=== PATIENT | male | born 1945 | race Caucasian/White ===

== ENCOUNTER 2021-01-22 17:29 | Outpatient (RCR) | payer MEDICARE, OTHER, SELFPAY ==
[2021-01-22] MEDS: COVID-19 VACC, MRNA(PFIZER)/PF 30 MCG/0.3 ML SYRINGE IM (15:23)
[2021-02-12] MEDS: COVID-19 VACC, MRNA(PFIZER)/PF 30 MCG/0.3 ML SYRINGE IM (14:38)
== END 2021-04-28 23:59 ==
LOC: IMMUN 17:29
PROVIDERS: PCP Family Medicine; Visit Provider Family Medicine
DX: Z23 Encounter for immunization (principal)
CPT/HCPCS: 0001A; 0002A; 91300

== ENCOUNTER → 2021-07-23 12:36 | Outpatient (CLI) | payer MEDICARE, OTHER, SELFPAY ==
[2021-07-23] MEDS: Methacholine Chloride 18 ml neb kit INHALATION (13:00)
--- NOTE | 2021-07-23 16:10 | BRONCHALL_ITS ---
Bronchoprovocation Challenge Bronchoprovocation Challenge Bronchoprovocation Challenge: BRONCHOPROVOCATION STUDY INTERPRETATION Brief HPI: Patient is a 75 year old male, currently under the care of Dr. Enciso, who presents to [facility] for a bronchoprovocation study secondary to diagnosis of cough. Respiratory therapist reports good effort and reproducible results. Interpretation: Initial spirometry showed no large airways obstructive ventilatory defect. The patient was then given increasingly concentrated doses of methacholine in a stepwise/standardized fashion, using a modified ATS protocol. The patient?s maximum reduction in FEV1 was 5 percent predicted. Impression: Negative Bronchoprovocation study. This is NOT consistent with the diagnosis of asthma.
== END ==
LOC: PSN 12:38
PROVIDERS: PCP Family Medicine; Referring Provider Internal Medicine Critical Care Medicine; Visit Provider Internal Medicine Critical Care Medicine
DX: R05 Cough (principal)
CPT/HCPCS: 94070; 95070

== ENCOUNTER → 2022-04-22 | Outpatient (CLI) | payer MEDICARE, OTHER, SELFPAY ==
--- NOTE | 2022-04-22 11:49 | RAD_ITS ---
STUDY: X-RAY CHEST REASON FOR EXAM: Male, 76 years old. Chronic Cough TECHNIQUE: PA and lateral views of the chest. COMPARISON: None. FINDINGS: There is elevation of the right hemidiaphragm. There is no demonstrated pleural abnormality. There is borderline cardiomegaly. Normal mediastinum and braulio. Normal visualized pulmonary arteries. There is atherosclerotic tortuosity of the aortic arch and descending thoracic aorta. There are diffuse degenerative changes of the visualized thoracic spine. Normal visualized ribs, clavicles, and shoulders. There is no demonstrated abnormality of the visualized soft tissue structures of the upper abdomen. RAD/Chest PA and Lateral IMPRESSION: Elevation of the right hemidiaphragm. Electronically Signed: Lambert Almanza MD at 12:30 EDT ,
== END | disposition home or self-care (01) ==
LOC: RAD 11:49
PROVIDERS: PCP Family Medicine; Referring Provider Internal Medicine Critical Care Medicine; Visit Provider Internal Medicine Critical Care Medicine
DX: R05.3 Chronic cough (principal)
CPT/HCPCS: 71046

== ENCOUNTER → 2022-04-29 | Outpatient (CLI) | payer MEDICARE, OTHER, SELFPAY ==
--- NOTE | 2022-04-29 08:09 | CT_ITS ---
STUDY: CT CHEST WITHOUT CONTRAST REASON FOR EXAM: Male, 76 years old. Chronic cough with normal CXR RADIATION DOSAGE (If Supplied By Facility): CTDIvol = ( 17.32 ) mGy, DLP = ( 528.08 ) mGycm TECHNIQUE: Transaxial imaging was performed without the administration of intravenous contrast material. Multiplanar coronal and sagittal images were reformatted. Individualized dose optimization techniques were used for this CT. COMPARISON: Comparison is made with prior study dated 04/22/2022. FINDINGS: CHEST There is elevation of the right hemidiaphragm. There is no demonstrated pleural abnormality. There are calcifications of the coronary arteries. There are multiple small lymph nodes within the mediastinum, which are normal in size and morphology most compatible with reactive lymph hyperplasia. Normal hilar regions. Normal unenhanced pulmonary arteries. There is atherosclerotic calcification of the aortic arch with tortuosity and elongation of the aortic arch and descending thoracic aorta. There are multi-level degenerative changes of the thoracic spine. Multiple hepatic cysts. CT/Chest without Contrast IMPRESSION: Elevation of the right hemidiaphragm. Multiple hepatic cysts. Electronically Signed: Lambert Almanza MD at 10:49 EDT ,
== END | disposition home or self-care (01) ==
LOC: CT 08:07
PROVIDERS: PCP Family Medicine; Referring Provider Internal Medicine Critical Care Medicine; Visit Provider Internal Medicine Critical Care Medicine
DX: R05.3 Chronic cough (principal); K76.89 Other specified diseases of liver
CPT/HCPCS: 71250

== ENCOUNTER 2023-01-02 21:29 | Inpatient (IN) | payer MEDICARE, OTHER, SELFPAY ==
[2023-01-02] VITALS (8 sets, daily range): BP systolic 98–113; BP diastolic 52–94; PULSE 96–107; RESP 21–45; TEMP 36.8; O2SAT 94–98; BMI 27.1
--- NOTE | 2023-01-02 19:27 | PCM.HOSP.N ---
Hospitalist Note TRANSFER INFORMATION SUMMARY: The patient is a 77 y/o M w/ PMHx: CKD stage III unclear subtype, Essential tremor, PAF on Eliquis, HTN, HLD, GERD, Allergic rhinitis, Hx COVID-19 11/2022 requiring hospitalization with associated Chronic Hypoxic Respiratory Failure (3L NC), following with Dr. Enciso Pulmonary Medicine for chronic cough with initial concern possible Asthma variant however now more concern chronic idiopathic cough with most recent visit 12/27/[address] evaluation to rule out microaspiration, restart allergy immunotherapies with start on gabapentin versus pregabalin if these other etiologies ruled out in case chronic idiopathic cough who presents to the [facility] ED on 01/02/23 with history of increasing cough, nonproductive above his prior baseline with increasing fatigue and malaise with no specific fevers or chills and no excessive dyspnea above his prior baseline however at home he reportedly checked his oxygen level and it was 70% despite being on his 3 L nasal cannula with no reported recent orthopnea, weight gain and only mild edema to his lower extremities specifically with just a sock line therefore not above baseline however given ongoing events and hypoxia prompted ED evaluation. Work-up in the outside facility included: VS: 118/64, 112 (AF), 24, 36.8, NRB with ABG obtained with 94% oxygenation at that time time-->High flow NC (15L) 96% EKG: atrial fibrillation with rate 110s, depressions I and mild depression on III but baseline EKGs prior with notable ST-T changes also. Medications: Vanc/Zosyn, Lasix 40 mg IV CXR with moderate interval worsening of mixed bilateral interstitial and alveolar airspace disease greatest throughout the left lung likely on the basis of atypical infection or inflammatory process, CTPA w/ limited exam secondary to respiratory motion artifact, no definite pulmonary embolism the level of the proximal segmental pulmonary arteries, moderate interval worsening of multifocal bilateral groundglass opacities with interlobular septal thickening greatest throughout the left lung and right upper lobe, may be on the basis of worsening atypical infection or inflammatory process, superimposed pulmonary edema cannot be excluded, multiple subcentimeter mediastinal and left hilar lymph nodes likely reactive in etiology, ABG with pH 7.34, PCO2 42.1, PO2 76, bicarb 22.9, O2 saturation 94%, lactic acid 3.7, troponin high-sensitivity initial 16.7, BNP 3114, BMP with sodium 142, potassium 4.6, chloride 105, BUN/creatinine 24/1.39, glucose 159, CBC with WBC 17.7, hemoglobin 14.1, platelet 269 with left shift and increased monocytes. Transfer: ICU bed, possible BL PNA, Acute Hypoxic Respiratory Failure, Possible CHF exacerbation.
--- NOTE | 2023-01-02 22:01 | ECHOD_ITS ---
Reason For Study: Dyspnea/SOB Procedure This was a 2D Doppler, Color Flow transthoracic echocardiogram. Technically difficult study, patient scanned sitting upright due to SOB and Coughing. Exam performed portable in ICU/CCU. Left Ventricle Normal LV size. Left ventricular systolic function is normal. The estimated ejection fraction is 65 %. No regional wall motion abnormalities noted. Right Ventricle Normal RV size. Normal systolic function. Atria Normal left atrium. Normal right atrium. Mitral Valve Normal mitral valve. Tricuspid Valve Normal tricuspid valve. Mild tricuspid valve insufficiency. Pulmonary artery systolic pressure is 26 mmHg. Aortic Valve Trisinus/trileaflet aortic valve. Mild focal aortic valve calcification. Mild (1+) aortic valve insufficiency. Great Vessels Mildly dilated aortic root. The pulmonary artery is normal size. Normal inferior vena cava. Pericardium/Pleural No pericardial effusion. MMode/2D Measurements & Calculations LVIDd: 5.0 cm IVSd: 0.75 cm Ao root diam: 4.1 cm LVIDs: 4.1 cm LVPWd: 0.91 cm LA dimension: 4.2 cm FS: 19.3 % LAV(MOD-bp): 36.4 ml LA A4 area: 12.2 cm2 RA A4 area: 13.3 cm2 LAV(MOD-bp) Indexed: 18.7 ml/m2 LAV(MOD-sp2): 34.5 ml LAV(MOD-sp4): 29.2 ml Doppler Measurements & Calculations MV E max andry: 112.6 cm/sec MV V2 max: 96.2 cm/sec Ao V2 max: 84.6 cm/sec MV max P.7 mmHg Ao max P.9 mmHg MV V2 mean: 47.1 cm/sec Ao V2 mean: 60.5 cm/sec MV mean P.1 mmHg Ao mean P.7 mmHg MV V2 VTI: 21.6 cm Ao V2 VTI: 16.8 cm AI max andry: 394.1 cm/sec LV V1 max: 61.5 cm/sec PA V2 max: 70.7 cm/sec AI max P.1 mmHg LV V1 max P.5 mmHg AI dec slope: 165.8 cm/sec2 AI P1/2t: 696.1 msec TR max andry: 242.1 cm/sec TR max P.4 mmHg ECHO/Echo Complete Interpretation Summary Normal LV size. Left ventricular systolic function is normal. The estimated ejection fraction is 65 %. Mildly dilated aortic root. Mild (1+) aortic valve insufficiency. Pulmonary artery systolic pressure is 26 mmHg. Ordering Physician: Jules Parkinson Performed By: Luc Flores RCS
--- NOTE | 2023-01-02 22:09 | HP.PCM.HOS_ITS ---
HPI - General General Date of Admission: 01/02/23 Date of Service: 01/02/23 Chief Complaint: Hypoxia HPI Narrative MADISON TAMEZ, is a 77 M with a significant history of CKD stage III unclear type, essential tremor, proximal A-fib on Eliquis, hypertension, hyperlipidemia, GERD, allergic rhinitis, history of COVID-19 in November 2022 requiring hospitalization with associated chronic hypoxic respiratory failure (3L nasal cannula oxygen), and who follows with Dr. Enciso pulmonary medicine for chronic cough with initial concern of possible asthma variant. However now more concerning chronic idiopathic cough with most recent visit 12/27/2022 with planned speech therapy evaluation to rule out microaspiration if restart allergy therapies fails; and who presents to outside hospital ED on 01/02/2023 with hypoxia of 62% on his chronic home oxygen of 3L but with no increasing cough or SOB above his baseline. Although he continues to have SOB and non productive cough that are all baseline. He denies any edema. He thinks he has lost some weight. Work-up in the outside facility included: Vital signs 118/64, 112 (A-fib), 24, 36.8 C; nonrebreather with ABG obtained with 94% oxygenation at that time. Transition to high flow nasal cannula (15 L) with oxygen 96%. EKG: Atrial fibrillation with rates of 110s, no change in EKG compared to prior. Medications: Vancomycin/Zosyn, Lasix 40 mg IV. Chest x-ray with moderate interval worsening of mixed bilateral interstitial and alveolar airspace disease greatest throughout the left lung likely on the basis of atypical infection or inflammatory process. CTPA with limited exam secondary to respiratory motion artifacts, no definite pulmonary embolism the level of the proximal segmental pulmonary arteries, moderate interval worsening of multifocal bilateral groundglass opacities with interlobular septal thickening greatest throughout the left lung and right upper lobe, may be on the basis of worsening atypical infection or inflammatory process, superimposed pulmonary edema cannot be excluded, multiple subsegmental mediastinal and left hilar lymph nodes likely reactive in etiology, ABG with pH of 7.34, PCO2 42.1, PO2 76, bicarb 22.9, oxygen saturation 94%, lactic acid 3.7, troponin high-sensitivity initial 16.7, BNP 3114, BMP with sodium of 142, potassium 4.6, chloride 105, BUN/creatinine 24/1.39, glucose 159, CBC with WBC of 17.7, hemoglobin 14.1, platelet 269 with left shift and increased monocytes. [facility] Medical History Allergic rhinitis Chronic respiratory failure with hypoxia CKD (chronic kidney disease), stage III Essential tremor History of COVID-19 HLD (hyperlipidemia) Hypercholesteremia Hypertension PAF (paroxysmal atrial fibrillation) Thyroid nodule Unexplained chronic cough Home Medications amlodipine 5 mg tablet (Norvasc) 5 mg PO DAILY 07/08/21 [History Last Taken Unknown] cholecalciferol (vitamin D3) 50 mcg (2,000 unit) chewable tablet 50 mcg PO DAILY 07/08/21 [History Last Taken Unknown] coenzyme Q10 100 mg capsule 100 mg PO DAILY 07/08/21 [History Last Taken Unknown] ezetimibe 10 mg-simvastatin 10 mg tablet (Vytorin) 1 tab PO DAILY 07/08/21 [History Last Taken Unknown] fluticasone propionate 50 mcg/actuation nasal spray,suspension 1 spray intranasal DAILY 07/08/21 [History Last Taken Unknown] magnesium citrate 100 mg capsule 100 mg PO DAILY 07/08/21 [History Last Taken Unknown] montelukast 10 mg tablet (Singulair) 10 mg PO DAILY 07/08/21 [History Last Taken Unknown] multivitamin (Multiple Vitamins tablet) 1 tab PO DAILY 07/08/21 [History Last Taken Unknown] omega-3 fatty acids 1,000 mg capsule (Fish Oil Concentrate) 3,000 mg PO DAILY 07/08/21 [History Last Taken Unknown] omeprazole 20 mg capsule,delayed release 20 mg PO DAILY 07/08/21 [History Last Taken Unknown] albuterol sulfate 2.5 mg/3 mL (0.083 %) solution for nebulization 2.5 mg (3 mL) inhalation Q4H PRN shortness of breath or wheezing #180 mL 05/20/22 [Rx Last Taken Unknown] topiramate 25 mg tablet 25 mg PO DAILY 11/09/22 [History Last Taken Unknown] fluticasone propionate 230 mcg-salmeterol 21 mcg/actuation HFA inhaler (Advair HFA) 2 puff inhalation BID #3 ea 12/08/22 [Rx Last Taken Unknown] benzonatate 200 mg capsule 200 mg PO TID PRN cough #90 caps 12/10/22 [Rx Last Taken Unknown] guaifenesin 1,200 mg tablet, extended release 12 hr 1,200 mg PO Q12H #60 tabs 12/10/22 [Rx Last Taken Unknown] apixaban 5 mg tablet (Eliquis) 5 mg PO BID Check with primary doctor 12/27/22 [History Last Taken Unknown] Allergy/AdvReac Type Severity Reaction Status Date / Time house dust Allergy Intermediate Hives Verified 12/27/22 10:58 animal Allergy Intermediate Hives Uncoded 12/27/22 10:58 grass teofilo' Allergy Intermediate Hives Uncoded 12/27/22 10:58 molds Allergy Intermediate Food Uncoded 12/27/22 10:58 Allergy tree pollen Allergy Intermediate Hives Uncoded 12/27/22 10:58 weeds Allergy Intermediate Hives Uncoded 12/27/22 10:58 week pollen Allergy Intermediate Hives Uncoded 12/27/22 10:58 Family History Father Prostate cancer Sister Diabetes Surgical History H/O colonoscopy History of arthroscopy of shoulder History of eye surgery Social History household members: spouse Smoking Status: Former smoker quit date: 11/21/1966 how long ago did patient quit smoking: Quit cigarette tobacco use 11/21/1966. alcohol intake: never substance use type: does not use ROS ROS Narrative Pertinent positives and pertinent negatives as noted in HPI. All other systems were reviewed and are negative Vital Signs Vital Signs Vital Signs: 01/02/23 21:51 01/02/23 22:00 Pulse Strength Normal (2+) Respiratory Effort Short of Breath Accessory Muscle Use Respiratory Pattern Tachypnea Oxygen Delivery Method Airvo Oxygen Flow Rate (L/min) 50 Fraction of Inspired Oxygen (FIO2) 83 Weight Weight: 80.9 kg Body Mass Index (BMI) 27.1 Physical Exam Narrative Physical exam: General: Well-nourished, well-developed. Head: Normocephalic, atraumatic, no tenderness Eyes: Vision is grossly intact. EOMI ENT, no trauma, moist mucous membranes, no rhinorrhea Neck: Nontender, No thyromegaly. CVS: Tachycardia. S1-S2 present. No murmur, gallop or rub. Respiratory : Conversational dyspnea; Bibasilar Fine rales. Chest wall nontender, no wheezing Abdomen: Soft, nontender, nondistended, normal bowel sounds, no masses : Deferred Back: Nontender, no CVA tenderness, no midline spinal tenderness, deformities, step-offs Extremities: Nontender full range of motion, no trauma Skin: Normal color, no trauma, abrasions Neuro: Alert, oriented, cranial nerves II through XII grossly intact. Psychiatry: Normal mood. Normal affect. Not depressed. Not anxious. Results Lab / Micro Data Result Diagrams: 01/02/23 23:00 Assessment & Plan Assessment/Plan (1) Hypoxia: (2) Acute and chronic respiratory failure with hypoxia: (3) Congestive heart failure: (4) Interstitial lung disease: PLAN: Plan Acute on on chronic respiratory failure with hypoxia/Sepsis The patient presented with sepsis due to (pneumonia) with acute sepsis related organ dysfunction as evidenced by (lactic acidosis and respiratory failure). SIRS criteria: Respiratory rate more than 20 Heart rate more than 90 WBC more than 12,000 organ dysfunction: Lactate more than 2 mmol/L. Required Airvo. Trend lactic acid. Started on vancomycin and Zosyn also has been continued.[id number] DuoNeb and PRN albuterol ordered. Other differentials include congestive heart failure as BNP was elevated at outside hospital. Unspecified whether present for reduced ejection fraction. Check echocardiogram. We will put patient on IV Lasix. Fluid restriction ordered. Daily weights ordered. Also on differential is interstitial lung disease: Scheduled Solu-Medrol ordered. Admitted to intensive care unit. Groundskeeper consult. Trend CBC and BMP. History of A-fib Stable. Eliquis continued. Hypertension Blood pressure is stable. Continue home blood pressure medications. As needed hydralazine ordered. Trend blood pressure and adjust blood pressure medications. DVT prophylaxis: Eliquis as above. Charges/Coding Visit Charges Inpatient E&M: 45974 Init Hosp L2
[2023-01-02] MEDS: 0.9% Saline Lock 10 ML Syringe IV (23:16)
[2023-01-02] MEDS: MethylPREDNISolone 125 MG/2 ML Vial IV (23:16)
[2023-01-02 23:40] LABS: Anion Gap 8 (5-15); BUN 21 mg/dL (7-18); BUN/Creat Ratio 15.3 RATIO (10-20); Calcium,Total 8.9 mg/dL (8.5-10.1); Chloride 108 mmol/L (98-107); Creatinine, Serum 1.37 mg/dL (0.70-1.30); EST Glomerular Filtration Rate 53 mL/min (>60); Est Glom Filt Rate - Afr Amer 65 mL/min (>60); Estimated Creatinine Clearance 42.99 ml/min; Glucose 162 mg/dL (74-106); Potassium 3.7 mmol/L (3.5-5.1); Sodium Level 142 mmol/L (136-145)
[2023-01-03] VITALS (32 sets, daily range): BP systolic 88–131; BP diastolic 49–77; PULSE 70–103; RESP 20–45; TEMP 35.8–36.8; O2SAT 75–98
[2023-01-03 00:01] LABS: Lactic Acid 1.7 mmol/L (0.4-1.9)
--- NOTE | 2023-01-03 00:59 | PHA.PHARE_ITS ---
Consult Pharmacy has been consulted to manage selected antiobiotic: Vancomycin Type of Consult: New start Suspected Infection: Pneumonia Labs: Sodium 142 mmol/L (136-145) 01/02/23 23:00 Potassium 3.7 mmol/L (3.5-5.1) 01/02/23 23:00 Chloride 108 mmol/L (98-107) H 01/02/23 23:00 Carbon Dioxide 26.0 mmol/L (21.0-32.0) 01/02/23 23:00 Anion Gap 8 (5-15) 01/02/23 23:00 BUN 21 mg/dL (7-18) H 01/02/23 23:00 Creatinine 1.37 mg/dL (0.70-1.30) H 01/02/23 23:00 Est GFR (MDRD) Af Amer 65 mL/min (>60) 01/02/23 23:00 Est GFR (MDRD) Non-Af 53 mL/min (>60) L 01/02/23 23:00 BUN/Creatinine Ratio 15.3 RATIO (10-20) 01/02/23 23:00 Glucose 162 mg/dL (74-106) H 01/02/23 23:00 Microbiology: Microbiology 01/02/23 23:00 Urine, Clean Catch Legionella Antigen - Final 01/02/23 23:00 Urine, Clean Catch Streptococcus pneumoniae Antigen (M - Final Goal Trough: 15-20 mcg/mL Pharmacy Plan for Drug Dosing: Pharmacy Service will continue to monitor and adjust dosing as required. Medications Vancomycin HCl 1,250 mg/ (Sodium Chloride) 275 mls @ 167 mls/hr IV X1 ONE Stop: 01/03/23 02:08 Last Admin: 01/03/23 00:55 Dose: 167 mls/hr Vancomycin HCl () 500 mg in 100 mls @ 100 mls/hr IV Q12H [facility] Follow-Up Labs: Trough Vancomycin Labs to be done on [date and time ordered]: 01/04 @ 3870
[2023-01-03 05:15] LABS: Absolute Lymphocyte Count 0.58 X10^3/uL (0.83-4.51); Absolute Neutrophil Count 12.6 X10^3/uL (2.0-7.7); Basophil# 0.03 X10^3/uL; Basophil% 0.2 % (0-1); Hematocrit 40.9 % (40-54); Hemoglobin 12.8 g/dL (13.0-16.5); Lymphocyte # 0.58 X10^3/ul (0.83-4.51); Lymphocyte % 4.3 % (19-41); Mean Corp Hgb Conc 31.3 g/dL (32-36); Mean Corpuscular Volume 95.8 fL (80-94); Monocyte# 0.21 X10^3/uL; Monocyte% 1.6 % (0-10); NRBC Flagged by Analyzer 0 % (0-5); Neutrophil # 12.59 X10^3/uL (2.7-7.7); Neutrophil % 93.1 % (47-70); POSITIVE DIFFERENTIAL YES; Platelet Count 219 K/mm3 (150-450); RBC Distribution Width CV 14.7 % (11.6-14.6); RBC Distribution Width SD 51.7 fl (35.1-43.9); Red Blood Count 4.27 M/mm3 (4.6-6.2); White Blood Count 13.5 K/mm3 (4.4-11.0)
[2023-01-03 05:17] LABS: Differential Indicated SCAN CRITERIA MET
[2023-01-03 05:36] LABS: ALB/GLOB Ratio 0.4 RATIO (0.9-2.4); AST(SGOT) 14 U/L (15-37); Alanine Aminotransfer ALT/SGPT 16 U/L (16-61); Albumin, Serum 1.8 g/dL (3.2-5.0); Alkaline Phosphatase 81 U/L (45-117); Anion Gap 8 (5-15); BUN 24 mg/dL (7-18); BUN/Creat Ratio 19.2 RATIO (10-20); Calcium,Total 8.6 mg/dL (8.5-10.1); Chloride 109 mmol/L (98-107); Creatinine, Serum 1.25 mg/dL (0.70-1.30); EST Glomerular Filtration Rate 59 mL/min (>60); Est Glom Filt Rate - Afr Amer 72 mL/min (>60); Estimated Creatinine Clearance 47.12 ml/min; Globulin 4.5 g/dL (2.2-4.2); Glucose 215 mg/dL (74-106); Potassium 3.7 mmol/L (3.5-5.1); Protein, Total 6.3 g/dL (6.4-8.2); Sodium Level 142 mmol/L (136-145)
[2023-01-03 05:56] LABS: Anisocytosis RARE; Macrocytosis RARE
--- NOTE | 2023-01-03 06:57 | EX.PCM.CONCC ---
Assessment & Plan Assessment/Plan (1) Acute and chronic respiratory failure with hypoxia: (2) Congestive heart failure: PLAN: Plan RECOMMENDATIONS: 1. Obtain echocardiogram 2. Continue diuretics as tolerated 3. Empiric antibiotics pending culture 4. Wean supplemental oxygen as tolerated 5. Potentially repeat CT scan once patient is euvolemic 6. Increase activity as tolerated 7. Transition to nasal cannula once Airvo is at 40% IMPRESSIONS: 1. Acute hypoxic respiratory failure Unclear exact etiology. Patient did have COVID-19 last month, so postinflammatory pulmonary fibrosis would be a concern. CT of the chest does show some groundglass opacities and may be consistent with an atypical pneumonia. Patient is not reporting any change in cough, but BNP is significantly elevated indicating possible CHF. We will continue to diurese as tolerated. Reasonable to continue with empiric antibiotics pending cultures and response to diuretics. Mediastinal lymphadenopathy may be secondary to previous COVID. Steroids are reasonable for now. 2. A-fib with RVR Patient with a history of chronic A-fib on anticoagulation. Heart rate appears to be better controlled at this time. We will continue with baseline medications. High clinical suspicion for an element of congestive heart failure, but echocardiogram is currently pending. 3. Hypertension/advanced age/concern for aspiration/environmental allergies Complicates care, management, recovery and prognosis. Okay to continue with baseline medications for hypertension. Patient could be continued on baseline allergy medications. Will obtain a speech therapy evaluation given outpatient concerns. HPI Consult Data Date of Consult: 01/03/23 HPI Narrative Reason for Consultation: Acute hypoxic respiratory failure HPI Narrative: MADISON TAMEZ is a 77 M, with past medical history listed below, who presents to [facility] as a transfer from an outside facility secondary to acute hypoxic respiratory failure. Patient has been on 3 L/min nasal cannula oxygen since having COVID-19 in November 2022. Patient does follow-up with Dr. Enciso at baseline and there was some concern for microaspiration. Patient also has chronic idiopathic cough. Patient reportedly had presented to an outside emergency department after noting that his oxygen level was 62% on his 3 L nasal cannula. Patient continues to have shortness of breath and a nonproductive cough. Patient does not believe this is significantly changed from his baseline. Patient denies any lower extremity edema. At the outside facility, patient was noted to be in A-fib with a rate of 112 bpm. Patient was afebrile and required a nonrebreather to maintain saturations. Patient was given vancomycin and Zosyn along with 40 mg of IV Lasix and a chest x-ray reportedly showed bilateral interstitial alveolar airspace disease. A CTA of the chest reportedly had significant motion artifact but had moderate interval worsening of groundglass opacities in bilateral upper lobes along with multiple subsegmental mediastinal and left hilar lymphadenopathy. An ABG at that time showed a pH of 7.3/42/76/94%. Patient's BNP was elevated at 3114 and his creatinine was 1.39. Patient did have a leukocytosis with a white count of 17.7. Patient was admitted to the intensive care unit and placed on Airvo to maintain saturations. Patient was requiring 80% FiO2 initially to maintain saturations. Morning labs are listed below. Patient is a relatively poor historian. Patient does report that he has not had any lower extremity edema has no reported no known history of CHF. Patient is not on diuretics at baseline. Patient does have a history of A-fib and is on Eliquis at baseline. Patient also has significant allergies, but does not report any noxious exposures recently. Review of systems otherwise negative from a constitutional, HEENT, respiratory, cardiovascular, GI, genitourinary, musculoskeletal, skin, neurologic, psychiatric and hematologic system unless stated above. [facility] Medical History Allergic rhinitis Chronic respiratory failure with hypoxia CKD (chronic kidney disease), stage III Essential tremor History of COVID-19 HLD (hyperlipidemia) Hypercholesteremia Hypertension PAF (paroxysmal atrial fibrillation) Thyroid nodule Unexplained chronic cough Home Medications amlodipine 5 mg tablet (Norvasc) 5 mg PO DAILY 07/08/21 [History Last Taken Unknown] cholecalciferol (vitamin D3) 50 mcg (2,000 unit) chewable tablet 50 mcg PO DAILY 07/08/21 [History Last Taken Unknown] coenzyme Q10 100 mg capsule 100 mg PO DAILY 07/08/21 [History Last Taken Unknown] ezetimibe 10 mg-simvastatin 10 mg tablet (Vytorin) 1 tab PO DAILY 07/08/21 [History Last Taken Unknown] fluticasone propionate 50 mcg/actuation nasal spray,suspension 1 spray intranasal DAILY 07/08/21 [History Last Taken Unknown] magnesium citrate 100 mg capsule 100 mg PO DAILY 07/08/21 [History Last Taken Unknown] montelukast 10 mg tablet (Singulair) 10 mg PO DAILY 07/08/21 [History Last Taken Unknown] multivitamin (Multiple Vitamins tablet) 1 tab PO DAILY 07/08/21 [History Last Taken Unknown] omega-3 fatty acids 1,000 mg capsule (Fish Oil Concentrate) 3,000 mg PO DAILY 07/08/21 [History Last Taken Unknown] omeprazole 20 mg capsule,delayed release 20 mg PO DAILY 07/08/21 [History Last Taken Unknown] albuterol sulfate 2.5 mg/3 mL (0.083 %) solution for nebulization 2.5 mg (3 mL) inhalation Q4H PRN shortness of breath or wheezing #180 mL 05/20/22 [Rx Last Taken Unknown] topiramate 25 mg tablet 25 mg PO DAILY 11/09/22 [History Last Taken Unknown] fluticasone propionate 230 mcg-salmeterol 21 mcg/actuation HFA inhaler (Advair HFA) 2 puff inhalation BID #3 ea 12/08/22 [Rx Last Taken Unknown] benzonatate 200 mg capsule 200 mg PO TID PRN cough #90 caps 12/10/22 [Rx Last Taken Unknown] guaifenesin 1,200 mg tablet, extended release 12 hr 1,200 mg PO Q12H #60 tabs 12/10/22 [Rx Last Taken Unknown] apixaban 5 mg tablet (Eliquis) 5 mg PO BID Check with primary doctor 12/27/22 [History Last Taken Unknown] Allergy/AdvReac Type Severity Reaction Status Date / Time house dust Allergy Intermediate Hives Verified 12/27/22 10:58 animal Allergy Intermediate Hives Uncoded 12/27/22 10:58 grass teofilo' Allergy Intermediate Hives Uncoded 12/27/22 10:58 molds Allergy Intermediate Food Uncoded 12/27/22 10:58 Allergy tree pollen Allergy Intermediate Hives Uncoded 12/27/22 10:58 weeds Allergy Intermediate Hives Uncoded 12/27/22 10:58 week pollen Allergy Intermediate Hives Uncoded 12/27/22 10:58 Family History Father Prostate cancer Sister Diabetes Surgical History H/O colonoscopy History of arthroscopy of shoulder History of eye surgery Social History household members: spouse Smoking Status: Former smoker quit date: 11/21/1966 how long ago did patient quit smoking: Quit cigarette tobacco use 11/21/1966. alcohol intake: never substance use type: does not use ROS ROS Narrative See HPI Physical Exam Const alert and oriented x3 Constitutional Narrative: Significant cough that is nonproductive throughout the evaluation. Mild conversational dyspnea General Appearance: cooperative and well developed HEENT normocephalic, head/scalp atraumatic and moist oral mucous membranes HEENT Narrative: On Airvo and tolerating well Eyes PERRL and EOMs intact bilaterally Neck full ROM and no lymphadenopathy Chest inspection of chest normal Resp Effort and Inspection: actively coughing non-productive; Negative for able to speak in complete sentences Auscultation: rales bilateral; Negative for rhonchi or wheezes Percussion: Negative for dullness Cardio regular rate, S1 normal heart sound, S2 normal heart sound, no murmurs, no rub and no gallops Rhythm: abnormal rhythm irregularly irregular GI normal to inspection, nondistended, normoactive bowel sounds no CVA tenderness Extremity no clubbing, cyanosis or edema Skin no rashes or lesions noted Neuro oriented x3, CN's II-XII intact bilaterally, moves all extremities and no focal motor deficits Psych cooperative Mood & Affect: anxious Medical Records Data Attestation: I reviewed the patient's medical records Lab / Micro Data Attestation: I reviewed the patient's lab results. Result Diagrams: 01/03/23 05:05 01/03/23 05:05 Labs: Laboratory Results - last 24 hr 01/02/23 23:00: Lactic Acid 1.7 01/02/23 23:00: Sodium 142, Potassium 3.7, Chloride 108 H, Carbon Dioxide 26.0, Anion Gap 8, BUN 21 H, Creatinine 1.37 H, Estim Creat Clear Calc 42.99, Est GFR (MDRD) Af Amer 65, Est GFR (MDRD) Non-Af 53 L, BUN/Creatinine Ratio 15.3, Glucose 162 H, Calcium 8.9 01/03/23 05:05: WBC 13.5 H, RBC 4.27 L, Hgb 12.8 L, Hct 40.9, MCV 95.8 H, MCH 30.0, MCHC 31.3 L, RDW Std Deviation 51.7 H, RDW Coeff of Scotty 14.7 H, Plt Count 219, MPV 10.0, Immature Gran % (Auto) 0.800, Neut % (Auto) 93.1 H, Lymph % (Auto) 4.3 L, Wolfe % (Auto) 1.6, Eos % (Auto) 0.0, Baso % (Auto) 0.2, Absolute Neuts (auto) 12.6 H, Absolute Lymphs (auto) 0.58 L, Nucleated RBC % 0, Anisocytosis RARE, Macrocytosis RARE 01/03/23 05:05: Sodium 142, Potassium 3.7, Chloride 109 H, Carbon Dioxide 25.0, Anion Gap 8, BUN 24 H, Creatinine 1.25, Estim Creat Clear Calc 47.12, Est GFR (MDRD) Af Amer 72, Est GFR (MDRD) Non-Af 59 L, BUN/Creatinine Ratio 19.2, Glucose 215 H, Calcium 8.6, Total Bilirubin 0.80, AST 14 L, ALT 16, Alkaline Phosphatase 81, Total Protein 6.3 L, Albumin 1.8 L, Globulin 4.5 H, Albumin/Globulin Ratio 0.4 L Micro: Microbiology 01/02/23 23:00 Urine, Clean Catch Legionella Antigen - Final 01/02/23 23:00 Urine, Clean Catch Streptococcus pneumoniae Antigen (M - Final ABG Data Attestation: I personally reviewed and interpreted this ABG as follows: (Acute respiratory and metabolic acidosis with increased AA gradient) Charges/Coding Visit Charges Inpatient E&M: 03135 Init Hosp L3
[2023-01-03] MEDS: Atorvastatin Calcium 10 MG Tablet 5 MG PO (07:51)
[2023-01-03] MEDS: guaiFENesin 1,200 MG Tablet 1200 MG PO ×2 (07:52→21:31)
[2023-01-03] MEDS: Ezetimibe 10 MG Tablet PO (07:52)
[2023-01-03] MEDS: Topiramate 25 MG Tablet PO (07:52)
[2023-01-03] MEDS: Multivitamins,Therapeutic Tablet 1 TABLET PO (07:52)
[2023-01-03] MEDS: Pantoprazole Sodium 20 MG Tablet PO (07:52)
[2023-01-03] MEDS: Furosemide 40 MG/4 ML Vial IV ×2 (07:52→17:27)
[2023-01-03] MEDS: APIXABAN 5 MG TABLET PO ×2 (07:52→21:31)
[2023-01-03] MEDS: Montelukast 10 MG Tablet PO (07:52)
[2023-01-03 08:02] LABS: BNP,B-Type NATRIURETIC PEPTIDE 284.1 pg/mL (0-100)
--- NOTE | 2023-01-03 15:15 | CASEMGMT ---
RN?CM?DEVOPS DEVELOPER?CM?to room to meet with patient for initial transition planning/care coordination?assessment.?RN?CM?introduced self and role at [facility].? Pt voices understanding and consents to?assessment?at this time.? Pt resting in bed in no distress at this time.? Pt is A/O at this time and answers all questions appropriately.?? Care providers, pharmacy, and demographics verified/updated at this time.? PCP:?Dr Fry, but he is retiring either today or tomorrow. Pt states he will be starting to see Dr Gomez in the same office. He is interested in switching to a different PCP. Pt provided w/list of local PCP's. Specialists:?Dr Enciso-pulmonology, Dr Otoole-cardiology in [place] Preferred Pharmacy:?[facility] Insurance:?MCR, [employer] Prescription Benefit:?yes Living Will/HPOA:?Pt has LW and HCPOA, who is his , Bina JOHNSONOK:?, Bina. Living Arrangements:?Lives w/his , in one-story basement w/one step to enter. Indep w/ADL's. manages his medications and does home mgmt tasks. Transportation:?Pt states drives self and states no transportation concerns at this time.?? also drives. DME: States has the following DME:??built-in shower seat, pulse ox, O2 @ 3 l/m through [facility]--has concentrator and portable O2 ( can bring in @ d/c), nebulizer. Pt has a cane and walker, but does not use. ? Pt states no need for further DME at this time.?? HHC/SNF:?No hx of SNF. Currently active w/[facility], SN. Pt and both wish for pt to return home w/JOSHUA w/[facility] and they decline list of other options, states would like pt to also get therapy and pt agreeable. JOSHUA order placed for SN. PT/OT added. Pt and wish for pt to return home and state no concerns with going home at time of discharge.??CM?to follow for any increase in home oxygen needs and any further discharge planning/needs.? Pt and voice no further concerns/needs at this time.? PLAN:??Home w/resumption of HHC: SN. PT/OT added Follow for any increase in O2. Bam BSN?RN?CM
--- NOTE | 2023-01-03 16:08 | PN.HOSP_ITS ---
Reason for Visit Reason for Visit: Diagnoses Heart failure, unspecified (01/03/23) Interstitial pulmonary disease, unspecified (01/03/23) Acute and chronic respiratory failure with hypoxia (01/03/23) Hypoxemia (01/03/23) Subjective Subjective Was seen and examined today, he remains on high flow oxygen at this time, I talked briefly with critical care about his care, they feel the patient may have an element of congestive heart failure. Objective Data Objective Data Vital Signs: Vital Signs Temp Pulse Resp BP Pulse Ox O2 Del Method O2 Flow Rate 96.5 F L 86 33 H 109/55 L 91 Airvo 50 01/03/23 08:00 01/03/23 15:59 01/03/23 11:00 01/03/23 11:00 01/03/23 15:59 01/03/23 11:00 01/03/23 11:00 FiO2 75 01/03/23 15:59 Oxygen Flow Rate (L/min) 50 Oxygen Delivery Method Airvo Weight: 80.8 kg Body Mass Index (BMI) 27.1 Intake & Output: Intake and Output for Last 24 Hours 01/01/23 01/02/23 01/03/23 23:59 23:59 23:59 Intake Total 8.5 / 58.5 565 / 565 Output Total 300 / 300 Balance 8.5 / -41.5 265 / 265 Lab / Micro Data Result Diagrams: 01/03/23 05:05 01/03/23 05:05 Labs: Laboratory Results - last 24 hr 01/02/23 23:00: Lactic Acid 1.7 01/02/23 23:00: Sodium 142, Potassium 3.7, Chloride 108 H, Carbon Dioxide 26.0, Anion Gap 8, BUN 21 H, Creatinine 1.37 H, Estim Creat Clear Calc 42.99, Est GFR (MDRD) Af Amer 65, Est GFR (MDRD) Non-Af 53 L, BUN/Creatinine Ratio 15.3, Glucose 162 H, Calcium 8.9 01/03/23 05:05: WBC 13.5 H, RBC 4.27 L, Hgb 12.8 L, Hct 40.9, MCV 95.8 H, MCH 30.0, MCHC 31.3 L, RDW Std Deviation 51.7 H, RDW Coeff of Scotty 14.7 H, Plt Count 219, MPV 10.0, Immature Gran % (Auto) 0.800, Neut % (Auto) 93.1 H, Lymph % (Auto) 4.3 L, [place] % (Auto) 1.6, Eos % (Auto) 0.0, Baso % (Auto) 0.2, Absolute Neuts (auto) 12.6 H, Absolute Lymphs (auto) 0.58 L, Nucleated RBC % 0, Anisocytosis RARE, Macrocytosis RARE 01/03/23 05:05: Sodium 142, Potassium 3.7, Chloride 109 H, Carbon Dioxide 25.0, Anion Gap 8, BUN 24 H, Creatinine 1.25, Estim Creat Clear Calc 47.12, Est GFR (MDRD) Af Amer 72, Est GFR (MDRD) Non-Af 59 L, BUN/Creatinine Ratio 19.2, Glucose 215 H, Calcium 8.6, Total Bilirubin 0.80, AST 14 L, ALT 16, Alkaline Phosphatase 81, Total Protein 6.3 L, Albumin 1.8 L, Globulin 4.5 H, Albumin/Globulin Ratio 0.4 L 01/03/23 05:05: B-Natriuretic Peptide 284.1 H Micro: Microbiology 01/02/23 23:00 Urine, Clean Catch Legionella Antigen - Final 01/02/23 23:00 Urine, Clean Catch Streptococcus pneumoniae Antigen (M - Final Radiography Diagnostic Testing: Radiology Impression Echocardiogram 01/02/23 22:01 Interpretation Summary Normal LV size. Left ventricular systolic function is normal. The estimated ejection fraction is 65 %. Mildly dilated aortic root. Mild (1+) aortic valve insufficiency. Pulmonary artery systolic pressure is 26 mmHg. Ordering Physician: Jules Parkinson Performed By: Luc Flores RCS Physical Exam Const alert, oriented x3, no apparent distress and average body habitus General Appearance: cooperative, well kempt and well developed Orientation / Consciousness: awake, oriented to person, oriented to place and oriented to time HEENT normocephalic, head/scalp atraumatic and moist oral mucous membranes Eyes PERRL, EOMs intact bilaterally and conjunctivae normal Neck supple, no JVD, thyroid normal and no carotid bruits General: trachea midline Resp no retractions and no use of accessory muscles Resp Narrative: Breath sounds are decreased bilaterally Auscultation: Negative for rales, rhonchi or wheezes Cardio S1 normal heart sound, S2 normal heart sound, no murmurs, no rub and no gallops Cardio Narrative: Heart rate and rhythm is irregular GI normal to inspection, nondistended, normoactive bowel sounds, soft to palpation, non-tender and non-distended Extremity no clubbing, cyanosis or edema Skin no rashes or lesions noted General Skin Exam: no breakdown Neuro oriented x3, CN's II-XII intact bilaterally, moves all extremities, no focal motor deficits and no sensory deficits noted Sensorium / Orientation: awake, alert, oriented to person and oriented to place Speech: speech normal Psych affect normal Assessment & Plan Assessment/Plan (1) Acute and chronic respiratory failure with hypoxia: PLAN: Plan 1. Acute on chronic hypoxic respiratory failure-patient is currently on high flow oxygen, he will be monitored closely in the ICU, pulmonary medicine is par ticipating in his care #2 acute diastolic congestive heart failure-continue IV Lasix, monitor pulse ox #3 chronic [id number] is currently on apixaban, he is not currently on any rate limiting medication, heart rate remains controlled at this time #4 bilateral pulmonary infiltrates-possible pneumonia, patient remains on IV antibiotics at this time Total clinical time spent by myself addressing the patient's medical issues, reviewing all the data, and collaborating with the patient's care team: 35 minutes Charges/Coding Visit Charges Inpatient E&M: 60279 Subs Hosp L2
[2023-01-03] MEDS: Vancomycin IV 500 MG/100 ML BAG 100 MG IV (16:14)
--- NOTE | 2023-01-03 21:49 | NURSING ---
2200 medications given at 2131 by Tasia Pacheco RN. Unable to chart due to technical difficulties regarding user. Will attempt to chart when error is resolved.
--- NOTE | 2023-01-03 22:12 | NURSING ---
2200 medications now able to be charted retroactively as 2210.
[2023-01-04] VITALS (31 sets, daily range): BP systolic 92–118; BP diastolic 40–81; PULSE 70–99; RESP 15–40; TEMP 35.6–37.6; O2SAT 77–951
[2023-01-04] MEDS: Vancomycin IV 500 MG/100 ML BAG 100 MG IV ×2 (01:44→12:42)
[2023-01-04 03:49] LABS: Absolute Lymphocyte Count 0.85 X10^3/uL (0.83-4.51); Absolute Neutrophil Count 16.5 X10^3/uL (2.0-7.7); Basophil# 0.02 X10^3/uL; Basophil% 0.1 % (0-1); Hematocrit 38.6 % (40-54); Hemoglobin 12.2 g/dL (13.0-16.5); Lymphocyte # 0.85 X10^3/ul (0.83-4.51); Lymphocyte % 4.7 % (19-41); Mean Corp Hgb Conc 31.6 g/dL (32-36); Mean Corpuscular Hgb 29.6 pg (27.0-32.0); Mean Corpuscular Volume 93.7 fL (80-94); Mean Platelet Vol. 9.8 fl (6.2-12.0); Monocyte# 0.43 X10^3/uL; Monocyte% 2.4 % (0-10); NRBC Flagged by Analyzer 0 % (0-5); Neutrophil # 16.47 X10^3/uL (2.7-7.7); Neutrophil % 91.9 % (47-70); Platelet Count 256 K/mm3 (150-450); RBC Distribution Width CV 14.6 % (11.6-14.6); RBC Distribution Width SD 50.9 fl (35.1-43.9); Red Blood Count 4.12 M/mm3 (4.6-6.2); White Blood Count 17.9 K/mm3 (4.4-11.0)
[2023-01-04 04:24] LABS: Anion Gap 9 (5-15); BUN 33 mg/dL (7-18); BUN/Creat Ratio 21.9 RATIO (10-20); Calcium,Total 8.5 mg/dL (8.5-10.1); Chloride 105 mmol/L (98-107); Creatinine, Serum 1.51 mg/dL (0.70-1.30); EST Glomerular Filtration Rate 48 mL/min (>60); Est Glom Filt Rate - Afr Amer 58 mL/min (>60); Estimated Creatinine Clearance 39.01 ml/min; Glucose 232 mg/dL (74-106); Potassium 3.3 mmol/L (3.5-5.1); Sodium Level 140 mmol/L (136-145)
[2023-01-04] MEDS: Potassium Chloride Oral Tablet 20 MEQ 40 MEQ PO (06:47)
--- NOTE | 2023-01-04 07:26 | PN.CC_ITS ---
Assessment & Plan Assessment/Plan (1) Acute and chronic respiratory failure with hypoxia: (2) Congestive heart failure: PLAN: Plan RECOMMENDATIONS: 1. Possibly repeat CT if not improving with adequate diuresis 2. Continue diuretics as tolerated 3. Empiric antibiotics pending culture 4. Wean supplemental oxygen as tolerated 5. Potentially add limited echo with bubble study 6. Await speech therapy evaluation 7. Transition to nasal cannula once Airvo is at 40% IMPRESSIONS: 1. Acute hypoxic respiratory failure Unclear exact etiology. Patient did have COVID-19 last month, so postinflammatory pulmonary fibrosis would be a concern. CT of the chest does show some groundglass opacities and may be consistent with an atypical pneumonia. Patient is not reporting any change in cough, but BNP is significantly elevated indicating possible CHF. Patient has not had a significant diuresis over the last 24 hours. Reasonable to continue with empiric antibiotics pending cultures and response to diuretics. Mediastinal lymphadenopathy may be secondary to previous COVID. Steroids are reasonable for now. Lower PASP is odd given the amount of supplemental oxygen patient is requiring. May attempt a repeat CT scan if patient is not improving with adequate diuresis. Would continue with empiric antibiotics for now. Bronchoscopy for BAL will likely result in intubation given high FiO2 requirements, so attempting to hold off. 2. A-fib with RVR Patient with a history of chronic A-fib on anticoagulation. Heart rate appears to be better controlled at this time. We will continue with baseline medications. Patient's echocardiogram was not significantly changed. Patient does have some AI, but pulmonary artery pressures are lower than expected given the amount of supplemental oxygen required. EF is preserved. 3. Hypertension/advanced age/concern for aspiration/environmental allergies Complicates care, management, recovery and prognosis. Okay to continue with baseline medications for hypertension. Patient could be continued on baseline allergy medications. Will await a speech therapy evaluation given outpatient concerns. Subjective Subjective Patient did okay overnight. Patient subjectively feels unchanged compared to yesterday. Patient continues to have paroxysms of coughing with desaturation. Nursing reports patient desaturates rapidly with removal of Airvo. Objective Data Objective Data Vital Signs: Vital Signs Temp Pulse Resp BP Pulse Ox O2 Del Method O2 Flow Rate 36.1 C L 85 40 H 92/56 L 94 Airvo 50 01/04/23 04:00 01/04/23 06:00 01/04/23 06:00 01/04/23 06:00 01/04/23 06:00 01/04/23 06:00 01/04/23 06:00 FiO2 80 01/04/23 06:00 Oxygen Flow Rate (L/min) 50 Oxygen Delivery Method Airvo Weight: 80.4 kg Body Mass Index (BMI) 27.1 Intake & Output: Intake and Output for Last 24 Hours 01/02/23 01/03/23 01/04/23 23:59 23:59 23:59 Intake Total 8.5 / 58.5 1215 / 1215 150 / 150 Output Total 700 / 990 500 / 500 Balance 8.5 / -41.5 515 / 225 -350 / -350 Lab / Micro Data Attestation: I reviewed the patient's lab results. Result Diagrams: 01/04/23 03:41 01/04/23 03:41 Labs: Laboratory Results - last 24 hr 01/03/23 05:05: B-Natriuretic Peptide 284.1 H 01/04/23 03:41: WBC 17.9 H, RBC 4.12 L, Hgb 12.2 L, Hct 38.6 L, MCV 93.7, MCH 29.6, MCHC 31.6 L, RDW Std Deviation 50.9 H, RDW Coeff of Scotty 14.6, Plt Count 256, MPV 9.8, Immature Gran % (Auto) 0.900, Neut % (Auto) 91.9 H, Lymph % (Auto) 4.7 L, [place] % (Auto) 2.4, Eos % (Auto) 0.0, Baso % (Auto) 0.1, Absolute Neuts (auto) 16.5 H, Absolute Lymphs (auto) 0.85, Nucleated RBC % 0 01/04/23 03:41: Sodium 140, Potassium 3.3 L, Chloride 105, Carbon Dioxide 26.0, Anion Gap 9, BUN 33 H, Creatinine 1.51 H, Estim Creat Clear Calc 39.01, Est GFR (MDRD) Af Amer 58 L, Est GFR (MDRD) Non-Af 48 L, BUN/Creatinine Ratio 21.9 H, Glucose 232 H, Calcium 8.5 Micro: Microbiology 01/02/23 23:00 Urine, Clean Catch Legionella Antigen - Final 01/02/23 23:00 Urine, Clean Catch Streptococcus pneumoniae Antigen (M - Lorraine l Radiography Diagnostic Testing: Radiology Impression Echocardiogram 01/02/23 22:01 Interpretation Summary Normal LV size. Left ventricular systolic function is normal. The estimated ejection fraction is 65 %. Mildly dilated aortic root. Mild (1+) aortic valve insufficiency. Pulmonary artery systolic pressure is 26 mmHg. Ordering Physician: Jules Parkinson Performed By: Luc Flores RCS Physical Exam Const alert and oriented x3 Constitutional Narrative: Less cough noted during today's evaluation. Mild conversational dyspnea General Appearance: cooperative and well developed HEENT normocephalic, head/scalp atraumatic and moist oral mucous membranes HEENT Narrative: Airvo in place Eyes PERRL and EOMs intact bilaterally Neck full ROM and no lymphadenopathy Chest inspection of chest normal Resp Effort and Inspection: actively coughing non-productive; Negative for able to speak in complete sentences Auscultation: rales bilateral; Negative for rhonchi or wheezes Percussion: Negative for dullness Cardio regular rate, S1 normal heart sound, S2 normal heart sound, no murmurs, no rub and no gallops Rhythm: abnormal rhythm irregularly irregular GI normal to inspection, nondistended, normoactive bowel sounds no CVA tenderness Extremity no clubbing, cyanosis or edema Skin no rashes or lesions noted Neuro oriented x3, CN's II-XII intact bilaterally, moves all extremities and no focal motor deficits Psych cooperative Mood & Affect: anxious Charges/Coding Visit Charges Inpatient E&M: 47113 Subs Hosp L3
[2023-01-04] MEDS: guaiFENesin 1,200 MG Tablet 1200 MG PO ×2 (08:21→21:19)
[2023-01-04] MEDS: Atorvastatin Calcium 10 MG Tablet 5 MG PO (08:21)
[2023-01-04] MEDS: Furosemide 40 MG/4 ML Vial IV ×2 (08:24→16:46)
[2023-01-04] MEDS: Multivitamins,Therapeutic Tablet 1 TABLET PO (08:24)
[2023-01-04] MEDS: Ezetimibe 10 MG Tablet PO (08:24)
[2023-01-04] MEDS: Topiramate 25 MG Tablet PO (08:24)
[2023-01-04] MEDS: Montelukast 10 MG Tablet PO (08:24)
[2023-01-04] MEDS: Pantoprazole Sodium 20 MG Tablet PO (08:24)
[2023-01-04] MEDS: APIXABAN 5 MG TABLET PO ×2 (08:24→21:19)
[2023-01-04 13:33] LABS: Vancomycin, Trough Level 12.1 ug/mL (5.0-15.0)
--- NOTE | 2023-01-04 13:44 | PCM.RX.CS ---
Consult Pharmacy has been consulted to manage selected antiobiotic: Vancomycin Type of Consult: Follow-up Prior Doses of Antibiotics Received/Current Regimen: Medications Vancomycin HCl () 500 mg in 100 mls @ 100 mls/hr IV Q12H TITI Last Admin: 01/04/23 12:42 Dose: 100 mls/hr Discontinued Medications Vancomycin HCl 1,250 mg/ (Sodium Chloride) 275 mls @ 167 mls/hr IV X1 ONE Stop: 01/03/23 02:08 Last Admin: 01/03/23 02:35 Dose: Infused Labs: Sodium 140 mmol/L (136-145) 01/04/23 03:41 Potassium 3.3 mmol/L (3.5-5.1) L 01/04/23 03:41 Chloride 105 mmol/L (98-107) 01/04/23 03:41 Carbon Dioxide 26.0 mmol/L (21.0-32.0) 01/04/23 03:41 Anion Gap 9 (5-15) 01/04/23 03:41 BUN 33 mg/dL (7-18) H 01/04/23 03:41 Creatinine 1.51 mg/dL (0.70-1.30) H 01/04/23 03:41 Est GFR (MDRD) Af Amer 58 mL/min (>60) L 01/04/23 03:41 Est GFR (MDRD) Non-Af 48 mL/min (>60) L 01/04/23 03:41 BUN/Creatinine Ratio 21.9 RATIO (10-20) H 01/04/23 03:41 Glucose 232 mg/dL (74-106) H 01/04/23 03:41 Vancomycin Trough 12.1 ug/mL (5.0-15.0) 01/04/23 12:30 Microbiology: Microbiology 01/02/23 23:00 Urine, Clean Catch Legionella Antigen - Final 01/02/23 23:00 Urine, Clean Catch Streptococcus pneumoniae Antigen (M - Final Weight used for dosin kg Estimated Creatinine Clearance: 39 Goal Trough: 15-20 mcg/mL Pharmacy Plan for Drug Dosing: Trough below goal range but not yet at steady-state levels and SCr has increased from admission. Would recommend to continue current dose and check trough again in 48 hours. Pharmacy Service will continue to monitor and adjust dosing as required. Follow-Up Labs: Trough Vancomycin - 01/06 @ 1230
[2023-01-04 16:18] LABS: M R Staph aureus DNA By PCR Negative (Negative); Probe Check PASS; Specimen Processing Control PASS
--- NOTE | 2023-01-04 18:11 | PN.HOSP_ITS ---
Reason for Visit Reason for Visit: Diagnoses Heart failure, unspecified (01/03/23) Interstitial pulmonary disease, unspecified (01/03/23) Acute and chronic respiratory failure with hypoxia (01/03/23) Hypoxemia (01/03/23) Subjective Subjective Patient was seen and examined today, he remains on high flow oxygen but appears comfortable at rest. Patient is alert and does not complain of any chest pain. Objective Data Objective Data Vital Signs: Vital Signs Temp Pulse Resp BP Pulse Ox O2 Del Method O2 Flow Rate 98.1 F 87 22 H 104/57 L 97 Airvo 50 01/04/23 15:00 01/04/23 17:45 01/04/23 17:45 01/04/23 17:00 01/04/23 17:45 01/04/23 17:00 01/04/23 17:00 FiO2 67 01/04/23 17:45 Oxygen Flow Rate (L/min) 50 Oxygen Delivery Method Airvo Weight: 80.4 kg Body Mass Index (BMI) 27.1 Intake & Output: Intake and Output for Last 24 Hours 01/02/23 01/03/23 01/04/23 23:59 23:59 23:59 Intake Total 8.5 / 58.5 1215 / 1215 450 / 450 Output Total 700 / 990 725 / 725 Balance 8.5 / -41.5 515 / 225 -275 / -275 Medical Nutrition Assessment Dietitian: Malnutrition Criteria Met Start: 01/04/23 13:37 Freq: Status: Active Protocol: Document 01/04/23 13:37 AG (Rec: 01/04/23 13:37 [id number]) Nutrition Malnutrition Evidence of Malnutrition Exists Yes Malnutrition (severe): Acute Illness/Injury Evidenced By Suboptimal Energy Intake ( Severe),Weight Loss (Severe) Clinical Problem Acute Disease or Injury Related Malnutrition Etiology severe, acute malnutrition related to inadequate energy intake w/ increased energy needs d/t resp. failure Signs/Symptoms as evidenced by estimated PO intake meeting <75% estimated energy needs > 7 days; unintentional 30.7#/15% wt loss x 2 months Status Active Problem Altered Nutrient-Related Laboratory Values Etiology - Signs/Symptoms - Status Inactive Problem Recommendation Dietitian Recommendations/Changes continue cardiac diet w/ fluid restriction as indicated; may need to consider liberalizing to regular/sodium restricted pending PO intake/resp. status . Will add magic cup w/ dinner for additional calories/ protein if consumed. Will consider additional ONS ( Ensure Plus High Protein) depending further evaluation of food/fluid intake. Lab / Micro Data Result Diagrams: 01/05/23 03:10 01/05/23 03:10 Labs: Laboratory Results - last 24 hr 01/04/23 03:41: WBC 17.9 H, RBC 4.12 L, Hgb 12.2 L, Hct 38.6 L, MCV 93.7, MCH 29.6, MCHC 31.6 L, RDW Std Deviation 50.9 H, RDW Coeff of Scotty 14.6, Plt Count 256, MPV 9.8, Immature Gran % (Auto) 0.900, Neut % (Auto) 91.9 H, Lymph % (Auto) 4.7 L, [place] % (Auto) 2.4, Eos % (Auto) 0.0, Baso % (Auto) 0.1, Absolute Neuts (auto) 16.5 H, Absolute Lymphs (auto) 0.85, Nucleated RBC % 0 01/04/23 03:41: Sodium 140, Potassium 3.3 L, Chloride 105, Carbon Dioxide 26.0, Anion Gap 9, BUN 33 H, Creatinine 1.51 H, Estim Creat Clear Calc 39.01, Est GFR (MDRD) Af Amer 58 L, Est GFR (MDRD) Non-Af 48 L, BUN/Creatinine Ratio 21.9 H, Glucose 232 H, Calcium 8.5 01/04/23 08:50: MRSA (PCR) Negative 01/04/23 12:30: Vancomycin Trough 12.1 Micro: Microbiology 01/02/23 23:00 Urine, Clean Catch Legionella Antigen - Final 01/02/23 23:00 Urine, Clean Catch Streptococcus pneumoniae Antigen (M - Final Physical Exam Narrative alert, oriented x3, no apparent distress and average body habitus General Appearance: cooperative, well kempt and well developed Orientation / Consciousness: awake, oriented to person, oriented to place and oriented to time HEENT normocephalic, head/scalp atraumatic and moist oral mucous membranes Eyes PERRL, EOMs intact bilaterally and conjunctivae normal Neck supple, no JVD, thyroid normal and no carotid bruits General: trachea midline Resp no retractions and no use of accessory muscles Resp Narrative: Breath sounds are decreased bilaterally Auscultation: Negative for rales, rhonchi or wheezes Cardio S1 normal heart sound, S2 normal heart sound, no murmurs, no rub and no gallops Cardio Narrative: Heart rate and rhythm is irregular GI normal to inspection, nondistended, normoactive bowel sounds, soft to palpation, non-tender and non-distended Extremity no clubbing, cyanosis or edema Skin no rashes or lesions noted General Skin Exam: no breakdown Neuro oriented x3, CN's II-XII intact bilaterally, moves all extremities, no focal motor deficits and no sensory deficits noted Sensorium / Orientation: awake, alert, oriented to person and oriented to place Speech: speech normal Psych affect normal Assessment & Plan Assessment/Plan (1) Congestive heart failure: (2) Acute and chronic respiratory failure with hypoxia: PLAN: Plan 1. Acute on chronic hypoxic respiratory failure-patient is currently on high flow oxygen, he will be monitored closely in the ICU, pulmonary medicine is participating in his care, no changes currently in any of his medications #2 acute diastolic congestive heart failure-continue IV Lasix, monitor pulse ox #3 chronic [id number] is currently on apixaban, he is not currently on any rate limiting medication, heart rate remains controlled at this time #4 bilateral pulmonary infiltrates-possible pneumonia, patient remains on IV antibiotics at this time Total clinical time spent by myself addressing the patient's medical issues, reviewing all the data, and collaborating with the patient's care team: 36 minutes Charges/Coding Visit Charges Inpatient E&M: 63045 Subs Hosp L2
[2023-01-05] VITALS (32 sets, daily range): BP systolic 77–123; BP diastolic 44–72; PULSE 30–92; RESP 24–42; TEMP 36.2–36.6; O2SAT 87–98
[2023-01-05] MEDS: Vancomycin IV 500 MG/100 ML BAG 100 MG IV (01:17)
--- NOTE | 2023-01-05 01:37 | RAD_ITS ---
EXAM: XR CHEST, 1 VIEW CLINICAL INDICATION: hypoxia hypoxia TECHNIQUE: Frontal view of the chest. This report was created using [employer] report generation technology. COMPARISON: Chest x-ray 04/22/2022 FINDINGS: LUNGS AND PLEURAL SPACES: There is infiltration in the left mid and lower lung holloway, consistent with lower lobe and left upper lobe pneumonia.. No pneumothorax. No effusion. HEART: Unremarkable. Cardiac silhouette not enlarged. MEDIASTINUM: Central airways and mediastinal contour are unremarkable. BONES/JOINTS: There are multilevel degenerative changes in the visualized spine. SOFT TISSUES: Unremarkable. UPPER ABDOMEN: There is chronic elevation left hemidiaphragm. RAD/Chest 1 View (Portable) IMPRESSION: Left pulmonary infiltrates. Electronically Signed: Wicho Arias MD at 3:07 EST Reading Location ID and State: [facility] / [place] , Service support ,
[2023-01-05 02:07] LABS: Anion Gap 7 (5-15); BUN 41 mg/dL (7-18); BUN/Creat Ratio 22.4 RATIO (10-20); Calcium,Total 7.7 mg/dL (8.5-10.1); Chloride 109 mmol/L (98-107); Creatinine, Serum 1.83 mg/dL (0.70-1.30); EST Glomerular Filtration Rate 38 mL/min (>60); Est Glom Filt Rate - Afr Amer 46 mL/min (>60); Estimated Creatinine Clearance 32.19 ml/min; Glucose 202 mg/dL (74-106); Potassium 3.5 mmol/L (3.5-5.1); Sodium Level 144 mmol/L (136-145)
[2023-01-05 05:12] LABS: Absolute Lymphocyte Count 0.83 X10^3/uL (0.83-4.51); Basophil# 0.01 X10^3/uL; Basophil% 0.1 % (0-1); Hematocrit 39.3 % (40-54); Hemoglobin 12.3 g/dL (13.0-16.5); Lymphocyte # 0.83 X10^3/ul (0.83-4.51); Lymphocyte % 5.4 % (19-41); Mean Corp Hgb Conc 31.3 g/dL (32-36); Mean Corpuscular Hgb 29.9 pg (27.0-32.0); Mean Corpuscular Volume 95.6 fL (80-94); Mean Platelet Vol. 10.2 fl (6.2-12.0); Monocyte# 0.45 X10^3/uL; Monocyte% 2.9 % (0-10); NRBC Flagged by Analyzer 0 % (0-5); Neutrophil # 14.01 X10^3/uL (2.7-7.7); Neutrophil % 90.5 % (47-70); Platelet Count 300 K/mm3 (150-450); RBC Distribution Width CV 14.6 % (11.6-14.6); RBC Distribution Width SD 51.4 fl (35.1-43.9); Red Blood Count 4.11 M/mm3 (4.6-6.2); White Blood Count 15.5 K/mm3 (4.4-11.0)
[2023-01-05 05:21] LABS: Anion Gap 9 (5-15); BUN 43 mg/dL (7-18); BUN/Creat Ratio 22.5 RATIO (10-20); Calcium,Total 7.9 mg/dL (8.5-10.1); Chloride 106 mmol/L (98-107); Creatinine, Serum 1.91 mg/dL (0.70-1.30); EST Glomerular Filtration Rate 36 mL/min (>60); Est Glom Filt Rate - Afr Amer 44 mL/min (>60); Estimated Creatinine Clearance 30.84 ml/min; Glucose 239 mg/dL (74-106); Potassium 3.7 mmol/L (3.5-5.1); Sodium Level 141 mmol/L (136-145)
--- NOTE | 2023-01-05 07:55 | PCM.PN.INT ---
Assessment & Plan Assessment/Plan (1) Acute and chronic respiratory failure with hypoxia: (2) Congestive heart failure: PLAN: Plan RECOMMENDATIONS: 1. Possibly repeat CT in the next 24 to 48 hours 2. Continue diuretics as tolerated 3. Anticipate completing 7 days of empiric antibiotics 4. Wean supplemental oxygen as tolerated 5. Hold on blottable study given left-sided findings 6. Await speech therapy evaluation 7. Transition to nasal cannula once Airvo is at 40% IMPRESSIONS: 1. Acute hypoxic respiratory failure Unclear exact etiology. Patient did have COVID-19 last month, so postinflammatory pulmonary fibrosis would be a concern. CT of the chest does show some groundglass opacities and may be consistent with an atypical pneumonia. Patient is not reporting any change in cough, but BNP is significantly elevated indicating possible CHF. Patient has not had a significant diuresis over the last 24 hours. Reasonable to continue with empiric antibiotics pending cultures and response to diuretics. Mediastinal lymphadenopathy may be secondary to previous COVID. Steroids are reasonable for now. Lower PASP is odd given the amount of supplemental oxygen patient is requiring. Chest x-ray overnight shows significant left-sided infiltrates with improvement in the right. We will continue with diuresis as tolerated. Unclear if infiltrates on the left are dense enough to lead to shunt physiology. 2. A-fib with RVR Patient with a history of chronic A-fib on anticoagulation. Heart rate appears to be better controlled at this time. We will continue with baseline medications. Patient's echocardiogram was not significantly changed. Patient does have some AI, but pulmonary artery pressures are lower than expected given the amount of supplemental oxygen required. EF is preserved. 3. Hypertension/advanced age/concern for aspiration/environmental allergies Complicates care, management, recovery and prognosis. Okay to continue with baseline medications for hypertension. Patient could be continued on baseline allergy medications. Will await a speech therapy evaluation given outpatient concerns. Subjective Subjective Patient did okay overnight. Patient was as low as 60% FiO2 on Airvo. Blood pressures were marginal overnight, so patient did have a chest x-ray showing significant left-sided infiltrates, but appears to have improved right-sided aeration. Patient continues to have paroxysmal type coughing with bradycardia and desaturation. Objective Data Objective Data Vital Signs: Vital Signs Temp Pulse Resp BP Pulse Ox O2 Del Method O2 Flow Rate 36.6 C 85 42 H 103/58 L 92 Airvo 50 01/05/23 05:00 01/05/23 07:27 01/05/23 07:27 01/05/23 07:00 01/05/23 07:27 01/05/23 07:00 01/05/23 07:00 FiO2 67 01/05/23 07:27 Oxygen Flow Rate (L/min) 50 Oxygen Delivery Method Airvo Weight: 82.9 kg Body Mass Index (BMI) 27.1 Intake & Output: Intake and Output for Last 24 Hours 01/03/23 01/04/23 01/05/23 23:59 23:59 23:59 Intake Total 1215 / 1215 741.5 / 741.5 356.75 / 356.75 Output Total 700 / 990 725 / 1025 1100 / 1100 Balance 515 / 225 16.5 / -283.5 -743.25 / -743.25 Medical Nutrition Assessment Dietitian: Malnutrition Criteria Met Start: 01/04/23 13:37 Freq: Status: Active Protocol: Document 01/04/23 13:37 (Rec: 01/04/23 13:37 [id number]) Nutrition Malnutrition Evidence of Malnutrition Exists Yes Malnutrition (severe): Acute Illness/Injury Evidenced By Suboptimal Energy Intake ( Severe),Weight Loss (Severe) Clinical Problem Acute Disease or Injury Related Malnutrition Etiology severe, acute malnutrition related to inadequate energy intake w/ increased energy needs d/t resp. failure Signs/Symptoms as evidenced by estimated PO intake meeting <75% estimated energy needs > 7 days; unintentional 30.7#/15% wt loss x 2 months Status Active Problem Altered Nutrient-Related Laboratory Values Etiology - Signs/Symptoms - Status Inactive Problem Recommendation Dietitian Recommendations/Changes continue cardiac diet w/ fluid restriction as indicated; may need to consider liberalizing to regular/sodium restricted pending PO intake/resp. status . Will add magic cup w/ dinner for additional calories/ protein if consumed. Will consider additional ONS ( Ensure Plus High Protein) depending further evaluation of food/fluid intake. Lab / Micro Data Attestation: I reviewed the patient's lab results. Result Diagrams: 01/05/23 03:10 01/05/23 03:10 Labs: Laboratory Results - last 24 hr 01/04/23 08:50: MRSA (PCR) Negative 01/04/23 12:30: Vancomycin Trough 12.1 01/05/23 01:35: Sodium 144, Potassium 3.5, Chloride 109 H, Carbon Dioxide 28.0, Anion Gap 7, BUN 41 H, Creatinine 1.83 H, Estim Creat Clear Calc 32.19, Est GFR (MDRD) Af Amer 46 L, Est GFR (MDRD) Non-Af 38 L, BUN/Creatinine Ratio 22.4 H, Glucose 202 H, Calcium 7.7 L 01/05/23 03:10: WBC 15.5 H, RBC 4.11 L, Hgb 12.3 L, Hct 39.3 L, MCV 95.6 H, MCH 29.9, MCHC 31.3 L, RDW Std Deviation 51.4 H, RDW Coeff of Scotty 14.6, Plt Count 300, MPV 10.2, Immature Gran % (Auto) 1.100 H, Neut % (Auto) 90.5 H, Lymph % (Auto) 5.4 L, [place] % (Auto) 2.9, Eos % (Auto) 0.0, Baso % (Auto) 0.1, Absolute Neuts (auto) 14.0 H, Absolute Lymphs (auto) 0.83, Nucleated RBC % 0 01/05/23 03:10: Sodium 141, Potassium 3.7, Chloride 106, Carbon Dioxide 26.0, Anion Gap 9, BUN 43 H, Creatinine 1.91 H, Estim Creat Clear Calc 30.84, Est GFR (MDRD) Af Amer 44 L, Est GFR (MDRD) Non-Af 36 L, BUN/Creatinine Ratio 22.5 H, Glucose 239 H, Calcium 7.9 L Micro: Microbiology 01/02/23 23:00 Urine, Clean Catch Legionella Antigen - Final 01/02/23 23:00 Urine, Clean Catch Streptococcus pneumoniae Antigen (M - Final Radiography Diagnostic Testing: Radiology Impression Chest X-Ray 01/05/23 01:37 IMPRESSION: Left pulmonary infiltrates. Electronically Signed: Wicho Arias MD at 3:07 EST Reading Location ID and State: [facility] / [place] , Service support , Physical Exam Const alert and oriented x3 Constitutional Narrative: Paroxysmal cough noted during today's evaluation. Mild conversational dyspnea General Appearance: cooperative and well developed HEENT normocephalic, head/scalp atraumatic and moist oral mucous membranes Eyes PERRL and EOMs intact bilaterally Neck full ROM and no lymphadenopathy Chest inspection of chest normal Resp Effort and Inspection: actively coughing non-productive; Negative for able to speak in complete sentences Auscultation: rales left; Negative for rhonchi or wheezes Percussion: Negative for dullness Cardio regular rate, S1 normal heart sound, S2 normal heart sound, no murmurs, no rub and no gallops Rhythm: abnormal rhythm irregularly irregular GI normal to inspection, nondistended, normoactive bowel sounds no CVA tenderness Extremity no clubbing, cyanosis or edema Skin no rashes or lesions noted Neuro oriented x3, CN's II-XII intact bilaterally, moves all extremities and no focal motor deficits Psych cooperative Mood & Affect: anxious Charges/Coding Visit Charges Inpatient E&M: 09574 Subs Hosp L3
[2023-01-05] MEDS: Ezetimibe 10 MG Tablet PO (08:11)
[2023-01-05] MEDS: Furosemide 40 MG/4 ML Vial IV ×2 (08:11→17:52)
[2023-01-05] MEDS: Pantoprazole Sodium 20 MG Tablet PO (08:11)
[2023-01-05] MEDS: APIXABAN 5 MG TABLET PO ×2 (08:11→21:19)
[2023-01-05] MEDS: guaiFENesin 1,200 MG Tablet 1200 MG PO ×2 (08:11→21:19)
[2023-01-05] MEDS: Topiramate 25 MG Tablet PO (08:11)
[2023-01-05] MEDS: Multivitamins,Therapeutic Tablet 1 TABLET PO (08:11)
[2023-01-05] MEDS: Montelukast 10 MG Tablet PO (08:11)
[2023-01-05] MEDS: Atorvastatin Calcium 10 MG Tablet 5 MG PO (08:11)
--- NOTE | 2023-01-05 10:02 | PCM.PN.HOSP ---
Reason for Visit Reason for Visit: Diagnoses Heart failure, unspecified (01/03/23) Interstitial pulmonary disease, unspecified (01/03/23) Acute and chronic respiratory failure with hypoxia (01/03/23) Hypoxemia (01/03/23) Subjective Subjective Patient was seen and examined today, he does not appear in any distress at rest, he still remains on Airvo this morning, I talked briefly with pulmonary medicine about his care and they feel he should remain in the unit for close observation at this time. Objective Data Objective Data Vital Signs: Vital Signs Temp Pulse Resp BP Pulse Ox O2 Del Method O2 Flow Rate 97.1 F L 92 26 H 120/50 L 98 Airvo 50 01/05/23 08:00 01/05/23 09:44 01/05/23 09:44 01/05/23 08:00 01/05/23 09:44 01/05/23 08:00 01/05/23 08:00 FiO2 60 01/05/23 09:44 Oxygen Flow Rate (L/min) 50 Oxygen Delivery Method Airvo Weight: 82.9 kg Body Mass Index (BMI) 27.1 Intake & Output: Intake and Output for Last 24 Hours 01/03/23 01/04/23 01/05/23 23:59 23:59 23:59 Intake Total 1215 / 1215 741.5 / 741.5 406.75 / 406.75 Output Total 700 / 990 725 / 1025 1100 / 1100 Balance 515 / 225 16.5 / -283.5 -693.25 / -693.25 Medical Nutrition Assessment Dietitian: Malnutrition Criteria Met Start: 01/04/23 13:37 Freq: Status: Active Protocol: Document 01/04/23 13:37 (Rec: 01/04/23 13:37 [id number]) Nutrition Malnutrition Evidence of Malnutrition Exists Yes Malnutrition (severe): Acute Illness/Injury Evidenced By Suboptimal Energy Intake ( Severe),Weight Loss (Severe) Clinical Problem Acute Disease or Injury Related Malnutrition Etiology severe, acute malnutrition related to inadequate energy intake w/ increased energy needs d/t resp. failure Signs/Symptoms as evidenced by estimated PO intake meeting <75% estimated energy needs > 7 days; unintentional 30.7#/15% wt loss x 2 months Status Active Problem Altered Nutrient-Related Laboratory Values Etiology - Signs/Symptoms - Status Inactive Problem Recommendation Dietitian Recommendations/Changes continue cardiac diet w/ fluid restriction as indicated; may need to consider liberalizing to regular/sodium restricted pending PO intake/resp. status . Will add magic cup w/ dinner for additional calories/ protein if consumed. Will consider additional ONS ( Ensure Plus High Protein) depending further evaluation of food/fluid intake. Lab / Micro Data Result Diagrams: 01/05/23 03:10 01/05/23 03:10 Labs: Laboratory Results - last 24 hr 01/04/23 08:50: MRSA (PCR) Negative 01/04/23 12:30: Vancomycin Trough 12.1 01/05/23 01:35: Sodium 144, Potassium 3.5, Chloride 109 H, Carbon Dioxide 28.0, Anion Gap 7, BUN 41 H, Creatinine 1.83 H, Estim Creat Clear Calc 32.19, Est GFR (MDRD) Af Amer 46 L, Est GFR (MDRD) Non-Af 38 L, BUN/Creatinine Ratio 22.4 H, Glucose 202 H, Calcium 7.7 L 01/05/23 03:10: WBC 15.5 H, RBC 4.11 L, Hgb 12.3 L, Hct 39.3 L, MCV 95.6 H, MCH 29.9, MCHC 31.3 L, RDW Std Deviation 51.4 H, RDW Coeff of Scotty 14.6, Plt Count 300, MPV 10.2, Immature Gran % (Auto) 1.100 H, Neut % (Auto) 90.5 H, Lymph % (Auto) 5.4 L, [place] % (Auto) 2.9, Eos % (Auto) 0.0, Baso % (Auto) 0.1, Absolute Neuts (auto) 14.0 H, Absolute Lymphs (auto) 0.83, Nucleated RBC % 0 01/05/23 03:10: Sodium 141, Potassium 3.7, Chloride 106, Carbon Dioxide 26.0, Anion Gap 9, BUN 43 H, Creatinine 1.91 H, Estim Creat Clear Calc 30.84, Est GFR (MDRD) Af Amer 44 L, Est GFR (MDRD) Non-Af 36 L, BUN/Creatinine Ratio 22.5 H, Glucose 239 H, Calcium 7.9 L Micro: Microbiology 01/02/23 23:00 Urine, Clean Catch Legionella Antigen - Final 01/02/23 23:00 Urine, Clean Catch Streptococcus pneumoniae Antigen (M - Final Radiography Diagnostic Testing: Radiology Impression Chest X-Ray 01/05/23 01:37 IMPRESSION: Left pulmonary infiltrates. Electronically Signed: Wicho Arias MD at 3:07 EST Reading Location ID and State: [facility] / [place] , Service support , Physical Exam Narrative alert, oriented x3, no apparent distress and average body habitus General Appearance: cooperative, well kempt and well developed Orientation / Consciousness: awake, oriented to person, oriented to place and oriented to time HEENT normocephalic, head/scalp atraumatic and moist oral mucous membranes Eyes PERRL, EOMs intact bilaterally and conjunctivae normal Neck supple, no JVD, thyroid normal and no carotid bruits General: trachea midline Resp no retractions and no use of accessory muscles Resp Narrative: Breath sounds are decreased bilaterally Auscultation: Negative for rales, rhonchi or wheezes Cardio S1 normal heart sound, S2 normal heart sound, no murmurs, no rub and no gallops Cardio Narrative: Heart rate and rhythm is irregular GI normal to inspection, nondistended, normoactive bowel sounds, soft to palpation, non-tender and non-distended Extremity no clubbing, cyanosis or edema Skin no rashes or lesions noted General Skin Exam: no breakdown Neuro oriented x3, CN's II-XII intact bilaterally, moves all extremities, no focal motor deficits and no sensory deficits noted Sensorium / Orientation: awake, alert, oriented to person and oriented to place Speech: speech normal Psych affect normal Assessment & Plan Assessment/Plan (1) Congestive heart failure: (2) Acute and chronic respiratory failure with hypoxia: PLAN: Plan 1. Acute on chronic hypoxic respiratory failure-patient is currently on high flow oxygen, he will be monitored closely in the ICU, pulmonary medicine is participating in his care, no changes currently in any of his medications #2 acute diastolic congestive heart failure-continue IV Lasix, monitor pulse ox #3 chronic [id number] is currently on apixaban, he is not currently on any rate limiting medication, heart rate remains controlled at this time #4 bilateral pulmonary infiltrates-possible pneumonia, patient remains on IV antibiotics at this time, patient's white blood cell count today was 15.5 Total clinical time spent by myself addressing the patient's medical issues, reviewing all the data, and collaborating with the patient's care team: 35 minutes Charges/Coding Visit Charges Inpatient E&M: 57336 Subs Hosp L2
[2023-01-06] VITALS (30 sets, daily range): BP systolic 90–130; BP diastolic 51–87; PULSE 58–102; RESP 19–37; TEMP 36–36.7; O2SAT 90–99
[2023-01-06 03:48] LABS: Absolute Lymphocyte Count 0.71 X10^3/uL (0.83-4.51); Absolute Neutrophil Count 10.5 X10^3/uL (2.0-7.7); Basophil# 0.02 X10^3/uL; Basophil% 0.2 % (0-1); Hematocrit 38.2 % (40-54); Hemoglobin 12.2 g/dL (13.0-16.5); Lymphocyte # 0.71 X10^3/ul (0.83-4.51); Lymphocyte % 6.1 % (19-41); Mean Corp Hgb Conc 31.9 g/dL (32-36); Mean Corpuscular Hgb 30.3 pg (27.0-32.0); Mean Corpuscular Volume 94.8 fL (80-94); Mean Platelet Vol. 10.1 fl (6.2-12.0); Monocyte# 0.37 X10^3/uL; Monocyte% 3.2 % (0-10); NRBC Flagged by Analyzer 0 % (0-5); Neutrophil # 10.49 X10^3/uL (2.7-7.7); Neutrophil % 89.6 % (47-70); Platelet Count 285 K/mm3 (150-450); RBC Distribution Width CV 14.5 % (11.6-14.6); RBC Distribution Width SD 50.4 fl (35.1-43.9); Red Blood Count 4.03 M/mm3 (4.6-6.2); White Blood Count 11.7 K/mm3 (4.4-11.0)
[2023-01-06 04:12] LABS: Anion Gap 6 (5-15); BUN 45 mg/dL (7-18); BUN/Creat Ratio 31.5 RATIO (10-20); Chloride 105 mmol/L (98-107); Creatinine, Serum 1.43 mg/dL (0.70-1.30); EST Glomerular Filtration Rate 51 mL/min (>60); Est Glom Filt Rate - Afr Amer 62 mL/min (>60); Estimated Creatinine Clearance 41.19 ml/min; Glucose 213 mg/dL (74-106); Potassium 3.7 mmol/L (3.5-5.1); Sodium Level 142 mmol/L (136-145)
--- NOTE | 2023-01-06 06:56 | PN.CC_ITS ---
Assessment & Plan Assessment/Plan (1) Acute and chronic respiratory failure with hypoxia: (2) Congestive heart failure: PLAN: Plan RECOMMENDATIONS: 1. Possibly repeat CT in the next 24 to 48 hours 2. Continue diuretics as tolerated 3. Anticipate completing 7 days of empiric antibiotics 4. Wean supplemental oxygen as tolerated 5. Electrolyte supplementation as necessary 6. Await speech therapy evaluation 7. Transition to nasal cannula once Airvo is at 40% IMPRESSIONS: 1. Acute hypoxic respiratory failure Unclear exact etiology. Patient did have COVID-19 last month, so postinflammatory pulmonary fibrosis would be a concern. CT of the chest does show some groundglass opacities and may be consistent with an atypical pneumonia. Patient is not reporting any change in cough, but BNP is significantly elevated indicating possible CHF. Patient has had a significant diuresis over the last 24 hours with improvement in saturation. Reasonable to continue with empiric antibiotics for total of 7 days. Mediastinal lymphadenopathy may be secondary to previous COVID. Steroids are reasonable for now, but will wean. Lower PASP is odd given the amount of supplemental oxygen patient is requiring. Chest x-ray overnight shows significant left-sided infiltrates with improvement in the right. We will continue with diuresis as tolerated. Unclear if infiltrates on the left are dense enough to lead to shunt physiology. 2. A-fib with RVR Patient with a history of chronic A-fib on anticoagulation. Heart rate appears to be well controlled at this time. We will continue with baseline medications. Patient's echocardiogram was not significantly changed. Patient does have some AI, but pulmonary artery pressures are lower than expected given the amount of supplemental oxygen required. EF is preserved. 3. Hypertension/advanced age/concern for aspiration/environmental allergies Complicates care, management, recovery and prognosis. Okay to continue with baseline medications for hypertension. Patient could be continued on baseline allergy medications. Will await a speech therapy evaluation given outpatient concerns. Subjective Subjective Patient did well overnight. Patient did sleep in the chair overnight secondary to comfort. Patient is still having paroxysmal coughing, but feels that it is less frequent. Patient has had polyuria over the last 24 hours, but is not reporting any dysuria. Objective Data Objective Data Vital Signs: Vital Signs Temp Pulse Resp BP Pulse Ox O2 Del Method O2 Flow Rate 36.7 C 76 22 H 107/56 L 94 Airvo 50 01/06/23 04:00 01/06/23 06:00 01/06/23 06:00 01/06/23 06:00 01/06/23 06:00 01/06/23 06:00 01/06/23 05:00 FiO2 65 01/06/23 05:00 Oxygen Flow Rate (L/min) 50 Oxygen Delivery Method Airvo Weight: 82.5 kg Body Mass Index (BMI) 27.1 Intake & Output: Intake and Output for Last 24 Hours 01/04/23 01/05/23 01/06/23 23:59 23:59 23:59 Intake Total 741.5 / 741.5 1306.75 / 1306.75 200 / 200 Output Total 725 / 1025 2525 / 2525 300 / 300 Balance 16.5 / -283.5 -1218.25 / -1218.25 -100 / -100 Medical Nutrition Assessment Dietitian: Malnutrition Criteria Met Start: 01/04/23 13:37 Freq: Status: Active Protocol: Document 01/04/23 13:37 AG (Rec: 01/04/23 13:37 [id number]) Nutrition Malnutrition Evidence of Malnutrition Exists Yes Malnutrition (severe): Acute Illness/Injury Evidenced By Suboptimal Energy Intake ( Severe),Weight Loss (Severe) Clinical Problem Acute Disease or Injury Related Malnutrition Etiology severe, acute malnutrition related to inadequate energy intake w/ increased energy needs d/t resp. failure Signs/Symptoms as evidenced by estimated PO intake meeting <75% estimated energy needs > 7 days; unintentional 30.7#/15% wt loss x 2 months Status Active Problem Altered Nutrient-Related Laboratory Values Etiology - Signs/Symptoms - Status Inactive Problem Recommendation Dietitian Recommendations/Changes continue cardiac diet w/ fluid restriction as indicated; may need to consider liberalizing to regular/sodium restricted pending PO intake/resp. status . Will add magic cup w/ dinner for additional calories/ protein if consumed. Will consider additional ONS ( Ensure Plus High Protein) depending further evaluation of food/fluid intake. Lab / Micro Data Attestation: I reviewed the patient's lab results. Result Diagrams: 01/06/23 03:40 01/06/23 03:40 Labs: Laboratory Results - last 24 hr 01/06/23 03:40: WBC 11.7 H, RBC 4.03 L, Hgb 12.2 L, Hct 38.2 L, MCV 94.8 H, MCH 30.3, MCHC 31.9 L, RDW Std Deviation 50.4 H, RDW Coeff of Scotty 14.5, Plt Count 285, MPV 10.1, Immature Gran % (Auto) 0.900, Neut % (Auto) 89.6 H, Lymph % (Auto) 6.1 L, [place] % (Auto) 3.2, Eos % (Auto) 0.0, Baso % (Auto) 0.2, Absolute Neuts (auto) 10.5 H, Absolute Lymphs (auto) 0.71 L, Nucleated RBC % 0 01/06/23 03:40: Sodium 142, Potassium 3.7, Chloride 105, Carbon Dioxide 31.0, Anion Gap 6, BUN 45 H, Creatinine 1.43 H, Estim Creat Clear Calc 41.19, Est GFR (MDRD) Af Amer 62, Est GFR (MDRD) Non-Af 51 L, BUN/Creatinine Ratio 31.5 H, Glucose 213 H, Calcium 8.0 L Micro: Microbiology 01/02/23 23:00 Urine, Clean Catch Legionella Antigen - Final 01/02/23 23:00 Urine, Clean Catch Streptococcus pneumoniae Antigen (M - Final Physical Exam Const alert and oriented x3 Constitutional Narrative: Paroxysmal cough not noted during today's evaluation. No conversational dyspnea General Appearance: cooperative and well developed HEENT normocephalic, head/scalp atraumatic and moist oral mucous membranes Eyes PERRL and EOMs intact bilaterally Neck full ROM and no lymphadenopathy Chest inspection of chest normal Resp Effort and Inspection: Negative for able to speak in complete sentences or actively coughing Auscultation: rales left; Negative for rhonchi or wheezes Percussion: Negative for dullness Cardio regular rate, S1 normal heart sound, S2 normal heart sound, no murmurs, no rub and no gallops Rhythm: abnormal rhythm irregularly irregular GI normal to inspection, nondistended, normoactive bowel sounds no CVA tenderness Extremity no clubbing, cyanosis or edema Skin no rashes or lesions noted Neuro oriented x3, CN's II-XII intact bilaterally, moves all extremities and no focal motor deficits Psych cooperative and affect normal Charges/Coding Visit Charges Inpatient E&M: 08694 Subs Hosp L3
[2023-01-06] MEDS: Montelukast 10 MG Tablet PO (07:47)
[2023-01-06] MEDS: Atorvastatin Calcium 10 MG Tablet 5 MG PO (07:47)
[2023-01-06] MEDS: guaiFENesin 1,200 MG Tablet 1200 MG PO ×2 (07:47→21:07)
[2023-01-06] MEDS: Ezetimibe 10 MG Tablet PO (07:47)
[2023-01-06] MEDS: Multivitamins,Therapeutic Tablet 1 TABLET PO (07:48)
[2023-01-06] MEDS: Furosemide 40 MG/4 ML Vial IV ×2 (07:48→17:00)
[2023-01-06] MEDS: Pantoprazole Sodium 20 MG Tablet PO (07:48)
[2023-01-06] MEDS: Topiramate 25 MG Tablet PO (07:48)
[2023-01-06] MEDS: 0.9% Saline Lock 10 ML Syringe IV ×2 (07:48→17:00)
[2023-01-06] MEDS: APIXABAN 5 MG TABLET PO ×2 (07:48→21:07)
--- NOTE | 2023-01-06 17:24 | CPS ---
pt has severe coughing episodes when using IS and PEP
--- NOTE | 2023-01-06 18:16 | PCM.PN.HOSP ---
Reason for Visit Reason for Visit: Diagnoses Heart failure, unspecified (01/03/23) Interstitial pulmonary disease, unspecified (01/03/23) Acute and chronic respiratory failure with hypoxia (01/03/23) Hypoxemia (01/03/23) Subjective Subjective Patient was seen and examined today, he remains on Airvo at this time, he is comfortable at rest, he has no complaints of any chest discomfort. Patient remains on IV Lasix at this time along with IV antibiotic coverage. Objective Data Objective Data Vital Signs: Vital Signs Temp Pulse Resp BP Pulse Ox O2 Del Method O2 Flow Rate 97.0 F L 82 37 H 130/79 H 96 Airvo 50 01/06/23 18:00 01/06/23 18:00 01/06/23 18:00 01/06/23 18:00 01/06/23 18:00 01/06/23 18:00 01/06/23 18:00 FiO2 50 01/06/23 18:00 Oxygen Flow Rate (L/min) 50 Oxygen Delivery Method Airvo Weight: 82.5 kg Body Mass Index (BMI) 27.1 Intake & Output: Intake and Output for Last 24 Hours 01/04/23 01/05/23 01/06/23 23:59 23:59 23:59 Intake Total 741.5 / 741.5 1306.75 / 1306.75 620.5 / 620.5 Output Total 725 / 1025 2525 / 2525 1100 / 1100 Balance 16.5 / -283.5 -1218.25 / -1218.25 -479.5 / -479.5 Medical Nutrition Assessment Dietitian: Malnutrition Criteria Met Start: 01/04/23 13:37 Freq: Status: Active Protocol: Document 01/06/23 09:55 AG (Rec: 01/06/23 09:55 AG [id number]) Nutrition Malnutrition Evidence of Malnutrition Exists Yes Malnutrition (severe): Acute Illness/Injury Evidenced By Suboptimal Energy Intake ( Severe),Weight Loss (Severe) Clinical Problem Acute Disease or Injury Related Malnutrition Etiology severe, acute malnutrition related to inadequate energy intake w/ increased energy needs d/t resp. failure Signs/Symptoms as evidenced by estimated PO intake meeting <75% estimated energy needs > 7 days; unintentional 30.7#/15% wt loss x 2 months Status Active Problem Altered Nutrient-Related Laboratory Values Etiology - Signs/Symptoms - Status Inactive Problem Recommendation Dietitian Recommendations/Changes continue cardiac diet w/ fluid restriction as indicated; may need to consider liberalizing to regular/sodium restricted pending PO intake/resp. status . Will provide vanilla magic cup w/ lunch for additional calories/protein if consumed. Lab / Micro Data Result Diagrams: 01/07/23 05:10 01/07/23 05:10 Labs: Laboratory Results - last 24 hr 01/06/23 03:40: WBC 11.7 H, RBC 4.03 L, Hgb 12.2 L, Hct 38.2 L, MCV 94.8 H, MCH 30.3, MCHC 31.9 L, RDW Std Deviation 50.4 H, RDW Coeff of Scotty 14.5, Plt Count 285, MPV 10.1, Immature Gran % (Auto) 0.900, Neut % (Auto) 89.6 H, Lymph % (Auto) 6.1 L, [place] % (Auto) 3.2, Eos % (Auto) 0.0, Baso % (Auto) 0.2, Absolute Neuts (auto) 10.5 H, Absolute Lymphs (auto) 0.71 L, Nucleated RBC % 0 01/06/23 03:40: Sodium 142, Potassium 3.7, Chloride 105, Carbon Dioxide 31.0, Anion Gap 6, BUN 45 H, Creatinine 1.43 H, Estim Creat Clear Calc 41.19, Est GFR (MDRD) Af Amer 62, Est GFR (MDRD) Non-Af 51 L, BUN/Creatinine Ratio 31.5 H, Glucose 213 H, Calcium 8.0 L Micro: Microbiology 01/02/23 23:00 Urine, Clean Catch Legionella Antigen - Final 01/02/23 23:00 Urine, Clean Catch Streptococcus pneumoniae Antigen (M - Final Physical Exam Narrative alert, oriented x3, no apparent distress and average body habitus General Appearance: cooperative, well kempt and well developed Orientation / Consciousness: awake, oriented to person, oriented to place and oriented to time HEENT normocephalic, head/scalp atraumatic and moist oral mucous membranes Eyes PERRL, EOMs intact bilaterally and conjunctivae normal Neck supple, no JVD, thyroid normal and no carotid bruits General: trachea midline Resp no retractions and no use of accessory muscles Resp Narrative: Breath sounds are decreased bilaterally Auscultation: Negative for rales, rhonchi or wheezes Cardio S1 normal heart sound, S2 normal heart sound, no murmurs, no rub and no gallops Cardio Narrative: Heart rate and rhythm is irregular GI normal to inspection, nondistended, normoactive bowel sounds, soft to palpation, non-tender and non-distended Extremity no clubbing, cyanosis or edema Skin no rashes or lesions noted General Skin Exam: no breakdown Neuro oriented x3, CN's II-XII intact bilaterally, moves all extremities, no focal motor deficits and no sensory deficits noted Sensorium / Orientation: awake, alert, oriented to person and oriented to place Speech: speech normal Psych affect normal Assessment & Plan Assessment/Plan (1) Acute and chronic respiratory failure with hypoxia: (2) Congestive heart failure: PLAN: Plan 1. Acute on chronic hypoxic respiratory failure-patient is currently on high flow oxygen, he will be monitored closely in the ICU, pulmonary medicine is participating in his care, no changes currently in any of his medications #2 acute diastolic congestive heart failure-continue IV Lasix, monitor pulse ox #3 chronic [id number] is currently on apixaban, he is not currently on any rate limiting medication, heart rate remains controlled at this time #4 bilateral pulmonary infiltrates-possible pneumonia, patient remains on IV antibiotics at this time, patient's white blood cell count today was 11.7 #5 chronic kidney disease-stage IIIa-labs will be monitored, complicates care, medical course, recovery, and prognosis Total clinical time spent by myself addressing the patient's medical issues, reviewing all the data, and collaborating with the patient's care team: 35 minutes Charges/Coding Visit Charges Inpatient E&M: 73238 Subs Hosp L2
[2023-01-07] VITALS (16 sets, daily range): BP systolic 92–121; BP diastolic 50–89; PULSE 63–102; RESP 18–36; TEMP 36.2–36.8; O2SAT 90–98
[2023-01-07 05:20] LABS: Absolute Lymphocyte Count 0.81 X10^3/uL (0.83-4.51); Absolute Neutrophil Count 8.9 X10^3/uL (2.0-7.7); Basophil# 0.04 X10^3/uL; Basophil% 0.4 % (0-1); Eosinophil# 0.01 X10^3/uL; Eosinophils% 0.1 % (0-5); Hematocrit 40.2 % (40-54); Hemoglobin 12.7 g/dL (13.0-16.5); Lymphocyte # 0.81 X10^3/ul (0.83-4.51); Lymphocyte % 7.8 % (19-41); Mean Corp Hgb Conc 31.6 g/dL (32-36); Mean Platelet Vol. 10.2 fl (6.2-12.0); Monocyte# 0.39 X10^3/uL; Monocyte% 3.8 % (0-10); NRBC Flagged by Analyzer 0 % (0-5); Neutrophil # 8.92 X10^3/uL (2.7-7.7); Neutrophil % 85.9 % (47-70); Platelet Count 315 K/mm3 (150-450); RBC Distribution Width CV 14.6 % (11.6-14.6); Red Blood Count 4.23 M/mm3 (4.6-6.2); White Blood Count 10.4 K/mm3 (4.4-11.0)
[2023-01-07 05:37] LABS: Anion Gap 7 (5-15); BUN 42 mg/dL (7-18); BUN/Creat Ratio 30.2 RATIO (10-20); Calcium,Total 8.6 mg/dL (8.5-10.1); Chloride 104 mmol/L (98-107); Creatinine, Serum 1.39 mg/dL (0.70-1.30); EST Glomerular Filtration Rate 53 mL/min (>60); Est Glom Filt Rate - Afr Amer 64 mL/min (>60); Estimated Creatinine Clearance 42.37 ml/min; Glucose 224 mg/dL (74-106); Potassium 4.4 mmol/L (3.5-5.1); Sodium Level 142 mmol/L (136-145)
--- NOTE | 2023-01-07 06:49 | PCM.PN.INT ---
Assessment & Plan Assessment/Plan (1) Acute and chronic respiratory failure with hypoxia: (2) Congestive heart failure: PLAN: Plan RECOMMENDATIONS: 1. Check chest x-ray in a.m. 2. Continue diuretics as tolerated 3. Anticipate completing 7 days of empiric antibiotics 4. Wean supplemental oxygen as tolerated. Possibly transition to nasal cannula later today 5. Transition to prednisone therapy and wean over the next 14 days 6. Await speech therapy evaluation 7. Complete antibiotic course today. IMPRESSIONS: 1. Acute hypoxic respiratory failure Unclear exact etiology. Patient did have COVID-19 last month, so postinflammatory pulmonary fibrosis would be a concern. CT of the chest does show some groundglass opacities and may be consistent with an atypical pneumonia. Patient is not reporting any change in cough, but BNP is significantly elevated indicating possible CHF. Patient has had a significant diuresis over the last 24 hours with improvement in saturation. Reasonable to continue with empiric antibiotics for total of 5 days. This will require cessation of Zosyn tomorrow. Mediastinal lymphadenopathy may be secondary to previous COVID. Steroids are reasonable for now but will transition to prednisone and wean over the next 12 to 14 days. Lower PASP is odd given the amount of supplemental oxygen patient is requiring. Chest x-ray overnight shows significant left-sided infiltrates with improvement in the right. We will continue with diuresis as tolerated. Unclear if infiltrates on the left are dense enough to lead to shunt physiology. Recheck chest x-ray in a.m. 2. A-fib with RVR Well-controlled. Patient with a history of chronic A-fib on anticoagulation. Heart rate appears to be well controlled at this time. We will continue with baseline medications. Patient's echocardiogram was not significantly changed. Patient does have some AI, but pulmonary artery pressures are lower than expected given the amount of supplemental oxygen required. EF is preserved. 3. Hypertension/advanced age/concern for aspiration/environmental allergies Complicates care, management, recovery and prognosis. Okay to continue with baseline medications for hypertension. Patient could be continued on baseline allergy medications. Will await a speech therapy evaluation given outpatient concerns. Subjective Subjective Patient did well overnight. Patient states he has been having some loose bowel movements. Patient's oxygen status continues to improve, but he has not been at initiated on nasal cannula yet. Patient believes his paroxysms of coughing is easier to control. Patient is PCU status, but remains in the ICU secondary to bed availability. Objective Data Objective Data Vital Signs: Vital Signs Temp Pulse Resp BP Pulse Ox O2 Del Method O2 Flow Rate 36.6 C 82 20 H 110/63 93 Airvo 50 01/07/23 05:00 01/07/23 05:00 01/07/23 05:00 01/07/23 05:00 01/07/23 05:00 01/07/23 05:00 01/07/23 05:00 FiO2 45 01/07/23 05:00 Oxygen Flow Rate (L/min) 50 Oxygen Delivery Method Airvo Weight: 82.3 kg Body Mass Index (BMI) 27.1 Intake & Output: Intake and Output for Last 24 Hours 01/05/23 01/06/23 01/07/23 23:59 23:59 23:59 Intake Total 1306.75 / 1306.75 620.5 / 620.5 50 / 50 Output Total 2525 / 2525 1700 / 1700 Balance -1218.25 / -1218.25 -1079.5 / -1079.5 50 / 50 Medical Nutrition Assessment Dietitian: Malnutrition Criteria Met Start: 01/04/23 13:37 Freq: Status: Active Protocol: Document 01/06/23 09:55 AG (Rec: 01/06/23 09:55 AG [id number]) Nutrition Malnutrition Evidence of Malnutrition Exists Yes Malnutrition (severe): Acute Illness/Injury Evidenced By Suboptimal Energy Intake ( Severe),Weight Loss (Severe) Clinical Problem Acute Disease or Injury Related Malnutrition Etiology severe, acute malnutrition related to inadequate energy intake w/ increased energy needs d/t resp. failure Signs/Symptoms as evidenced by estimated PO intake meeting <75% estimated energy needs > 7 days; unintentional 30.7#/15% wt loss x 2 months Status Active Problem Altered Nutrient-Related Laboratory Values Etiology - Signs/Symptoms - Status Inactive Problem Recommendation Dietitian Recommendations/Changes continue cardiac diet w/ fluid restriction as indicated; may need to consider liberalizing to regular/sodium restricted pending PO intake/resp. status . Will provide vanilla magic cup w/ lunch for additional calories/protein if consumed. Lab / Micro Data Attestation: I reviewed the patient's lab results. Result Diagrams: 01/07/23 05:10 01/07/23 05:10 Labs: Laboratory Results - last 24 hr 01/07/23 05:10: WBC 10.4, RBC 4.23 L, Hgb 12.7 L, Hct 40.2, MCV 95.0 H, MCH 30.0, MCHC 31.6 L, RDW Std Deviation 51.0 H, RDW Coeff of Scotty 14.6, Plt Count 315, MPV 10.2, Immature Gran % (Auto) 2.000 H, Neut % (Auto) 85.9 H, Lymph % (Auto) 7.8 L, [place] % (Auto) 3.8, Eos % (Auto) 0.1, Baso % (Auto) 0.4, Absolute Neuts (auto) 8.9 H, Absolute Lymphs (auto) 0.81 L, Nucleated RBC % 0 01/07/23 05:10: Sodium 142, Potassium 4.4, Chloride 104, Carbon Dioxide 31.0, Anion Gap 7, BUN 42 H, Creatinine 1.39 H, Estim Creat Clear Calc 42.37, Est GFR (MDRD) Af Amer 64, Est GFR (MDRD) Non-Af 53 L, BUN/Creatinine Ratio 30.2 H, Glucose 224 H, Calcium 8.6 Micro: Microbiology 01/02/23 23:00 Urine, Clean Catch Legionella Antigen - Final 01/02/23 23:00 Urine, Clean Catch Streptococcus pneumoniae Antigen (M - Final Physical Exam Const alert and oriented x3 Constitutional Narrative: Paroxysmal cough not noted during today's evaluation. No conversational dyspnea. Patient resting comfortably in bedside chair. General Appearance: cooperative and well developed HEENT normocephalic, head/scalp atraumatic and moist oral mucous membranes Eyes PERRL and EOMs intact bilaterally Neck full ROM and no lymphadenopathy Chest inspection of chest normal Resp Effort and Inspection: Negative for able to speak in complete sentences or actively coughing Auscultation: rales left (Improving); Negative for rhonchi or wheezes Percussion: Negative for dullness Cardio regular rate, S1 normal heart sound, S2 normal heart sound, no murmurs, no rub and no gallops Rhythm: abnormal rhythm irregularly irregular GI normal to inspection, nondistended, normoactive bowel sounds no CVA tenderness Extremity no clubbing, cyanosis or edema Skin no rashes or lesions noted Neuro oriented x3, CN's II-XII intact bilaterally, moves all extremities and no focal motor deficits Psych cooperative and affect normal Mood & Affect: anxious Charges/Coding Visit Charges Inpatient E&M: 34027 Subs Hosp L2
--- NOTE | 2023-01-07 08:08 | CASEMGMT ---
Social Work As per initial manager of selection and assessment, pt has LW/POA and will bring in the documents as able, had indicated is POA. DAKOTA Holt
[2023-01-07] MEDS: predniSONE 20 MG Tablet 40 MG PO (08:37)
[2023-01-07] MEDS: Multivitamins,Therapeutic Tablet 1 TABLET PO (08:37)
[2023-01-07] MEDS: guaiFENesin 1,200 MG Tablet 1200 MG PO ×2 (09:59→22:55)
[2023-01-07] MEDS: Topiramate 25 MG Tablet PO (09:59)
[2023-01-07] MEDS: Atorvastatin Calcium 10 MG Tablet 5 MG PO (09:59)
[2023-01-07] MEDS: Ezetimibe 10 MG Tablet PO (09:59)
[2023-01-07] MEDS: Pantoprazole Sodium 20 MG Tablet PO (09:59)
[2023-01-07] MEDS: APIXABAN 5 MG TABLET PO ×2 (09:59→22:55)
[2023-01-07] MEDS: Montelukast 10 MG Tablet PO (09:59)
[2023-01-07] MEDS: Furosemide 40 MG/4 ML Vial IV ×2 (09:59→18:40)
[2023-01-07] MEDS: 0.9% Saline Lock 10 ML Syringe IV (18:40)
[2023-01-07] MEDS: Albuterol 2.5 MG/3 ML VIAL.NEB. INHALATION (21:28)
[2023-01-07] MEDS: Benzonatate 100 MG Capsule 200 MG PO (22:59)
[2023-01-08] VITALS (14 sets, daily range): BP systolic 88–118; BP diastolic 57–80; PULSE 68–90; RESP 19–30; TEMP 36.1–36.7; O2SAT 89–99
--- NOTE | 2023-01-08 05:20 | RAD_ITS ---
STUDY: X-RAY CHEST REASON FOR EXAM: Male, 77 years old. Follow-up of infiltrates. TECHNIQUE: Single frontal view of the chest. COMPARISON: January 05, 2023. FINDINGS: Stable low volume inspiration with marked diffuse interstitial pattern, left greater than right. Left pleural effusion unchanged. Stable cardiomegaly. Normal mediastinum and braulio. Normal visualized pulmonary arteries. Normal visualized aortic arch and descending thoracic aorta. Normal visualized thoracic spine. Normal visualized ribs, clavicles, and shoulders. There is no demonstrated abnormality of the visualized soft tissue structures of the upper abdomen. RAD/Chest 1 View (Portable) IMPRESSION: Stable chest with no acute superimposed finding. Electronically Signed: Marvin Vaughn, at 10:36 EST ,
[2023-01-08 06:52] LABS: Absolute Lymphocyte Count 1.49 X10^3/uL (0.83-4.51); Absolute Neutrophil Count 8.4 X10^3/uL (2.0-7.7); Basophil% 0.9 % (0-1); Eosinophils% 3.5 % (0-5); Hematocrit 41.3 % (40-54); Hemoglobin 13.1 g/dL (13.0-16.5); Lymphocyte # 1.49 X10^3/ul (0.83-4.51); Lymphocyte % 13.2 % (19-41); Mean Corp Hgb Conc 31.7 g/dL (32-36); Mean Corpuscular Volume 94.5 fL (80-94); Monocyte# 0.43 X10^3/uL; Monocyte% 3.8 % (0-10); NRBC Flagged by Analyzer 0 % (0-5); Neutrophil # 8.36 X10^3/uL (2.7-7.7); Neutrophil % 73.9 % (47-70); Platelet Count 336 K/mm3 (150-450); RBC Distribution Width CV 14.4 % (11.6-14.6); RBC Distribution Width SD 50.1 fl (35.1-43.9); Red Blood Count 4.37 M/mm3 (4.6-6.2); White Blood Count 11.3 K/mm3 (4.4-11.0)
--- NOTE | 2023-01-08 07:03 | PN.CC_ITS ---
Assessment & Plan Assessment/Plan (1) Acute and chronic respiratory failure with hypoxia: (2) Congestive heart failure: PLAN: Plan RECOMMENDATIONS: 1. Await C. difficile 2. Discontinued antibiotics. Monitor clinically 3. Continue diuretics as tolerated. Await morning labs 4. Wean supplemental oxygen as tolerated. Possibly transition to nasal cannula later today 5. Transition to prednisone therapy and wean over the next 14 days 6. Await speech therapy evaluation IMPRESSIONS: 1. Acute hypoxic respiratory failure Unclear exact etiology. Patient did have COVID-19 last month, so postinflammatory pulmonary fibrosis would be a concern. CT of the chest does show some groundglass opacities and may be consistent with an atypical pneumonia. Patient is not reporting any change in cough, but BNP is significan tly elevated indicating possible CHF. Patient has had a significant diuresis over the last 24 hours with improvement in saturation. Patient has completed a 5-day course of antibiotics. Mediastinal lymphadenopathy may be secondary to previous COVID. Steroids are reasonable for now but will transition to prednisone and wean over the next 12 to 14 days. Lower PASP is odd given the amount of supplemental oxygen patient is requiring. Chest x-ray overnight shows significant left-sided infiltrates with improvement in the right. We will continue with diuresis as tolerated. Unclear if infiltrates on the left are dense enough to lead to shunt physiology. Recheck chest x-ray in a.m. 2. A-fib with RVR Well-controlled. Patient with a history of chronic A-fib on anticoagulation. Heart rate appears to be well controlled at this time. We will continue with baseline medications. Patient's echocardiogram was not significantly changed. Patient does have some AI, but pulmonary artery pressures are lower than expected given the amount of supplemental oxygen re quired. EF is preserved. 3. Hypertension/advanced age/concern for aspiration/environmental allergies Complicates care, management, recovery and prognosis. Okay to continue with baseline medications for hypertension. Patient could be continued on baseline allergy medications. Will await a speech therapy evaluation given outpatient concerns. Clinical suspicion for diarrhea secondary to antibiotics. Patient is not having fever or leukocytosis to suggest C. difficile. Testing is currently pending. Subjective Subjective Patient states he feels crummy. Patient states he had several episodes of diarrhea yesterday, but none overnight while sleeping. Patient did remain on Airvo overnight, but is hoping to go to nasal cannula this morning. Objective Data Objective Data Chest x-ray reviewed and appears grossly unchanged compared to previous Vital Signs: Vital Signs Temp Pulse Resp BP Pulse Ox O2 Del Method O2 Flow Rate 36.7 C 69 19 H 108/67 89 Airvo 40 01/08/23 03:05 01/08/23 05:23 01/08/23 05:23 01/08/23 03:05 01/08/23 05:23 01/08/23 03:05 01/08/23 03:05 FiO2 50 01/08/23 05:23 Oxygen Flow Rate (L/min) 40 Oxygen Delivery Method Airvo Weight: 80.9 kg Body Mass Index (BMI) 27.1 Intake & Output: Intake and Output for Last 24 Hours 01/06/23 01/07/23 01/08/23 23:59 23:59 23:59 Intake Total 620.5 / 620.5 300 / 300 290 / 290 Output Total 1700 / 1700 700 / 700 650 / 650 Balance -1079.5 / -1079.5 -400 / -400 -360 / -360 Medical Nutrition Assessment Dietitian: Malnutrition Criteria Met Start: 01/04/23 13:37 Freq: Status: Active Protocol: Document 01/06/23 09:55 AG (Rec: 01/06/23 09:55 AG [id number]) Nutrition Malnutrition Evidence of Malnutrition Exists Yes Malnutrition (severe): Acute Illness/Injury Evidenced By Suboptimal Energy Intake ( Severe),Weight Loss (Severe) Clinical Problem Acute Disease or Injury Related Malnutrition Etiology severe, acute malnutrition related to inadequate energy intake w/ increased energy needs d/t resp. failure Signs/Symptoms as evidenced by estimated PO intake meeting <75% estimated energy needs > 7 days; unintentional 30.7#/15% wt loss x 2 months Status Active Problem Altered Nutrient-Related Laboratory Values Etiology - Signs/Symptoms - Status Inactive Problem Recommendation Dietitian Recommendations/Changes continue cardiac diet w/ fluid restriction as indicated; may need to consider liberalizing to regular/sodium restricted pending PO intake/resp. status . Will provide vanilla magic cup w/ lunch for additional calories/protein if consumed. Lab / Micro Data Attestation: I reviewed the patient's lab results. Result Diagrams: 01/08/23 06:30 01/07/23 05:10 Labs: Laboratory Results - last 24 hr 01/08/23 06:30: WBC 11.3 H, RBC 4.37 L, Hgb 13.1, Hct 41.3, MCV 94.5 H, MCH 30.0, MCHC 31.7 L, RDW Std Deviation 50.1 H, RDW Coeff of Scotty 14.4, Plt Count 336, MPV 10.0, Immature Gran % (Auto) 4.700 H, Neut % (Auto) 73.9 H, Lymph % (Auto) 13.2 L, [place] % (Auto) 3.8, Eos % (Auto) 3.5, Baso % (Auto) 0.9, Absolute Neuts (auto) 8.4 H, Absolute Lymphs (auto) 1.49, Nucleated RBC % 0 Micro: Microbiology 01/02/23 23:00 Urine, Clean Catch Legionella Antigen - Final 01/02/23 23:00 Urine, Clean Catch Streptococcus pneumoniae Antigen (M - F inal Physical Exam Const alert and oriented x3 Constitutional Narrative: Paroxysmal cough not noted during today's evaluation. No conversational dyspnea. Patient resting comfortably in bed. General Appearance: cooperative and well developed HEENT normocephalic, head/scalp atraumatic and moist oral mucous membranes Eyes PERRL and EOMs intact bilaterally Neck full ROM and no lymphadenopathy Chest inspection of chest normal Resp Effort and Inspection: Negative for able to speak in complete sentences or actively coughing Auscultation: rales left (Improving); Negative for rhonchi or wheezes Percussion: Negative for dullness Cardio regular rate, S1 normal heart sound, S2 normal heart sound, no murmurs, no rub and no gallops Rhythm: abnormal rhythm irregularly irregular GI normal to inspection, nondistended, normoactive bowel sounds no CVA tenderness Extremity no clubbing, cyanosis or edema Skin no rashes or lesions noted Neuro oriented x3, CN's II-XII intact bilaterally, moves all extremities and no focal motor deficits Psych cooperative and affect normal Mood & Affect: anxious Charges/Coding Visit Charges Inpatient E&M: 31770 Subs Hosp L2
[2023-01-08 07:05] LABS: Anion Gap 7 (5-15); BUN 40 mg/dL (7-18); BUN/Creat Ratio 28.8 RATIO (10-20); Chloride 102 mmol/L (98-107); Creatinine, Serum 1.39 mg/dL (0.70-1.30); EST Glomerular Filtration Rate 53 mL/min (>60); Est Glom Filt Rate - Afr Amer 64 mL/min (>60); Estimated Creatinine Clearance 42.37 ml/min; Glucose 161 mg/dL (74-106); Potassium 3.4 mmol/L (3.5-5.1); Sodium Level 142 mmol/L (136-145)
[2023-01-08] MEDS: predniSONE 20 MG Tablet 40 MG PO (08:26)
[2023-01-08] MEDS: Multivitamins,Therapeutic Tablet 1 TABLET PO (08:26)
[2023-01-08] MEDS: guaiFENesin 1,200 MG Tablet 1200 MG PO ×2 (08:26→21:19)
[2023-01-08] MEDS: APIXABAN 5 MG TABLET PO ×2 (08:26→21:19)
[2023-01-08] MEDS: Pantoprazole Sodium 20 MG Tablet PO (08:27)
[2023-01-08] MEDS: Montelukast 10 MG Tablet PO (08:27)
[2023-01-08] MEDS: Topiramate 25 MG Tablet PO (08:27)
[2023-01-08] MEDS: Atorvastatin Calcium 10 MG Tablet 5 MG PO (08:27)
[2023-01-08] MEDS: Ezetimibe 10 MG Tablet PO (08:28)
[2023-01-08] MEDS: Furosemide 40 MG/4 ML Vial IV ×2 (08:29→16:54)
[2023-01-08] MEDS: 0.9% Saline Lock 10 ML Syringe IV ×2 (08:29→16:54)
--- NOTE | 2023-01-08 08:43 | PCM.PN.HOSP ---
Reason for Visit Reason for Visit: Diagnoses Heart failure, unspecified (01/03/23) Interstitial pulmonary disease, unspecified (01/03/23) Acute and chronic respiratory failure with hypoxia (01/03/23) Hypoxemia (01/03/23) Subjective Subjective Patient was seen and examined today, he is currently on room air, I talked him briefly about discharge planning, he does not want to go to a fpc, he does have O2 set up at home but I feel that he is on too high of a flow to discharge the patient at this time. Objective Data Objective Data Vital Signs: Vital Signs Temp Pulse Resp BP Pulse Ox O2 Del Method O2 Flow Rate 97.0 F L 81 24 H 107/80 95 Nasal Cannula 6 01/08/23 08:00 01/08/23 08:00 01/08/23 08:00 01/08/23 08:00 01/08/23 08:00 01/08/23 08:00 01/08/23 08:00 FiO2 50 01/08/23 05:23 Oxygen Flow Rate (L/min) 6 Oxygen Delivery Method Nasal Cannula Weight: 80.9 kg Body Mass Index (BMI) 27.1 Intake & Output: Intake and Output for Last 24 Hours 01/06/23 01/07/23 01/08/23 23:59 23:59 23:59 Intake Total 620.5 / 620.5 300 / 300 290 / 290 Output Total 1700 / 1700 700 / 700 650 / 650 Balance -1079.5 / -1079.5 -400 / -400 -360 / -360 Medical Nutrition Assessment Dietitian: Malnutrition Criteria Met Start: 01/04/23 13:37 Freq: Status: Active Protocol: Document 01/06/23 09:55 AG (Rec: 01/06/23 09:55 [id number]) Nutrition Malnutrition Evidence of Malnutrition Exists Yes Malnutrition (severe): Acute Illness/Injury Evidenced By Suboptimal Energy Intake ( Severe),Weight Loss (Severe) Clinical Problem Acute Disease or Injury Related Malnutrition Etiology severe, acute malnutrition related to inadequate energy intake w/ increased energy needs d/t resp. failure Signs/Symptoms as evidenced by estimated PO intake meeting <75% estimated energy needs > 7 days; unintentional 30.7#/15% wt loss x 2 months Status Active Problem Altered Nutrient-Related Laboratory Values Etiology - Signs/Symptoms - Status Inactive Problem Recommendation Dietitian Recommendations/Changes continue cardiac diet w/ fluid restriction as indicated; may need to consider liberalizing to regular/sodium restricted pending PO intake/resp. status . Will provide vanilla magic cup w/ lunch for additional calories/protein if consumed. Lab / Micro Data Result Diagrams: 01/08/23 06:30 01/08/23 06:30 Labs: Laboratory Results - last 24 hr 01/08/23 06:30: WBC 11.3 H, RBC 4.37 L, Hgb 13.1, Hct 41.3, MCV 94.5 H, MCH 30.0, MCHC 31.7 L, RDW Std Deviation 50.1 H, RDW Coeff of Scotty 14.4, Plt Count 336, MPV 10.0, Immature Gran % (Auto) 4.700 H, Neut % (Auto) 73.9 H, Lymph % (Auto) 13.2 L, [place] % (Auto) 3.8, Eos % (Auto) 3.5, Baso % (Auto) 0.9, Absolute Neuts (auto) 8.4 H, Absolute Lymphs (auto) 1.49, Nucleated RBC % 0 01/08/23 06:30: Sodium 142, Potassium 3.4 L, Chloride 102, Carbon Dioxide 33.0 H, Anion Gap 7, BUN 40 H, Creatinine 1.39 H, Estim Creat Clear Calc 42.37, Est GFR (MDRD) Af Amer 64, Est GFR (MDRD) Non-Af 53 L, BUN/Creatinine Ratio 28.8 H, Glucose 161 H, Calcium 9.0 Micro: Microbiology 01/02/23 23:00 Urine, Clean Catch Legionella Antigen - Final 01/02/23 23:00 Urine, Clean Catch Streptococcus pneumoniae Antigen (M - Final Physical Exam Const alert, oriented x3, no apparent distress and average body habitus General Appearance: cooperative, well kempt and well developed Orientation / Consciousness: awake, oriented to person, oriented to place and oriented to time HEENT normocephalic, head/scalp atraumatic and moist oral mucous membranes Eyes PERRL, EOMs intact bilaterally and conjunctivae normal Neck supple, no JVD and thyroid normal General: trachea midline Resp normal respiratory effort, no retractions and no use of accessory muscles Resp Narrative: Breath sounds are diminished bilaterally Auscultation: Negative for rales, rhonchi or wheezes Cardio S1 normal heart sound, S2 normal heart sound, no murmurs, no rub and no gallops Cardio Narrative: Heart rate and rhythm is irregular GI normal to inspection, nondistended, normoactive bowel sounds, soft to palpation, non-tender and non-distended Extremity no clubbing, cyanosis or edema Skin no rashes or lesions noted General Skin Exam: no breakdown Neuro oriented x3, CN's II-XII intact bilaterally, moves all extremities, no focal motor deficits and no sensory deficits noted Sensorium / Orientation: awake, alert, oriented to person, oriented to place and oriented to time Speech: speech normal Psych affect normal Assessment & Plan Assessment/Plan (1) Congestive heart failure: (2) Acute and chronic respiratory failure with hypoxia: PLAN: Plan 1. Acute on chronic hypoxic respiratory failure-patient is currently on high flow oxygen, , pulmonary medicine is participating in his care, no changes currently in any of his medications patient is currently PCU status #2 acute diastolic congestive heart failure-continue IV Lasix, monitor pulse ox #3 chronic L-mri-pijmolo is currently on apixaban, he is not currently on any rate limiting medication, heart rate remains controlled at this time #4 bilateral pulmonary infiltrates-possible pneumonia, patient has finished his course of IV antibiotics at this time #5 chronic kidney disease-stage IIIa-labs will be monitored, complicates care, medical course, recovery, and prognosis Total clinical time spent by myself addressing the patient's medical issues, reviewing all the data, and collaborating with the patient's care team: 36 minutes Charges/Coding Visit Charges Inpatient E&M: 10037 Subs Hosp L2
[2023-01-08] MEDS: Potassium Chloride Oral Tablet 20 MEQ PO (16:52)
[2023-01-09] VITALS (10 sets, daily range): BP systolic 102–119; BP diastolic 42–68; PULSE 68–110; RESP 18–24; TEMP 36–36.6; O2SAT 85–98
--- NOTE | 2023-01-09 00:32 | EKG12_ITS ---
Test Reason : CHANGES Blood Pressure : / mmHG Vent. Rate : 075 BPM Atrial Rate : 075 BPM P-R Int : 170 ms QRS Dur : 100 ms QT Int : 406 ms P-R-T Axes : 010 -27 048 degrees QTc Int : 453 ms Sinus rhythm with marked sinus arrhythmia Otherwise normal ECG When compared with ECG of 09-JAN-2023 00:41, MANUAL COMPARISON REQUIRED, DATA IS UNCONFIRMED Confirmed by LETY ARVIZU, ROSE ([id number]), restaurant expeditor MIGUELINA BRONSON ([id number]) on 01/11/2023 11:17:36 AM Referred By: JOB Confirmed By:ROSE DAVIDSON MD
--- NOTE | 2023-01-09 00:41 | EKG12_ITS ---
Test Reason : CHANGES Blood Pressure : / mmHG Vent. Rate : 078 BPM Atrial Rate : 078 BPM P-R Int : 168 ms QRS Dur : 102 ms QT Int : 408 ms P-R-T Axes : 013 -28 045 degrees QTc Int : 465 ms Sinus rhythm with Blocked Premature atrial complexes Otherwise normal ECG No previous ECGs available Confirmed by LETY ARVIZU, ROSE ([id number]), publications editor MIGUELINA BRONSON ([id number]) on 01/11/2023 11:18:49 AM Referred By: JOB Confirmed By:ROSE DAVIDSON MD
[2023-01-09 05:09] LABS: Hematocrit 42.3 % (40-54); Hemoglobin 13.6 g/dL (13.0-16.5); Mean Corp Hgb Conc 32.2 g/dL (32-36); Mean Corpuscular Hgb 30.6 pg (27.0-32.0); Mean Corpuscular Volume 95.1 fL (80-94); Mean Platelet Vol. 9.9 fl (6.2-12.0); POSITIVE COUNT YES; POSITIVE MORPHOLOGY YES; Platelet Count 339 K/mm3 (150-450); RBC Distribution Width CV 14.5 % (11.6-14.6); RBC Distribution Width SD 50.4 fl (35.1-43.9); Red Blood Count 4.45 M/mm3 (4.6-6.2)
[2023-01-09 05:13] LABS: Differential Indicated MANUAL DIFF
[2023-01-09 05:25] LABS: Anion Gap 6 (5-15); BUN 41 mg/dL (7-18); BUN/Creat Ratio 35.7 RATIO (10-20); Calcium,Total 8.8 mg/dL (8.5-10.1); Chloride 103 mmol/L (98-107); Creatinine, Serum 1.15 mg/dL (0.70-1.30); EST Glomerular Filtration Rate 65 mL/min (>60); Est Glom Filt Rate - Afr Amer 79 mL/min (>60); Estimated Creatinine Clearance 51.22 ml/min; Glucose 145 mg/dL (74-106); Sodium Level 141 mmol/L (136-145)
[2023-01-09 07:18] LABS: Eosinophil 3 % (0-5); Lymphocyte 15 % (19-41); Metamyelocyte 1 % (0-1); Monocyte 1 % (0-10); Myelocyte 2 % (0-0); Neutrophil-Band 2 % (0-5); Neutrophil-Segmented 74 % (47-70); Promyelocyte 1 % (0-0); Reactive Lymphocyte RARE; Total Cells Counted 100 (MANUAL DIFF)
[2023-01-09 07:19] LABS: Platelet Estimate ADEQUATE (ADEQ); Red Cell Morphology NORM C+C NORMAL (NORM C&C)
[2023-01-09 07:20] LABS: Absolute Lymphocyte Count 1.65 X10^3/uL (0.83-4.51); Absolute Neutrophil Count 8.4 X10^3/uL (2.0-7.7); Lymphocyte # 1.65 X10^3/ul (0.83-4.51); Neutrophil # 8.36 X10^3/uL (2.7-7.7)
--- NOTE | 2023-01-09 08:56 | PCM.PN.INT ---
Assessment & Plan Assessment/Plan (1) Acute and chronic respiratory failure with hypoxia: (2) Congestive heart failure: PLAN: Plan RECOMMENDATIONS: 1. Monitor bowel movements 2. Discontinued antibiotics on 01/08/2023. Monitor clinically 3. Continue diuretics as tolerated. 4. Wean supplemental oxygen as tolerated. Possibly transition to nasal cannula later today 5. Transition to prednisone therapy and wean over the next 14 days 6. Await speech therapy evaluation swallow study IMPRESSIONS: 1. Acute hypoxic respiratory failure Unclear exact etiology. Patient did have COVID-19 last month, so postinflammatory pulmonary fibrosis would be a concern. CT of the chest does show some groundglass opacities and may be consistent with an atypical pneumonia. Patient is not reporting any change in cough, but BNP is significantly elevated indicating possible CHF. Patient has had a significant diuresis over the last 24 hours with improvement in saturation. Patient has completed a 5-day course of antibiotics. Mediastinal lymphadenopathy may be secondary to previous COVID. Steroids are reasonable for now but will transition to prednisone and wean over the next 12 to 14 days. Lower PASP is odd given the amount of supplemental oxygen patient is requiring. Chest x-ray overnight shows significant left-sided infiltrates with improvement in the right. We will continue with diuresis as tolerated. Unclear if infiltrates on the left are dense enough to lead to shunt physiology. Patient appears to be responding to diuresis. Patient can have a walking oximetry. 2. A-fib with RVR Converted to normal sinus rhythm overnight. Well-controlled. Patient with a history of chronic A-fib on anticoagulation. Heart rate appears to be well controlled at this time. We will continue with baseline medications. Patient's echocardiogram was not significantly changed. Patient does have some AI, but pulmonary artery pressures are lower than expected given the amount of supplemental oxygen required. EF is preserved. 3. Hypertension/advanced age/concern for aspiration/environmental allergies Complicates care, management, recovery and prognosis. Okay to continue with baseline medications for hypertension. Patient could be continued on baseline allergy medications. Will await a speech therapy evaluation given outpatient concerns. Clinical suspicion for diarrhea secondary to antibiotics. Patient is not having fever or leukocytosis to suggest C. difficile. Testing is currently pending. Subjective Subjective Patient did well overnight. Patient was actually on 4 L nasal cannula for some time last night, but is back up to 6 L this morning. Patient does continue to have a cough, but it is not as a paroxysmal. Patient does have significant shortness of breath with exertion. Patient did transition to normal sinus rhythm overnight. Objective Data Objective Data Vital Signs: Vital Signs Temp Pulse Resp BP Pulse Ox O2 Del Method O2 Flow Rate 36.6 C 68 18 109/42 L 93 Nasal Cannula 6 01/09/23 03:04 01/09/23 03:04 01/09/23 03:04 01/09/23 03:04 01/09/23 04:46 01/09/23 04:46 01/09/23 04:46 FiO2 50 01/08/23 05:23 Oxygen Flow Rate (L/min) 6 Oxygen Delivery Method Nasal Cannula Weight: 80 kg Body Mass Index (BMI) 27.1 Intake & Output: Intake and Output for Last 24 Hours 01/07/23 01/08/23 01/09/23 23:59 23:59 23:59 Intake Total 300 / 300 1010 / 1010 Output Total 700 / 700 2780 / 2780 100 / 100 Balance -400 / -400 -1770 / -1770 -100 / -100 Medical Nutrition Assessment Dietitian: Malnutrition Criteria Met Start: 01/04/23 13:37 Freq: Status: Active Protocol: Document 01/06/23 09:55 AG (Rec: 01/06/23 09:55 AG [id number]) Nutrition Malnutrition Evidence of Malnutrition Exists Yes Malnutrition (severe): Acute Illness/Injury Evidenced By Suboptimal Energy Intake ( Severe),Weight Loss (Severe) Clinical Problem Acute Disease or Injury Related Malnutrition Etiology severe, acute malnutrition related to inadequate energy intake w/ increased energy needs d/t resp. failure Signs/Symptoms as evidenced by estimated PO intake meeting <75% estimated energy needs > 7 days; unintentional 30.7#/15% wt loss x 2 months Status Active Problem Altered Nutrient-Related Laboratory Values Etiology - Signs/Symptoms - Status Inactive Problem Recommendation Dietitian Recommendations/Changes continue cardiac diet w/ fluid restriction as indicated; may need to consider liberalizing to regular/sodium restricted pending PO intake/resp. status . Will provide vanilla magic cup w/ lunch for additional calories/protein if consumed. Lab / Micro Data Attestation: I reviewed the patient's lab results. Result Diagrams: 01/09/23 04:36 01/09/23 04:36 Labs: Laboratory Results - last 24 hr 01/09/23 04:36: WBC 11.0, RBC 4.45 L, Hgb 13.6, Hct 42.3, MCV 95.1 H, MCH 30.6, MCHC 32.2, RDW Std Deviation 50.4 H, RDW Coeff of Scotty 14.5, Plt Count 339, MPV 9.9, Neut % (Auto) Not Reportable, Absolute Neuts (auto) 8.4 H, Absolute Lymphs (auto) 1.65, Total Counted 100, Neutrophils % (Manual) 74 H, Band Neutrophils % 2, Lymphocytes % (Manual) 15 L, Monocytes % (Manual) 1, Eosinophils % (Manual) 3, Metamyelocytes % 1, Myelocytes % 2 H, Promyelocytes % 1 H, Diff Path Review May foll, Reactive Lymphocytes RARE, Platelet Estimate ADEQUATE, RBC Morphology NORM C+C 01/09/23 04:36: Sodium 141, Potassium 4.0, Chloride 103, Carbon Dioxide 32.0, Anion Gap 6, BUN 41 H, Creatinine 1.15, Estim Creat Clear Calc 51.22, Est GFR (MDRD) Af Amer 79, Est GFR (MDRD) Non-Af 65, BUN/Creatinine Ratio 35.7 H, Glucose 145 H, Calcium 8.8 Micro: Microbiology 01/02/23 23:00 Urine, Clean Catch Legionella Antigen - Final 01/02/23 23:00 Urine, Clean Catch Streptococcus pneumoniae Antigen (M - Final Radiography Diagnostic Testing: Radiology Impression Chest X-Ray 01/08/23 05:20 IMPRESSION: Stable chest with no acute superimposed finding. Electronically Signed: Marvin Vaughn, at 10:36 EST , Rhythm Strip Rhythm Strip: Sinus Rhythm Rate: 68 Physical Exam Const alert and oriented x3 Constitutional Narrative: Nonproductive, nonparoxysmal cough noted during today's evaluation. No conversational dyspnea. Patient resting comfortably in bed. General Appearance: cooperative and well developed HEENT normocephalic, head/scalp atraumatic and moist oral mucous membranes Eyes PERRL and EOMs intact bilaterally Neck full ROM and no lymphadenopathy Chest inspection of chest normal Resp Effort and Inspection: Negative for able to speak in complete sentences or actively coughing Auscultation: rales left (Improving); Negative for rhonchi or wheezes Percussion: Negative for dullness Cardio regular rate, regular rhythm, S1 normal heart sound, S2 normal heart sound, no murmurs, no rub and no gallops GI normal to inspection, nondistended, normoactive bowel sounds no CVA tenderness Extremity no clubbing, cyanosis or edema Skin no rashes or lesions noted Neuro oriented x3, CN's II-XII intact bilaterally, moves all extremities and no focal motor deficits Psych cooperative and affect normal Charges/Coding Visit Charges Inpatient E&M: 03112 Subs Hosp L2
[2023-01-09] MEDS: Potassium Chloride Oral Tablet 20 MEQ PO (09:04)
[2023-01-09] MEDS: predniSONE 20 MG Tablet 40 MG PO (09:05)
[2023-01-09] MEDS: Topiramate 25 MG Tablet PO (09:05)
[2023-01-09] MEDS: Multivitamins,Therapeutic Tablet 1 TABLET PO (09:05)
[2023-01-09] MEDS: Furosemide 40 MG/4 ML Vial IV ×2 (09:06→17:13)
[2023-01-09] MEDS: Atorvastatin Calcium 10 MG Tablet 5 MG PO (09:06)
[2023-01-09] MEDS: Ezetimibe 10 MG Tablet PO (09:06)
[2023-01-09] MEDS: guaiFENesin 1,200 MG Tablet 1200 MG PO ×2 (09:06→21:43)
[2023-01-09] MEDS: APIXABAN 5 MG TABLET PO ×2 (09:07→21:43)
[2023-01-09] MEDS: 0.9% Saline Lock 10 ML Syringe IV ×2 (09:08→17:13)
[2023-01-09] MEDS: Pantoprazole Sodium 20 MG Tablet PO (09:08)
[2023-01-09] MEDS: Montelukast 10 MG Tablet PO (09:08)
--- NOTE | 2023-01-09 09:51 | PCM.PN.HOSP ---
Reason for Visit Reason for Visit: Diagnoses Heart failure, unspecified (01/03/23) Interstitial pulmonary disease, unspecified (01/03/23) Acute and chronic respiratory failure with hypoxia (01/03/23) Hypoxemia (01/03/23) Subjective Subjective Patient was seen and examined today, he is at 6 L supplemental oxygen at rest at this time. Patient otherwise appears to be stable, I have asked nursing to ambulate the patient to see if he could possibly go home today, he does have an oxygen concentrator at home but I feel he may need more oxygen than he is able to get from his concentrator. If that is the case, a higher level oxygen concentrator will need to be set up possibly tomorrow and the patient can go home. Objective Data Objective Data Vital Signs: Vital Signs Temp Pulse Resp BP Pulse Ox O2 Del Method O2 Flow Rate 96.8 F L 91 20 H 119/68 88 Nasal Cannula 6 01/09/23 08:00 01/09/23 08:00 01/09/23 08:00 01/09/23 08:00 01/09/23 08:00 01/09/23 08:00 01/09/23 08:00 FiO2 50 01/08/23 05:23 Oxygen Flow Rate (L/min) 6 Oxygen Delivery Method Nasal Cannula Weight: 80 kg Body Mass Index (BMI) 27.1 Intake & Output: Intake and Output for Last 24 Hours 01/07/23 01/08/23 01/09/23 23:59 23:59 23:59 Intake Total 300 / 300 1010 / 1010 Output Total 700 / 700 2780 / 2780 100 / 100 Balance -400 / -400 -1770 / -1770 -100 / -100 Medical Nutrition Assessment Dietitian: Malnutrition Criteria Met Start: 01/04/23 13:37 Freq: Status: Active Protocol: Document 01/06/23 09:55 AG (Rec: 01/06/23 09:55 AG [id number]) Nutrition Malnutrition Evidence of Malnutrition Exists Yes Malnutrition (severe): Acute Illness/Injury Evidenced By Suboptimal Energy Intake ( Severe),Weight Loss (Severe) Clinical Problem Acute Disease or Injury Related Malnutrition Etiology severe, acute malnutrition related to inadequate energy intake w/ increased energy needs d/t resp. failure Signs/Symptoms as evidenced by estimated PO intake meeting <75% estimated energy needs > 7 days; unintentional 30.7#/15% wt loss x 2 months Status Active Problem Altered Nutrient-Related Laboratory Values Etiology - Signs/Symptoms - Status Inactive Problem Recommendation Dietitian Recommendations/Changes continue cardiac diet w/ fluid restriction as indicated; may need to consider liberalizing to regular/sodium restricted pending PO intake/resp. status . Will provide vanilla magic cup w/ lunch for additional calories/protein if consumed. Lab / Micro Data Result Diagrams: 01/09/23 04:36 01/09/23 04:36 Labs: Laboratory Results - last 24 hr 01/09/23 04:36: WBC 11.0, RBC 4.45 L, Hgb 13.6, Hct 42.3, MCV 95.1 H, MCH 30.6, MCHC 32.2, RDW Std Deviation 50.4 H, RDW Coeff of Scotty 14.5, Plt Count 339, MPV 9.9, Neut % (Auto) Not Reportable, Absolute Neuts (auto) 8.4 H, Absolute Lymphs (auto) 1.65, Total Counted 100, Neutrophils % (Manual) 74 H, Band Neutrophils % 2, Lymphocytes % (Manual) 15 L, Monocytes % (Manual) 1, Eosinophils % (Manual) 3, Metamyelocytes % 1, Myelocytes % 2 H, Promyelocytes % 1 H, Diff Path Review May foll, Reactive Lymphocytes RARE, Platelet Estimate ADEQUATE, RBC Morphology NORM C+C 01/09/23 04:36: Sodium 141, Potassium 4.0, Chloride 103, Carbon Dioxide 32.0, Anion Gap 6, BUN 41 H, Creatinine 1.15, Estim Creat Clear Calc 51.22, Est GFR (MDRD) Af Amer 79, Est GFR (MDRD) Non-Af 65, BUN/Creatinine Ratio 35.7 H, Glucose 145 H, Calcium 8.8 Micro: Microbiology 01/02/23 23:00 Urine, Clean Catch Legionella Antigen - Final 01/02/23 23:00 Urine, Clean Catch Streptococcus pneumoniae Antigen (M - Final Radiography Diagnostic Testing: Radiology Impression Chest X-Ray 01/08/23 05:20 IMPRESSION: Stable chest with no acute superimposed finding. Electronically Signed: Marvin Vaughn, at 10:36 EST , Rhythm Strip Rhythm Strip: Sinus Rhythm Rate: 68 Physical Exam Narrative alert, oriented x3, no apparent distress and average body habitus General Appearance: cooperative, well kempt and well developed Orientation / Consciousness: awake, oriented to person, oriented to place and oriented to time HEENT normocephalic, head/scalp atraumatic and moist oral mucous membranes Eyes PERRL, EOMs intact bilaterally and conjunctivae normal Neck supple, no JVD and thyroid normal General: trachea midline Resp normal respiratory effort, no retractions and no use of accessory muscles Resp Narrative: Breath sounds are diminished bilaterally Auscultation: Negative for rales, rhonchi or wheezes Cardio S1 normal heart sound, S2 normal heart sound, no murmurs, no rub and no gallops Cardio Narrative: Heart rate and rhythm is irregular GI normal to inspection, nondistended, normoactive bowel sounds, soft to palpation, non-tender and non-distended Extremity no clubbing, cyanosis or edema Skin no rashes or lesions noted General Skin Exam: no breakdown Neuro oriented x3, CN's II-XII intact bilaterally, moves all extremities, no focal motor deficits and no sensory deficits noted Sensorium / Orientation: awake, alert, oriented to person, oriented to place and oriented to time Speech: speech normal Psych affect normal Assessment & Plan Assessment/Plan (1) Interstitial lung disease: (2) Congestive heart failure: (3) Acute and chronic respiratory failure with hypoxia: PLAN: Plan 1. Acute on chronic hypoxic respiratory failure-patient is currently on high flow oxygen, , pulmonary medicine is participating in his care, no changes currently in any of his medications patient is currently PCU status #2 acute diastolic congestive heart failure-continue IV Lasix, monitor pulse ox #3 chronic [id number] is currently on apixaban, he is not currently on any rate limiting medication, heart rate remains controlled at this time #4 bilateral pulmonary infiltrates-possible pneumonia, patient has finished his course of IV antibiotics at this time #5 chronic kidney disease-stage IIIa-labs will be monitored, complicates care, medical course, recovery, and prognosis #6 severe protein and caloric malnutrition-related to inadequate energy intake with increased energy needs due to respiratory failure as evidenced by estimated p.o. intake meeting less than 75% of estimated energy needs over 7 days and an unintentional 30.7 pound weight loss over 2 months-continue cardiac diet, patient is being provided vanilla Magic cup with lunch for additional calories/protein if consumed. Total clinical time spent by myself addressing the patient's medical issues, reviewing all the data, and collaborating with the patient's care team: 37 minutes Charges/Coding Visit Charges Inpatient E&M: 10179 Subs Hosp L2
[2023-01-10] VITALS (7 sets, daily range): BP systolic 109–115; BP diastolic 60–84; PULSE 84–95; RESP 19–40; TEMP 35.9–36.4; O2SAT 85–98
[2023-01-10 03:59] LABS: Hematocrit 43.8 % (40-54); Hemoglobin 13.8 g/dL (13.0-16.5); Mean Corp Hgb Conc 31.5 g/dL (32-36); Mean Corpuscular Hgb 29.9 pg (27.0-32.0); Mean Corpuscular Volume 94.8 fL (80-94); Mean Platelet Vol. 9.9 fl (6.2-12.0); POSITIVE COUNT YES; POSITIVE MORPHOLOGY YES; Platelet Count 372 K/mm3 (150-450); RBC Distribution Width CV 14.3 % (11.6-14.6); RBC Distribution Width SD 49.1 fl (35.1-43.9); Red Blood Count 4.62 M/mm3 (4.6-6.2); White Blood Count 12.4 K/mm3 (4.4-11.0)
[2023-01-10 04:02] LABS: Differential Indicated MANUAL DIFF
[2023-01-10 04:13] LABS: Anion Gap 5 (5-15); BUN 43 mg/dL (7-18); BUN/Creat Ratio 37.7 RATIO (10-20); Calcium,Total 9.4 mg/dL (8.5-10.1); Chloride 102 mmol/L (98-107); Creatinine, Serum 1.14 mg/dL (0.70-1.30); EST Glomerular Filtration Rate 66 mL/min (>60); Est Glom Filt Rate - Afr Amer 80 mL/min (>60); Estimated Creatinine Clearance 51.67 ml/min; Glucose 172 mg/dL (74-106); Sodium Level 140 mmol/L (136-145)
[2023-01-10 04:47] LABS: Absolute Lymphocyte Count 1.48 X10^3/uL (0.83-4.51); Absolute Neutrophil Count 9.3 X10^3/uL (2.0-7.7); Macrocytosis RARE; Neutrophil-Segmented 75 % (47-70); Platelet Estimate ADEQUATE (ADEQ); Red Cell Morphology NORM C+C NORMAL (NORM C&C); Total Cells Counted 100 (MANUAL DIFF)
[2023-01-10 04:48] LABS: Blast 1 % (0-0); Eosinophil 1 % (0-5); Lymphocyte 12 % (19-41); Monocyte 7 % (0-10); Myelocyte 3 % (0-0); Promyelocyte 1 % (0-0)
--- NOTE | 2023-01-10 06:16 | PCM.PN.INT ---
Assessment & Plan Assessment/Plan (1) Acute and chronic respiratory failure with hypoxia: PLAN: Plan RECOMMENDATIONS: 1. Wean supplemental oxygen to maintain saturations at or above 90%. 2. Continue diuretic therapy as tolerated by hemodynamics and renal function. 3. Continue prednisone 40 mg daily x5 days. 4. Modified barium swallow today per speech therapy. 5. Encourage incentive spirometer use and mobilize patient as tolerated. IMPRESSIONS: 1. Acute hypoxemic respiratory failure Unclear precipitating etiology. The patient did have recent COVID-19 making postinfectious pulmonary fibrosis as a possibility. In addition, there has been concern in the past for chronic aspiration, which could also lead to pneumonitis. Lastly, the patient did have an elevated BNP, making pulmonary edema a possibility as well. The patient appears to be slowly improving from a respiratory perspective, with decreasing supplemental oxygen needs. The patient has completed a 5-day course of antibiotics. The patient is going to be evaluated further by speech therapy with a modified barium swallow today. In the interim, continue to wean supplemental oxygen to maintain saturations at or above 90%. Encourage incentive spirometer use and mobilize patient as tolerated. Continue Lasix as tolerated by hemodynamics and renal function. 2. Atrial fibrillation with RVR Now resolved. The patient remains in normal sinus rhythm at the present time. 3. Hypertension/chronic cough/environmental allergies Complicates care, management, recovery and prognosis. Continue baseline medications as tolerated. This note was generated with [employer] dictation software. It may contain incorrect words, spelling, and punctuation that were not noted in checking the note before signing. Subjective Subjective The patient was seen and examined at the bedside this morning. Events from the last 24 hours have been reviewed. The patient is currently afebrile, hemodynamically stable and maintaining appropriate oxygen saturations on 4 L/min via nasal cannula. The patient is documented to be overall net -4.7 L for the hospitalization. There are plans for modified barium swallow today per speech therapy. The patient denies any resting shortness of breath but does have a chronic, unchanged cough. Objective Data Objective Data The patient's most recent lab work, culture data and imaging studies have all been personally reviewed. Surface echocardiogram demonstrated normal LV size and function with an ejection fraction of 65%. Pulmonary artery systolic pressure was estimated to be 26 mmHg. Vital Signs: Vital Signs Temp Pulse Resp BP Pulse Ox O2 Del Method O2 Flow Rate 97.4 F L 85 19 H 109/84 H 96 Nasal Cannula 6 01/10/23 05:30 01/10/23 05:30 01/10/23 05:30 01/10/23 05:30 01/10/23 05:30 01/10/23 05:39 01/10/23 05:39 FiO2 50 01/08/23 05:23 Oxygen Flow Rate (L/min) [ 10 AMBULATING with Oxygen #3] Oxygen Flow Rate (L/min) [ 8 AMBULATING with Oxygen #2] Oxygen Flow Rate (L/min) [ 6 AMBULATING with Oxygen #1] Oxygen Flow Rate (L/min) 6 Oxygen Delivery Method Nasal Cannula Weight: 176 lb 12.972 oz Body Mass Index (BMI) 27.1 Intake & Output: Intake and Output for Last 24 Hours 01/08/23 01/09/23 01/10/23 23:59 23:59 23:59 Intake Total 1010 / 1010 240 / 240 Output Total 2780 / 2780 800 / 1050 250 / 250 Balance -1770 / -1770 -560 / -810 -250 / -250 Medical Nutrition Assessment Dietitian: Malnutrition Criteria Met Start: 01/04/23 13:37 Freq: Status: Active Protocol: Document 01/06/23 09:55 AG (Rec: 01/06/23 09:55 [id number]) Nutrition Malnutrition Evidence of Malnutrition Exists Yes Malnutrition (severe): Acute Illness/Injury Evidenced By Suboptimal Energy Intake ( Severe),Weight Loss (Severe) Clinical Problem Acute Disease or Injury Related Malnutrition Etiology severe, acute malnutrition related to inadequate energy intake w/ increased energy needs d/t resp. failure Signs/Symptoms as evidenced by estimated PO intake meeting <75% estimated energy needs > 7 days; unintentional 30.7#/15% wt loss x 2 months Status Active Problem Altered Nutrient-Related Laboratory Values Etiology - Signs/Symptoms - Status Inactive Problem Recommendation Dietitian Recommendations/Changes continue cardiac diet w/ fluid restriction as indicated; may need to consider liberalizing to regular/sodium restricted pending PO intake/resp. status . Will provide vanilla magic cup w/ lunch for additional calories/protein if consumed. Lab / Micro Data Attestation: I reviewed the patient's lab results. Result Diagrams: 01/10/23 03:45 01/10/23 03:45 Labs: Laboratory Results - last 24 hr 01/09/23 04:36: Absolute Neuts (auto) 8.4 H, Absolute Lymphs (auto) 1.65, Total Counted 100, Neutrophils % (Manual) 74 H, Band Neutrophils % 2, Lymphocytes % (Manual) 15 L, Monocytes % (Manual) 1, Eosinophils % (Manual) 3, Metamyelocytes % 1, Myelocytes % 2 H, Promyelocytes % 1 H, Diff Path Review May foll, Reactive Lymphocytes RARE, Platelet Estimate ADEQUATE, RBC Morphology NORM C+C 01/10/23 03:45: WBC 12.4 H, RBC 4.62, Hgb 13.8, Hct 43.8, MCV 94.8 H, MCH 29.9, MCHC 31.5 L, RDW Std Deviation 49.1 H, RDW Coeff of Scotty 14.3, Plt Count 372, MPV 9.9, Neut % (Auto) Not Reportable, Absolute Neuts (auto) 9.3 H, Absolute Lymphs (auto) 1.48, Total Counted 100, Neutrophils % (Manual) 75 H, Lymphocytes % (Manual) 12 L, Monocytes % (Manual) 7, Eosinophils % (Manual) 1, Myelocytes % 3 H, Promyelocytes % 1 H, Blast Cells % 1 H*, Diff Path Review May foll, Platelet Estimate ADEQUATE, RBC Morphology NORM C+C, Macrocytosis RARE 01/10/23 03:45: Sodium 140, Potassium 4.0, Chloride 102, Carbon Dioxide 33.0 H, Anion Gap 5, BUN 43 H, Creatinine 1.14, Estim Creat Clear Calc 51.67, Est GFR (MDRD) Af Amer 80, Est GFR (MDRD) Non-Af 66, BUN/Creatinine Ratio 37.7 H, Glucose 172 H, Calcium 9.4 Micro: Microbiology 01/02/23 23:00 Urine, Clean Catch Legionella Antigen - Final 01/02/23 23:00 Urine, Clean Catch Streptococcus pneumoniae Antigen (M - Final Rhythm Strip Rhythm Strip: Sinus Rhythm Rate: 68 Physical Exam Const alert, oriented x3 and no apparent distress General Appearance: cooperative HEENT normocephalic and head/scalp atraumatic Eyes PERRL, EOMs intact bilaterally and conjunctivae normal Neck supple General: trachea midline Chest inspection of chest normal Resp normal respiratory effort Resp Narrative: Frequent paroxysms of coughing with faint rales present. Cardio regular rate and regular rhythm GI normal to inspection, nondistended, normoactive bowel sounds Extremity no clubbing, cyanosis or edema Skin no rashes or lesions noted Neuro oriented x3, CN's II-XII intact bilaterally and moves all extremities Psych cooperative and affect normal Charges/Coding Visit Charges Inpatient E&M: 52851 Subs Hosp L2
--- NOTE | 2023-01-10 07:11 | PN.HOSP_ITS ---
Reason for Visit Reason for Visit: Diagnoses Heart failure, unspecified (01/03/23) Interstitial pulmonary disease, unspecified (01/03/23) Acute and chronic respiratory failure with hypoxia (01/03/23) Hypoxemia (01/03/23) Subjective Subjective Breathing well. Objective Data Objective Data Vital Signs: Vital Signs Temp Pulse Resp BP Pulse Ox O2 Del Method O2 Flow Rate 36.3 C L 85 19 H 109/84 H 96 Nasal Cannula 6 01/10/23 05:30 01/10/23 05:30 01/10/23 05:30 01/10/23 05:30 01/10/23 05:30 01/10/23 05:39 01/10/23 05:39 FiO2 50 01/08/23 05:23 Oxygen Flow Rate (L/min) [ 10 AMBULATING with Oxygen #3] Oxygen Flow Rate (L/min) [ 8 AMBULATING with Oxygen #2] Oxygen Flow Rate (L/min) [ 6 AMBULATING with Oxygen #1] Oxygen Flow Rate (L/min) 6 Oxygen Delivery Method Nasal Cannula Weight: 80.2 kg Body Mass Index (BMI) 27.1 Intake & Output: Intake and Output for Last 24 Hours 01/08/23 01/09/23 01/10/23 23:59 23:59 23:59 Intake Total 1010 / 1010 240 / 240 Output Total 2780 / 2780 800 / 1050 250 / 250 Balance -1770 / -1770 -560 / -810 -250 / -250 Medical Nutrition Assessment Dietitian: Malnutrition Criteria Met Start: 01/04/23 13:37 Freq: Status: Active Protocol: Document 01/06/23 09:55 AG (Rec: 01/06/23 09:55 [id number]) Nutrition Malnutrition Evidence of Malnutrition Exists Yes Malnutrition (severe): Acute Illness/Injury Evidenced By Suboptimal Energy Intake ( Severe),Weight Loss (Severe) Clinical Problem Acute Disease or Injury Related Malnutrition Etiology severe, acute malnutrition related to inadequate energy intake w/ increased energy needs d/t resp. failure Signs/Symptoms as evidenced by estimated PO intake meeting <75% estimated energy needs > 7 days; unintentional 30.7#/15% wt loss x 2 months Status Active Problem Altered Nutrient-Related Laboratory Values Etiology - Signs/Symptoms - Status Inactive Problem Recommendation Dietitian Recommendations/Changes continue cardiac diet w/ fluid restriction as indicated; may need to consider liberalizing to regular/sodium restricted pending PO intake/resp. status . Will provide vanilla magic cup w/ lunch for additional calories/protein if consumed. Lab / Micro Data Result Diagrams: 01/10/23 03:45 01/10/23 03:45 Labs: Laboratory Results - last 24 hr 01/09/23 04:36: Absolute Neuts (auto) 8.4 H, Absolute Lymphs (auto) 1.65, Total Counted 100, Neutrophils % (Manual) 74 H, Band Neutrophils % 2, Lymphocytes % (Manual) 15 L, Monocytes % (Manual) 1, Eosinophils % (Manual) 3, Metamyelocytes % 1, Myelocytes % 2 H, Promyelocytes % 1 H, Diff Path Review May db, Reactive Lymphocytes RARE, Platelet Estimate ADEQUATE, RBC Morphology NORM C+C 01/10/23 03:45: WBC 12.4 H, RBC 4.62, Hgb 13.8, Hct 43.8, MCV 94.8 H, MCH 29.9, MCHC 31.5 L, RDW Std Deviation 49.1 H, RDW Coeff of Scotty 14.3, Plt Count 372, MPV 9.9, Neut % (Auto) Not Reportable, Absolute Neuts (auto) 9.3 H, Absolute Lymphs (auto) 1.48, Total Counted 100, Neutrophils % (Manual) 75 H, Lymphocytes % (Manual) 12 L, Monocytes % (Manual) 7, Eosinophils % (Manual) 1, Myelocytes % 3 H, Promyelocytes % 1 H, Blast Cells % 1 H*, Diff Path Review May db, Platelet Estimate ADEQUATE, RBC Morphology NORM C+C, Macrocytosis RARE 01/10/23 03:45: Sodium 140, Potassium 4.0, Chloride 102, Carbon Dioxide 33.0 H, Anion Gap 5, BUN 43 H, Creatinine 1.14, Estim Creat Clear Calc 51.67, Est GFR (MDRD) Af Amer 80, Est GFR (MDRD) Non-Af 66, BUN/Creatinine Ratio 37.7 H, Glucose 172 H, Calcium 9.4 Micro: Microbiology 01/02/23 23:00 Urine, Clean Catch Legionella Antigen - Final 01/02/23 23:00 Urine, Clean Catch Streptococcus pneumoniae Antigen (M - Final Rhythm Strip Rhythm Strip: Sinus Rhythm Rate: 68 Physical Exam Const alert and no apparent distress HEENT head/scalp atraumatic and moist oral mucous membranes Resp normal respiratory effort, no retractions and no use of accessory muscles Cardio regular rate, regular rhythm, S1 normal heart sound and S2 normal heart sound GI normal to inspection, nondistended, normoactive bowel sounds, soft to palpation, non-tender and non-distended Assessment & Plan Assessment/Plan (1) Acute and chronic respiratory failure with hypoxia: PLAN: multifactorial 2/2 CHF, pneumonia, asthma Abx dc'd 01/08 on prednisone taper currently on 6 l nc, wean oxygen as tolerated MBS pending. (2) Congestive heart failure: QUALIFIERS: Heart failure type: other Qualified Code(s): I50.9 - Heart failure, unspecified PLAN: acute HFpEF EF 65% from echo on 01/02 negative 4.7 liters since admission on IV furosemide 40 BID since 01/03 (3) Protein calorie malnutrition: PLAN: severe protein and caloric malnutrition-related to inadequate energy intake with increased energy needs due to respiratory failure as evidenced by estimated p.o. intake meeting less than 75% of estimated energy needs over 7 days and an unintentional 30.7 pound weight loss over 2 months-continue cardiac diet, patient is being provided vanilla Magic cup with lunch for additional calories/protein if consumed. PLAN: Plan Chronic conditions: * chronic [id number] is currently on apixaban, he is not currently on any rate limiting medication, heart rate remains controlled at this time * chronic kidney disease-stage IIIa-labs will be monitored, complicates care, medical course, recovery, and prognosis VTE prophylaxis not indicated as pt taking apixaban. Charges/Coding Visit Charges Inpatient E&M: 79881 Subs Hosp L2
[2023-01-10] MEDS: Topiramate 25 MG Tablet PO (08:30)
[2023-01-10] MEDS: Furosemide 40 MG/4 ML Vial IV (08:30)
[2023-01-10] MEDS: Montelukast 10 MG Tablet PO (08:30)
[2023-01-10] MEDS: Atorvastatin Calcium 10 MG Tablet 5 MG PO (08:30)
[2023-01-10] MEDS: guaiFENesin 1,200 MG Tablet 1200 MG PO ×2 (08:30→20:30)
[2023-01-10] MEDS: Pantoprazole Sodium 20 MG Tablet PO (08:30)
[2023-01-10] MEDS: APIXABAN 5 MG TABLET PO ×2 (08:31→20:30)
[2023-01-10] MEDS: Multivitamins,Therapeutic Tablet 1 TABLET PO (08:31)
[2023-01-10] MEDS: Ezetimibe 10 MG Tablet PO (08:31)
[2023-01-10] MEDS: predniSONE 20 MG Tablet 40 MG PO (08:31)
--- NOTE | 2023-01-10 09:44 | RAD_ITS ---
STUDY: X-RAY CHEST REASON FOR EXAM: Male, 77 years old. Fever and cough TECHNIQUE: Single AP portable view of the chest. COMPARISON: 01/08/2023 FINDINGS: EKG leads overlie the chest. Stable elevation of the right hemidiaphragm Lungs are underexpanded, producing noted opacifications in both lung holloway have improved but not yet completely resolved. Continued follow-up recommended to assure complete resolution. Normal size heart. Normal mediastinum and braulio. Normal visualized pulmonary arteries. Normal visualized aortic arch and descending thoracic aorta. There are diffuse degenerative changes of the visualized thoracic spine. There is degenerative osteoarthritis of the bilateral shoulders. There is no demonstrated abnormality of the visualized soft tissue structures of the upper abdomen. RAD/Chest 1 View (Portable) IMPRESSION: Partial but not yet complete resolution of previously noted opacifications throughout both lung holloway. Continued follow-up recommended to ensure complete resolution. Lungs are underexpanded with stable elevation of the right hemidiaphragm Electronically Signed: Bhargav Farnsworth MD at 11:24 EST ,
--- NOTE | 2023-01-10 10:06 | SP.MBSS_ITS ---
Modified Barium Swallow - Patient Information Study Date: 01/10/23 Study Time: 13:00 Direct Billable Minutes: 60 Total Minutes procedure & reportin Diagnosis: Acute & chronic respiratory failure w/ hypoxia (J96.21) Referring Physician: Tahir Thao Reason for Referral: Objectively assess swallow function, assess risk for aspiration, and determine recommendations for least restrictive diet textures and compensatory strategies to improve safety of swallow. Medical History: Kurt Gracia is a 77-year-old male with a significant history of CKD stage III unclear type, essential tremor, proximal A-fib on Eliquis, hypertension, hyperlipidemia, GERD, allergic rhinitis, history of COVID-19 in November 2022 requiring hospitalization with associated chronic hypoxic respiratory failure. He follows as an outpatient with heart coordinator, Dr. 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 He was planned speech therapy evaluation via MBSS to rule out microaspiration. Pt cancelled MBSS, stating he did not see the purpose in it. He then presented to outside hospital ED on 01/02/2023 with hypoxia of 62% on his chronic home oxygen of 3L, but with no increasing cough or SOB above his baseline. He also reported concern for weight loss. He was admitted to [facility] ICU 01/02/2023 for management of heart failure, interstitial pulmonary disease, acute and chronic respiratory failure w/ hypoxia, and hypoxemia. He has been followed by ST during stay and currently appears to be tolerating regular textures / thin liquids. He has been recommended by ST for MBSS to rule out concern for microaspiration, which, as mentioned above, was recommended by his outpatient heart coordinator. Pt now agreeable for participation. He is currently off Airvo and tolerating nasal cannula, so he can be transported to radiology for MBSS today. Current Diet Ordered: Regular textures / Thin liquids Mental Status: WNL Respiratory Status: Oxygenating on 4L/M nasal cannula - 6L/M via nasal cannula - Penetration-Aspiration Scale Penetration-Aspiration Scale: OBJECTIVE ASSESSMENT OF SWALLOW FUNCTION (QUANTITATIVE ? PER TRIAL): PENETRATION / ASPIRATION SCALE (SINGH): 1 = does not enter airway 2 = enters airway/above vocal folds/ejected 3 = enters airway/above vocal folds/not ejected 4 = enters airway/contacts vocal folds/ejected 5 = enters airway/contacts vocal folds/not ejected 6 = enters airway/below vocal folds/ejected 7 = enters airway/below vocal folds/not ejected despite effort 8 = enters airway/below vocal folds/no effort VIDEOFLOROSCOPIC SCALE SCORE (SINGH): Grade I = aspiration of material that has penetrated into the laryngeal vestibule, intact cough reflex Grade II = aspiration < 10 % of the bolus, intact cough reflex Grade III = aspiration of < 10 % of the bolus, reduced cough reflex or aspiration of > 10 % of the bolus, intact cough reflex Grade IV = aspiration of > 10 % of the bolus, reduced cough reflex - Penetration-Aspiration Scale Score Thin Liquid via teaspoon Result: 2= enter airway/above vocal folds/ejected Thin Liquid via teaspoon Trial 2 Result: 2= enter airway/above vocal folds/ejected Thin Liquid via large single sip from cup Result: 1= does not enter airway Thin Liquid via sequential sips from cup Result: 1= does not enter airway [place] Thick Liquid via small single sip from cup Result: 2= enter airway/above vocal folds/ejected Pudding via teaspoon with esophageal screen Result: 1= does not enter airway 1/2 Cookie Result: 1= does not enter airway Thin Liquid via single sip from straw Result: 1= does not enter airway - Oral Phase Labial Seal: No Labial Escape Tongue Control During Bolus Hold: Cohesive bolus between tongue to palatal seal Bolus Preparation/Mastication: Timely and efficient chewing and mashing Bolus Transport/Lingual Motion: Brisk tongue motion Oral Residue: Residue collection on oral structures - Pharyngeal Phase Initiation of Pharyngeal Swallow: Bolus head in valleculae Soft Palate Elevation: No bolus between soft palate and pharyngeal wall Laryngeal Elevation: Comp. Superior move thyroid cart w/comp. apprx arytenoid cart-epig pet Anterior Hyoid Excursion: Partial anterior movement Epiglottic Movement: Complete inversion Laryngeal Vestibule Closure at Height of Swallow: Incomplete; narrow column of air/contrast in laryngeal vestibule Pharyngeal Stripping Wave: Present - diminished Pharyngoesophageal Segment Opening: Complete distension and complete duration; no obstruction of flow Tongue Base Retraction: Trace column of contrast between tongue base & post. pharyngeal wall Pharyngeal Residue: Trace residue within or on pharyngeal structures - Esophageal Phase Esophageal Clearance: Complete clearance - Diagnosis/Impression Diagnosis: Oropharyngeal swallow function grossly WNL Impression: Overall, the patient presents with swallow function WNL. With larger sip via straw, he did present with mild oral residue, which was seen spilling to the vallecula after the swallow. Patient presents with timely swallow onset. Mildly decreased anterior hyoid excursion; however, the patient maintained excellent airway closure during the study. He demonstrated no aspiration and only trace laryngeal penetration of thin by tsp and nectar thick liquids via cup, which fully ejected during the swallow. No dysphagia therapy is warranted at this time. - Recommendations Diet: Regular Textures, Thin Liquids Compensatory Strategies: Small Bites, Small Sips, Slow Rate, Sitting upright Recommend Repeat Modified Barium Swallow: No Need for Skilled Speech Therapy Services: No Education Completed: 1. Described result of evaluation. - Status Active ST Patient: Active - Contact Information [facility] Speech Therapy:: Elicia Hernandez M.A. [facility] [employer] Speech-Language Pathologist [facility] [address] [place] [address] [email or web address] [phone] 01/10/23 10:18
--- NOTE | 2023-01-10 11:28 | CASEMGMT ---
Social Work Patient spouse request to speak with social welfare clerk in regards to insurance questions. This social welfare clerk met with patient spouse, Bina. Introduced self and social welfare clerk role. Bina inquired about insurance and which insurance is listed on patient chart. This social welfare clerk communicating that patient listed to have Medicare primary and [employer] secondary. Bina reports to be having billing issues with [facility] as Medicare is billing [employer] and not [employer]. Bina reports to have called Medicare to try and sort things out but Medicare will not talk with Bina as Medicare does not have a Health Care Power of director phone noted for patient and patient is not able to speak for self currently. Bina provided this social welfare clerk with Health Care Power of director phone and request for this social welfare clerk to fax to [phone], in order to allow Bina to speak with Medicare about above billing issues. Bina also agreeable to this social welfare clerk placing Health Care Power of director phone on patient chart. Bina is listed as Health Care Power of director phone. This social welfare clerk made copy of documents and faxed to requested number. Copy of Health Care Power of director phone placed on patient chart. Bina with no further questions. Original documents for Health Care Power of director phone provided back to Bina. Social Work to continue to follow as needed. Barry GUZMAN, [place]
[2023-01-11] VITALS (10 sets, daily range): BP systolic 99–124; BP diastolic 35–84; PULSE 60–99; RESP 18–26; TEMP 36.2–36.7; O2SAT 80–98; BMI 26.8
[2023-01-11 05:21] LABS: Anion Gap 6 (5-15); BUN 37 mg/dL (7-18); BUN/Creat Ratio 34.3 RATIO (10-20); Calcium,Total 8.6 mg/dL (8.5-10.1); Chloride 105 mmol/L (98-107); Creatinine, Serum 1.08 mg/dL (0.70-1.30); EST Glomerular Filtration Rate 70 mL/min (>60); Est Glom Filt Rate - Afr Amer 85 mL/min (>60); Estimated Creatinine Clearance 54.54 ml/min; Glucose 134 mg/dL (74-106); Potassium 4.7 mmol/L (3.5-5.1); Sodium Level 139 mmol/L (136-145)
--- NOTE | 2023-01-11 05:59 | PCM.PN.INT ---
Assessment & Plan Assessment/Plan (1) Acute and chronic respiratory failure with hypoxia: PLAN: Plan RECOMMENDATIONS: 1. Wean supplemental oxygen to maintain saturations at or above 90%. 2. Continue diuretic therapy as tolerated by hemodynamics and renal function. 3. Continue prednisone 40 mg daily x5 days. 4. Encourage incentive spirometer use and mobilize patient as tolerated. 5. Outpatient pulmonary follow-up as scheduled. IMPRESSIONS: 1. Acute hypoxemic respiratory failure Unclear precipitating etiology. The patient did have recent COVID-19 making postinfectious pulmonary fibrosis as a possibility. In addition, there has been concern in the past for chronic aspiration, which could also lead to pneumonitis. Lastly, the patient did have an elevated BNP, making pulmonary edema a possibility as well. The patient appears to be slowly improving from a respiratory perspective, with decreasing supplemental oxygen needs, in the setting of ongoing diuresis. The patient has completed a 5-day course of antibiotics. Modified barium swallow revealed swallow function to be within normal limits. Continue to wean supplemental oxygen to maintain saturations at or above 90%. Encourage incentive spirometer use and mobilize patient as tolerated. Continue Lasix as tolerated by hemodynamics and renal function. 2. Atrial fibrillation with RVR Now resolved. The patient remains in normal sinus rhythm at the present time. 3. Hypertension/chronic cough/environmental allergies Complicates care, management, recovery and prognosis. Continue baseline medications as tolerated. This note was generated with [employer] dictation software. It may contain incorrect words, spelling, and punctuation that were not noted in checking the note before signing. Subjective Subjective The patient was seen and examined at the bedside this morning. Events from the last 24 hours have been reviewed. The patient is currently afebrile, hemodynamically stable and maintaining appropriate oxygen saturations on 2 to 3 L/min via nasal cannula. The patient is documented to be overall net -5.4 L for the hospitalization. The patient did complete a modified barium swallow yesterday which overall demonstrated his swallow function to be within normal limits. The patient's chronic cough persists. Objective Data Objective Data The patient's most recent lab work, culture data and imaging studies have all been personally reviewed. Surface echocardiogram demonstrated normal LV size and function with an ejection fraction of 65%. Pulmonary artery systolic pressure was estimated to be 26 mmHg. Vital Signs: Vital Signs Temp Pulse Resp BP Pulse Ox O2 Del Method O2 Flow Rate 97.2 F L 63 24 H 99/57 L 98 Nasal Cannula 3 01/11/23 00:00 01/11/23 00:00 01/11/23 00:00 01/11/23 00:00 01/11/23 00:00 01/11/23 05:56 01/11/23 00:00 FiO2 50 01/08/23 05:23 Oxygen Flow Rate (L/min) [ 10 AMBULATING with Oxygen #3] Oxygen Flow Rate (L/min) [ 8 AMBULATING with Oxygen #2] Oxygen Flow Rate (L/min) [ 6 AMBULATING with Oxygen #1] Oxygen Flow Rate (L/min) 3 Oxygen Delivery Method Nasal Cannula Weight: 176 lb 9.444 oz Body Mass Index (BMI) 26.8 Intake & Output: Intake and Output for Last 24 Hours 01/09/23 01/10/23 01/11/23 23:59 23:59 23:59 Intake Total 240 / 240 530 / 560 30 / 30 Output Total 800 / 1050 1075 / 1075 400 / 400 Balance -560 / -810 -545 / -515 -370 / -370 Medical Nutrition Assessment Dietitian: Malnutrition Criteria Met Start: 01/04/23 13:37 Freq: Status: Active Protocol: Document 01/06/23 09:55 (Rec: 01/06/23 09:55 [id number]) Nutrition Malnutrition Evidence of Malnutrition Exists Yes Malnutrition (severe): Acute Illness/Injury Evidenced By Suboptimal Energy Intake ( Severe),Weight Loss (Severe) Clinical Problem Acute Disease or Injury Related Malnutrition Etiology severe, acute malnutrition related to inadequate energy intake w/ increased energy needs d/t resp. failure Signs/Symptoms as evidenced by estimated PO intake meeting <75% estimated energy needs > 7 days; unintentional 30.7#/15% wt loss x 2 months Status Active Problem Altered Nutrient-Related Laboratory Values Etiology - Signs/Symptoms - Status Inactive Problem Recommendation Dietitian Recommendations/Changes continue cardiac diet w/ fluid restriction as indicated; may need to consider liberalizing to regular/sodium restricted pending PO intake/resp. status . Will provide vanilla magic cup w/ lunch for additional calories/protein if consumed. Lab / Micro Data Attestation: I reviewed the patient's lab results. Result Diagrams: 01/10/23 03:45 01/11/23 04:45 Labs: Laboratory Results - last 24 hr 01/11/23 04:45: Sodium 139, Potassium 4.7, Chloride 105, Carbon Dioxide 28.0, Anion Gap 6, BUN 37 H, Creatinine 1.08, Estim Creat Clear Calc 54.54, Est GFR (MDRD) Af Amer 85, Est GFR (MDRD) Non-Af 70, BUN/Creatinine Ratio 34.3 H, Glucose 134 H, Calcium 8.6 Micro: Microbiology 01/02/23 23:00 Urine, Clean Catch Legionella Antigen - Final 01/02/23 23:00 Urine, Clean Catch Streptococcus pneumoniae Antigen (M - Final Radiography Diagnostic Testing: Radiology Impression Chest X-Ray 01/10/23 09:44 IMPRESSION: Partial but not yet complete resolution of previously noted opacifications throughout both lung holloway. Continued follow-up recommended to ensure complete resolution. Lungs are underexpanded with stable elevation of the right hemidiaphragm Electronically Signed: Bhargav Farnsworth MD at 11:24 EST Reading Location ID and State: [address] [place] [address] , Service support , Rhythm Strip Rhythm Strip: Sinus Rhythm Rate: 68 Physical Exam Const alert, oriented x3 and no apparent distress General Appearance: cooperative HEENT normocephalic and head/scalp atraumatic Eyes PERRL, EOMs intact bilaterally and conjunctivae normal Neck supple General: trachea midline Chest inspection of chest normal Resp normal respiratory effort Effort and Inspection: actively coughing Auscultation: Negative for rales, rhonchi or wheezes Cardio regular rate and regular rhythm GI normal to inspection, nondistended, normoactive bowel sounds Extremity no clubbing, cyanosis or edema Skin no rashes or lesions noted Neuro oriented x3, CN's II-XII intact bilaterally and moves all extremities Psych cooperative and affect normal Charges/Coding Visit Charges Inpatient E&M: 06386 Subs Hosp L2
--- NOTE | 2023-01-11 07:03 | PN.HOSP_ITS ---
Reason for Visit Reason for Visit: Diagnoses Unspecified protein-calorie malnutrition (01/03/23) Heart failure, unspecified (01/03/23) Interstitial pulmonary disease, unspecified (01/03/23) Acute and chronic respiratory failure with hypoxia (01/03/23) Hypoxemia (01/03/23) Subjective Subjective No new issues. Objective Data Objective Data Vital Signs: Vital Signs Temp Pulse Resp BP Pulse Ox O2 Del Method O2 Flow Rate 36.4 C L 80 18 124/84 H 92 Nasal Cannula 3 01/11/23 04:00 01/11/23 04:00 01/11/23 04:00 01/11/23 04:00 01/11/23 04:00 01/11/23 05:56 01/11/23 00:00 FiO2 50 01/08/23 05:23 Oxygen Flow Rate (L/min) [ 10 AMBULATING with Oxygen #3] Oxygen Flow Rate (L/min) [ 8 AMBULATING with Oxygen #2] Oxygen Flow Rate (L/min) [ 6 AMBULATING with Oxygen #1] Oxygen Flow Rate (L/min) 3 Oxygen Delivery Method Nasal Cannula Weight: 80.1 kg Body Mass Index (BMI) 26.8 Intake & Output: Intake and Output for Last 24 Hours 01/09/23 01/10/23 01/11/23 23:59 23:59 23:59 Intake Total 240 / 240 530 / 560 30 / 30 Output Total 800 / 1050 1075 / 1075 400 / 400 Balance -560 / -810 -545 / -515 -370 / -370 Medical Nutrition Assessment Dietitian: Malnutrition Criteria Met Start: 01/04/23 13:37 Freq: Status: Active Protocol: Document 01/06/23 09:55 AG (Rec: 01/06/23 09:55 [id number]) Nutrition Malnutrition Evidence of Malnutrition Exists Yes Malnutrition (severe): Acute Illness/Injury Evidenced By Suboptimal Energy Intake ( Severe),Weight Loss (Severe) Clinical Problem Acute Disease or Injury Related Malnutrition Etiology severe, acute malnutrition related to inadequate energy intake w/ increased energy needs d/t resp. failure Signs/Symptoms as evidenced by estimated PO intake meeting <75% estimated energy needs > 7 days; unintentional 30.7#/15% wt loss x 2 months Status Active Problem Altered Nutrient-Related Laboratory Values Etiology - Signs/Symptoms - Status Inactive Problem Recommendation Dietitian Recommendations/Changes continue cardiac diet w/ fluid restriction as indicated; may need to consider liberalizing to regular/sodium restricted pending PO intake/resp. status . Will provide vanilla magic cup w/ lunch for additional calories/protein if consumed. Lab / Micro Data Result Diagrams: 01/10/23 03:45 01/11/23 04:45 Labs: Laboratory Results - last 24 hr 01/11/23 04:45: Sodium 139, Potassium 4.7, Chloride 105, Carbon Dioxide 28.0, Anion Gap 6, BUN 37 H, Creatinine 1.08, Estim Creat Clear Calc 54.54, Est GFR (MDRD) Af Amer 85, Est GFR (MDRD) Non-Af 70, BUN/Creatinine Ratio 34.3 H, Glucose 134 H, Calcium 8.6 Micro: Microbiology 01/02/23 23:00 Urine, Clean Catch Legionella Antigen - Final 01/02/23 23:00 Urine, Clean Catch Streptococcus pneumoniae Antigen (M - Final Radiography Diagnostic Testing: Radiology Impression Chest X-Ray 01/10/23 09:44 IMPRESSION: Partial but not yet complete resolution of previously noted opacifications throughout both lung holloway. Continued follow-up recommended to ensure complete resolution. Lungs are underexpanded with stable elevation of the right hemidiaphragm Electronically Signed: Bhargav Farnsworth MD at 11:24 EST Reading Location ID and State: [address] [place] [address] , Service support , Rhythm Strip Rhythm Strip: Sinus Rhythm Rate: 68 Physical Exam Const alert and no apparent distress HEENT head/scalp atraumatic and moist oral mucous membranes Resp normal respiratory effort, no retractions, no use of accessory muscles and clear to auscultation bilaterally Cardio regular rate, regular rhythm, S1 normal heart sound and S2 normal heart sound GI normal to inspection, nondistended, normoactive bowel sounds, soft to palpation, non-tender and non-distended Extremity normal to inspection Assessment & Plan Assessment/Plan (1) Acute and chronic respiratory failure with hypoxia: PLAN: multifactorial 2/2 CHF, pneumonia, asthma Abx dc'd 01/08 on prednisone taper currently on 6 l nc, wean oxygen as tolerated MBS unremarkable home oxygen eval. (2) Congestive heart failure: QUALIFIERS: Heart failure type: other Qualified Code(s): I50.9 - Heart failure, unspecified PLAN: acute HFpEF EF 65% from echo on 01/02 negative 4.7 liters since admission Resume IV furosemide (3) Protein calorie malnutrition: PLAN: severe protein and caloric malnutrition-related to inadequate energy intake with increased energy needs due to respiratory failure as evidenced by estimated p.o. intake meeting less than 75% of estimated energy needs over 7 days and an unintentional 30.7 pound weight loss over 2 months-continue cardiac diet, patient is being provided vanilla Magic cup with lunch for additional calories/protein if consumed. PLAN: Plan Chronic conditions: * chronic [id number]-[id number] is currently on apixaban, he is not currently on any rate limiting medication, heart rate remains controlled at this time * chronic kidney disease-stage IIIa-labs will be monitored, complicates care, medical course, recovery, and prognosis VTE prophylaxis not indicated as pt taking apixaban. Dispostion: TBD. Charges/Coding Visit Charges Inpatient E&M: 56205 Subs Hosp L2
[2023-01-11] MEDS: Multivitamins,Therapeutic Tablet 1 TABLET PO (09:13)
[2023-01-11] MEDS: Furosemide 40 MG Tablet PO (09:13)
[2023-01-11] MEDS: Atorvastatin Calcium 10 MG Tablet 5 MG PO (09:13)
[2023-01-11] MEDS: predniSONE 20 MG Tablet 40 MG PO (09:13)
[2023-01-11] MEDS: APIXABAN 5 MG TABLET PO ×2 (09:13→21:59)
[2023-01-11] MEDS: Topiramate 25 MG Tablet PO (09:14)
[2023-01-11] MEDS: Ezetimibe 10 MG Tablet PO (09:14)
[2023-01-11] MEDS: Montelukast 10 MG Tablet PO (09:14)
[2023-01-11] MEDS: Pantoprazole Sodium 20 MG Tablet PO (09:14)
[2023-01-11] MEDS: guaiFENesin 1,200 MG Tablet 1200 MG PO ×2 (09:14→21:59)
[2023-01-11 09:26] LABS: Pathologist Review Reviewed
[2023-01-11 09:34] LABS: Pathologist Review Reviewed
[2023-01-11] MEDS: Furosemide 40 MG/4 ML Vial IV (17:20)
[2023-01-12] VITALS (10 sets, daily range): BP systolic 101–122; BP diastolic 59–82; PULSE 69–92; RESP 18–37; TEMP 36.4–36.9; O2SAT 82–99; BMI 26.4
[2023-01-12 04:46] LABS: Anion Gap 8 (5-15); BUN 44 mg/dL (7-18); BUN/Creat Ratio 34.9 RATIO (10-20); Calcium,Total 9.2 mg/dL (8.5-10.1); Chloride 101 mmol/L (98-107); Creatinine, Serum 1.26 mg/dL (0.70-1.30); EST Glomerular Filtration Rate 59 mL/min (>60); Est Glom Filt Rate - Afr Amer 71 mL/min (>60); Estimated Creatinine Clearance 46.75 ml/min; Glucose 164 mg/dL (74-106); Potassium 3.5 mmol/L (3.5-5.1); Sodium Level 141 mmol/L (136-145)
--- NOTE | 2023-01-12 07:02 | PN.HOSP_ITS ---
Reason for Visit Reason for Visit: Diagnoses Unspecified protein-calorie malnutrition (01/03/23) Heart failure, unspecified (01/03/23) Interstitial pulmonary disease, unspecified (01/03/23) Acute and chronic respiratory failure with hypoxia (01/03/23) Hypoxemia (01/03/23) Subjective Subjective No new complaints. Still requiring greater than 6liters oxygen w activity. Objective Data Objective Data Vital Signs: Vital Signs Temp Pulse Resp BP Pulse Ox O2 Del Method O2 Flow Rate 36.4 C L 87 18 114/79 95 Nasal Cannula 2 01/12/23 05:00 01/12/23 05:00 01/12/23 05:00 01/12/23 05:00 01/12/23 05:00 01/12/23 05:00 01/12/23 05:00 FiO2 50 01/08/23 05:23 Oxygen Flow Rate (L/min) [ 8 AMBULATING with Oxygen #3] Oxygen Flow Rate (L/min) [ 6 AMBULATING with Oxygen #2] Oxygen Flow Rate (L/min) [ 3 AMBULATING with Oxygen #1] Oxygen Flow Rate (L/min) 2 Oxygen Delivery Method Nasal Cannula Weight: 79 kg Body Mass Index (BMI) 26.4 Intake & Output: Intake and Output for Last 24 Hours 01/10/23 01/11/23 01/12/23 23:59 23:59 23:59 Intake Total 530 / 560 30 / 270 340 / 340 Output Total 1075 / 1075 1000 / 1150 350 / 350 Balance -545 / -515 -970 / -880 -10 / -10 Medical Nutrition Assessment Dietitian: Malnutrition Criteria Met Start: 01/04/23 13:37 Freq: Status: Active Protocol: Document 01/06/23 09:55 AG (Rec: 01/06/23 09:55 AG [id number]) Nutrition Malnutrition Evidence of Malnutrition Exists Yes Malnutrition (severe): Acute Illness/Injury Evidenced By Suboptimal Energy Intake ( Severe),Weight Loss (Severe) Clinical Problem Acute Disease or Injury Related Malnutrition Etiology severe, acute malnutrition related to inadequate energy intake w/ increased energy needs d/t resp. failure Signs/Symptoms as evidenced by estimated PO intake meeting <75% estimated energy needs > 7 days; unintentional 30.7#/15% wt loss x 2 months Status Active Problem Altered Nutrient-Related Laboratory Values Etiology - Signs/Symptoms - Status Inactive Problem Recommendation Dietitian Recommendations/Changes continue cardiac diet w/ fluid restriction as indicated; may need to consider liberalizing to regular/sodium restricted pending PO intake/resp. status . Will provide vanilla magic cup w/ lunch for additional calories/protein if consumed. Lab / Micro Data Result Diagrams: 01/10/23 03:45 01/12/23 04:20 Labs: Laboratory Results - last 24 hr 01/09/23 04:36: Diff Path Review Reviewed 01/10/23 03:45: Diff Path Review Reviewed 01/12/23 04:20: Sodium 141, Potassium 3.5, Chloride 101, Carbon Dioxide 32.0, Anion Gap 8, BUN 44 H, Creatinine 1.26, Estim Creat Clear Calc 46.75, Est GFR (MDRD) Af Amer 71, Est GFR (MDRD) Non-Af 59 L, BUN/Creatinine Ratio 34.9 H, Glucose 164 H, Calcium 9.2 Micro: Microbiology 01/02/23 23:00 Urine, Clean Catch Legionella Antigen - Final 01/02/23 23:00 Urine, Clean Catch Streptococcus pneumoniae Antigen (M - Final Rhythm Strip Rhythm Strip: Sinus Rhythm Rate: 68 Physical Exam Const alert and no apparent distress Resp normal respiratory effort, no retractions, no use of accessory muscles and clear to auscultation bilaterally Cardio regular rate, regular rhythm, S1 normal heart sound and S2 normal heart sound GI normal to inspection, nondistended, normoactive bowel sounds, soft to palpation, non-tender and non-distended Extremity normal to inspection Assessment & Plan Assessment/Plan (1) Acute and chronic respiratory failure with hypoxia: PLAN: multifactorial 2/2 CHF, pneumonia, asthma Abx dc'd 01/08 on prednisone taper currently on 6 l nc, wean oxygen as tolerated MBS unremarkable continue to encourage IS (2) Congestive heart failure: QUALIFIERS: Heart failure type: other Qualified Code(s): I50.9 - Heart failure, unspecified PLAN: acute HFpEF EF 65% from echo on 01/02 negative 4.7 liters since admission continue IV furosemide (3) Protein calorie malnutrition: PLAN: severe protein and caloric malnutrition-related to inadequate energy intake with increased energy needs due to respiratory failure as evidenced by estimated p.o. intake meeting less than 75% of estimated energy needs over 7 days and an unintentional 30.7 pound weight loss over 2 months-continue cardiac diet, patient is being provided vanilla Magic cup with lunch for additional calories/protein if consumed. PLAN: Plan Chronic conditions: * chronic Q-mir-flafhrw is currently on apixaban, he is not currently on any rate limiting medication, heart rate remains controlled at this time * chronic kidney disease-stage IIIa-labs will be monitored, complicates care, medical course, recovery, and prognosis VTE prophylaxis not indicated as pt taking apixaban. Dispostion: TBD. Charges/Coding Visit Charges Inpatient E&M: 83401 Subs Hosp L2
[2023-01-12] MEDS: predniSONE 20 MG Tablet 40 MG PO (07:37)
[2023-01-12] MEDS: Multivitamins,Therapeutic Tablet 1 TABLET PO (07:37)
[2023-01-12] MEDS: APIXABAN 5 MG TABLET PO ×2 (09:21→21:26)
[2023-01-12] MEDS: guaiFENesin 1,200 MG Tablet 1200 MG PO ×2 (09:21→21:26)
[2023-01-12] MEDS: Atorvastatin Calcium 10 MG Tablet 5 MG PO (09:21)
[2023-01-12] MEDS: Montelukast 10 MG Tablet PO (09:22)
[2023-01-12] MEDS: Ezetimibe 10 MG Tablet PO (09:22)
[2023-01-12] MEDS: Pantoprazole Sodium 20 MG Tablet PO (09:22)
[2023-01-12] MEDS: Topiramate 25 MG Tablet PO (09:22)
[2023-01-12] MEDS: Furosemide 40 MG/4 ML Vial IV ×2 (10:11→18:25)
[2023-01-13 05:32] LABS: Anion Gap 7 (5-15); BUN 44 mg/dL (7-18); BUN/Creat Ratio 31.7 RATIO (10-20); Calcium,Total 8.8 mg/dL (8.5-10.1); Chloride 99 mmol/L (98-107); Creatinine, Serum 1.39 mg/dL (0.70-1.30); EST Glomerular Filtration Rate 53 mL/min (>60); Est Glom Filt Rate - Afr Amer 64 mL/min (>60); Estimated Creatinine Clearance 42.37 ml/min; Glucose 152 mg/dL (74-106); Potassium 3.4 mmol/L (3.5-5.1); Sodium Level 139 mmol/L (136-145)
[2023-01-13 05:40] VITALS: BMI 26.4
--- NOTE | 2023-01-13 07:09 | PN.HOSP_ITS ---
Reason for Visit Reason for Visit: Diagnoses Unspecified protein-calorie malnutrition (01/03/23) Heart failure, unspecified (01/03/23) Interstitial pulmonary disease, unspecified (01/03/23) Acute and chronic respiratory failure with hypoxia (01/03/23) Hypoxemia (01/03/23) Subjective Subjective Breathing fine. Was ambulated and pulse ox was 89% on 5 L, however, his heart rate in the 160s. Objective Data Objective Data Vital Signs: Vital Signs Temp Pulse Resp BP Pulse Ox O2 Del Method O2 Flow Rate 36.6 C 83 18 122/61 H 93 Nasal Cannula 4 01/12/23 22:00 01/12/23 22:00 01/12/23 22:00 01/12/23 22:00 01/12/23 22:00 01/12/23 22:00 01/12/23 22:00 FiO2 50 01/08/23 05:23 Oxygen Flow Rate (L/min) [ 8 AMBULATING with Oxygen #3] Oxygen Flow Rate (L/min) [ 6 AMBULATING with Oxygen #2] Oxygen Flow Rate (L/min) [ 6 AMBULATING with Oxygen #1] Oxygen Flow Rate (L/min) 4 Oxygen Delivery Method Nasal Cannula Weight: 78.7 kg Body Mass Index (BMI) 26.4 Intake & Output: Intake and Output for Last 24 Hours 01/11/23 01/12/23 01/13/23 23:59 23:59 23:59 Intake Total 30 / 270 790 / 790 Output Total 1000 / 1150 1600 / 1725 325 / 325 Balance -970 / -880 -810 / -935 -325 / -325 Medical Nutrition Assessment Dietitian: Malnutrition Criteria Met Start: 01/04/23 13:37 Freq: Status: Active Protocol: Document 01/06/23 09:55 AG (Rec: 01/06/23 09:55 AG [id number]) Nutrition Malnutrition Evidence of Malnutrition Exists Yes Malnutrition (severe): Acute Illness/Injury Evidenced By Suboptimal Energy Intake ( Severe),Weight Loss (Severe) Clinical Problem Acute Disease or Injury Related Malnutrition Etiology severe, acute malnutrition related to inadequate energy intake w/ increased energy needs d/t resp. failure Signs/Symptoms as evidenced by estimated PO intake meeting <75% estimated energy needs > 7 days; unintentional 30.7#/15% wt loss x 2 months Status Active Problem Altered Nutrient-Related Laboratory Values Etiology - Signs/Symptoms - Status Inactive Problem Recommendation Dietitian Recommendations/Changes continue cardiac diet w/ fluid restriction as indicated; may need to consider liberalizing to regular/sodium restricted pending PO intake/resp. status . Will provide vanilla magic cup w/ lunch for additional calories/protein if consumed. Lab / Micro Data Result Diagrams: 01/10/23 03:45 01/13/23 05:08 Labs: Laboratory Results - last 24 hr 01/13/23 05:08: Sodium 139, Potassium 3.4 L, Chloride 99, Carbon Dioxide 33.0 H, Anion Gap 7, BUN 44 H, Creatinine 1.39 H, Estim Creat Clear Calc 42.37, Est GFR (MDRD) Af Amer 64, Est GFR (MDRD) Non-Af 53 L, BUN/Creatinine Ratio 31.7 H, Glucose 152 H, Calcium 8.8 Micro: Microbiology 01/02/23 23:00 Urine, Clean Catch Legionella Antigen - Final 01/02/23 23:00 Urine, Clean Catch Streptococcus pneumoniae Antigen (M - Final Rhythm Strip Rhythm Strip: Sinus Rhythm Rate: 68 Physical Exam Const alert and no apparent distress HEENT head/scalp atraumatic and moist oral mucous membranes Resp normal respiratory effort, no retractions, no use of accessory muscles and clear to auscultation bilaterally Cardio regular rate, regular rhythm, S1 normal heart sound and S2 normal heart sound GI normal to inspection, nondistended, normoactive bowel sounds Assessment & Plan Assessment/Plan (1) Acute and chronic respiratory failure with hypoxia: PLAN: multifactorial 2/2 CHF, pneumonia, asthma Abx dc'd 01/08 on prednisone taper currently on 6 l nc, wean oxygen as tolerated MBS unremarkable continue to encourage IS Still requiring oxygen. Even though he is on 5 L, his heart rate in the 160s. Will monitor the patient for another day prior to discharge. (2) Congestive heart failure: QUALIFIERS: Heart failure type: other Qualified Code(s): I50.9 - Heart failure, unspecified PLAN: acute HFpEF EF 65% from echo on 01/02 Change furosemide to oral. (3) Protein calorie malnutrition: PLAN: severe protein and caloric malnutrition-related to inadequate energy intake with increased energy needs due to respiratory failure as evidenced by estimated p.o. intake meeting less than 75% of estimated energy needs over 7 days and an unintentional 30.7 pound weight loss over 2 months-continue cardiac diet, patient is being provided vanilla Magic cup with lunch for additional calories/protein if consumed. PLAN: Plan Chronic conditions: * chronic [id number] is currently on apixaban, he is not currently on any rate limiting medication, heart rate remains controlled at this time * chronic kidney disease-stage IIIa-labs will be monitored, complicates care, medical course, recovery, and prognosis VTE prophylaxis not indicated as pt taking apixaban. Disposition: TBD. Case discussed with the patient's at bedside. Charges/Coding Visit Charges Inpatient E&M: 66369 Subs Hosp L2
[2023-01-13 07:35] VITALS: O2SAT 94
[2023-01-13 08:00] VITALS: BP 113/66; PULSE 81; RESP 20; TEMP 36.1; O2SAT 94
[2023-01-13] MEDS: Multivitamins,Therapeutic Tablet 1 TABLET PO (08:28)
[2023-01-13] MEDS: Atorvastatin Calcium 10 MG Tablet 5 MG PO (10:07)
[2023-01-13] MEDS: guaiFENesin 1,200 MG Tablet 1200 MG PO ×2 (10:07→21:48)
[2023-01-13] MEDS: APIXABAN 5 MG TABLET PO ×2 (10:07→21:48)
[2023-01-13] MEDS: 0.9% Saline Lock 10 ML Syringe IV (10:07)
[2023-01-13] MEDS: Topiramate 25 MG Tablet PO (10:08)
[2023-01-13] MEDS: Ezetimibe 10 MG Tablet PO (10:08)
[2023-01-13] MEDS: Pantoprazole Sodium 20 MG Tablet PO (10:08)
[2023-01-13] MEDS: Montelukast 10 MG Tablet PO (10:08)
[2023-01-13] MEDS: Furosemide 40 MG Tablet PO (10:14)
[2023-01-13 11:15] VITALS: O2SAT 90
[2023-01-13 11:23] VITALS: O2SAT 89; O2SAT 90
[2023-01-13 14:00] VITALS: BP 133/98; PULSE 88; RESP 20; TEMP 35.8; O2SAT 97
[2023-01-13] MEDS: predniSONE 20 MG Tablet 40 MG PO (14:35)
[2023-01-13] MEDS: Potassium Chloride Oral Tablet 20 MEQ 40 MEQ PO (14:35)
[2023-01-13 20:00] VITALS: BP 95/64; PULSE 91; RESP 20; TEMP 36.3; O2SAT 96
[2023-01-14] VITALS (10 sets, daily range): BP systolic 110–133; BP diastolic 58–118; PULSE 74–128; RESP 18–37; TEMP 36.3–36.9; O2SAT 4–98; BMI 26.9
[2023-01-14 05:36] LABS: Anion Gap 7 (5-15); BUN 38 mg/dL (7-18); BUN/Creat Ratio 29.9 RATIO (10-20); Chloride 100 mmol/L (98-107); Creatinine, Serum 1.27 mg/dL (0.70-1.30); EST Glomerular Filtration Rate 58 mL/min (>60); Est Glom Filt Rate - Afr Amer 71 mL/min (>60); Estimated Creatinine Clearance 46.38 ml/min; Glucose 208 mg/dL (74-106); Potassium 4.3 mmol/L (3.5-5.1); Sodium Level 137 mmol/L (136-145)
--- NOTE | 2023-01-14 07:03 | PCM.PN.HOSP ---
Reason for Visit Reason for Visit: Diagnoses Unspecified protein-calorie malnutrition (01/03/23) Heart failure, unspecified (01/03/23) Interstitial pulmonary disease, unspecified (01/03/23) Acute and chronic respiratory failure with hypoxia (01/03/23) Hypoxemia (01/03/23) Subjective Subjective Asks about going home. Objective Data Objective Data Vital Signs: Vital Signs Temp Pulse Resp BP Pulse Ox O2 Del Method O2 Flow Rate 36.4 C L 74 25 H 110/67 96 Nasal Cannula 4 01/14/23 02:00 01/14/23 02:00 01/14/23 02:00 01/14/23 02:00 01/14/23 02:00 01/14/23 02:45 01/14/23 02:45 FiO2 50 01/08/23 05:23 Oxygen Flow Rate (L/min) [At 4 REST on Room Air] Oxygen Flow Rate (L/min) [ 8 AMBULATING with Oxygen #3] Oxygen Flow Rate (L/min) [ 6 AMBULATING with Oxygen #2] Oxygen Flow Rate (L/min) [ 5 AMBULATING with Oxygen #1] Oxygen Flow Rate (L/min) 4 Oxygen Delivery Method Nasal Cannula Weight: 80.2 kg Body Mass Index (BMI) 26.9 Intake & Output: Intake and Output for Last 24 Hours 01/12/23 01/13/23 01/14/23 23:59 23:59 23:59 Intake Total 790 / 790 240 / 240 Output Total 1600 / 1725 725 / 1050 325 / 325 Balance -810 / -935 -485 / -810 -325 / -325 Medical Nutrition Assessment Dietitian: Malnutrition Criteria Met Start: 01/04/23 13:37 Freq: Status: Active Protocol: Document 01/13/23 10:05 LO (Rec: 01/13/23 10:05 LO Desktop) Nutrition Malnutrition Evidence of Malnutrition Exists Yes Malnutrition (severe): Acute Illness/Injury Evidenced By Suboptimal Energy Intake ( Severe),Weight Loss (Severe) Clinical Problem Acute Disease or Injury Related Malnutrition Etiology severe, acute malnutrition related to inadequate energy intake w/ increased energy needs d/t resp. 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 status. will discontinue vanilla magic cup w/ lunch RD will order Ensure Pudding with lunch to provide supplemental energy Lab / Micro Data Result Diagrams: 01/10/23 03:45 01/14/23 05:15 Labs: Laboratory Results - last 24 hr 01/14/23 05:15: Sodium 137, Potassium 4.3, Chloride 100, Carbon Dioxide 30.0, Anion Gap 7, BUN 38 H, Creatinine 1.27, Estim Creat Clear Calc 46.38, Est GFR (MDRD) Af Amer 71, Est GFR (MDRD) Non-Af 58 L, BUN/Creatinine Ratio 29.9 H, Glucose 208 H, Calcium 9.0 Micro: Microbiology 01/02/23 23:00 Urine, Clean Catch Legionella Antigen - Final 01/02/23 23:00 Urine, Clean Catch Streptococcus pneumoniae Antigen (M - Final Rhythm Strip Rhythm Strip: Sinus Rhythm Rate: 68 Physical Exam Const alert and no apparent distress Resp normal respiratory effort and no retractions Cardio regular rate, regular rhythm, S1 normal heart sound and S2 normal heart sound GI normal to inspection, nondistended, normoactive bowel sounds and soft to palpation Assessment & Plan Assessment/Plan (1) Acute and chronic respiratory failure with hypoxia: PLAN: multifactorial 2/2 CHF, pneumonia, asthma Abx dc'd 01/08 on prednisone taper currently on 6 l nc, wean oxygen as tolerated MBS unremarkable continue to encourage IS Still requiring oxygen. When patient got up and ambulated with 8 L, his heart rate in the 170s. (2) Congestive heart failure: QUALIFIERS: Heart failure type: other Qualified Code(s): I50.9 - Heart failure, unspecified PLAN: acute HFpEF EF 65% from echo on 01/02 Change furosemide to oral. (3) Protein calorie malnutrition: PLAN: severe protein and caloric malnutrition-related to inadequate energy intake with increased energy needs due to respiratory failure as evidenced by estimated p.o. intake meeting less than 75% of estimated energy needs over 7 days and an unintentional 30.7 pound weight loss over 2 months-continue cardiac diet, patient is being provided vanilla Magic cup with lunch for additional calories/protein if consumed. PLAN: Plan Chronic conditions: chronic [id number] is currently on apixaban, he is not currently on any rate limiting medication, heart rate remains controlled at this time chronic kidney disease-stage IIIa-labs will be monitored, complicates care, medical course, recovery, and prognosis VTE prophylaxis not indicated as pt taking apixaban. Disposition: TBD. Case discussed with the patient's at bedside. Charges/Coding Visit Charges Inpatient E&M: 60676 Subs Hosp L2
[2023-01-14] MEDS: Ezetimibe 10 MG Tablet PO (10:10)
[2023-01-14] MEDS: Multivitamins,Therapeutic Tablet 1 TABLET PO (10:10)
[2023-01-14] MEDS: Atorvastatin Calcium 10 MG Tablet 5 MG PO (10:11)
[2023-01-14] MEDS: guaiFENesin 1,200 MG Tablet 1200 MG PO ×2 (10:11→21:22)
[2023-01-14] MEDS: predniSONE 20 MG Tablet 40 MG PO (10:11)
[2023-01-14] MEDS: Montelukast 10 MG Tablet PO (10:11)
[2023-01-14] MEDS: Furosemide 40 MG Tablet PO (10:11)
[2023-01-14] MEDS: APIXABAN 5 MG TABLET PO ×2 (10:12→21:22)
[2023-01-14] MEDS: Topiramate 25 MG Tablet PO (10:12)
[2023-01-14] MEDS: Pantoprazole Sodium 20 MG Tablet PO (10:22)
--- NOTE | 2023-01-14 10:28 | CASEMGMT ---
Addendum entered by Inge Davis 01/14/23 17:48: Per Dr Thao, he anticipates pt will be ready for discharge over the weekend if pt requiring less 10 l/m O2 or less w/exertion and does not become too tachy w/ambulation. Call placed to [facility] @ [facility] to inquire about availability of concentrators and portable oxygen tanks for higher O2 needs. Per [facility], they have had limited supply of concentrators that go up to 10 L/M and she is not sure if they will have one available over the weekend. She also states, it is not recommended for their 10 L concentrators to be used if pt is requiring more than 7 L/M. She states the following, if pt is discharged over the weekend: If pt needs 6 or 7 l/m O2 @ discharge w/exertion to have the on-call backhaul driver paged. He will then check their stock and see if they have a 10 L concentrator available. She states if there are any questions or concerns to ask the backhaul driver to contact her ([facility]) personally. If pt requires more than 7 l/m then pt will need to get his oxygen from another provider. [facility] states the regulator pt has on his portable O2 tank goes up to 15 l/m. If pt requires 5 l/m or less w/exertion @ d/c, then to bring in portable O2 tank to go home on. Original Note: VAIBHAV MAN NOTE: VAIBHAV MAN to room. Pt sitting up in chair. Discussed discharge planning w/pt. He states he feels safe to discharge home with C once he is medically ready to discharge from the hospital. He confirms his can bring in his portable O2 tank @ d/c. He denies having other discharge planning needs or concerns at this time. 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
[2023-01-14] MEDS: Benzonatate 100 MG Capsule 200 MG PO (21:22)
[2023-01-15] VITALS (9 sets, daily range): BP systolic 112–120; BP diastolic 52–83; PULSE 81–87; RESP 16–18; TEMP 35.8–36.8; O2SAT 84–99; BMI 26.1
[2023-01-15 08:08] LABS: Anion Gap 8 (5-15); BUN 33 mg/dL (7-18); BUN/Creat Ratio 24.4 RATIO (10-20); Calcium,Total 9.3 mg/dL (8.5-10.1); Chloride 99 mmol/L (98-107); Creatinine, Serum 1.35 mg/dL (0.70-1.30); EST Glomerular Filtration Rate 54 mL/min (>60); Est Glom Filt Rate - Afr Amer 66 mL/min (>60); Estimated Creatinine Clearance 43.63 ml/min; Glucose 164 mg/dL (74-106); Potassium 4.4 mmol/L (3.5-5.1); Sodium Level 137 mmol/L (136-145)
[2023-01-15] MEDS: APIXABAN 5 MG TABLET PO (08:11)
[2023-01-15] MEDS: predniSONE 20 MG Tablet 40 MG PO (08:11)
[2023-01-15] MEDS: Multivitamins,Therapeutic Tablet 1 TABLET PO (08:11)
[2023-01-15] MEDS: Pantoprazole Sodium 20 MG Tablet PO (08:11)
[2023-01-15] MEDS: Furosemide 40 MG Tablet PO (08:12)
[2023-01-15] MEDS: Atorvastatin Calcium 10 MG Tablet 5 MG PO (08:12)
[2023-01-15] MEDS: guaiFENesin 1,200 MG Tablet 1200 MG PO (08:12)
[2023-01-15] MEDS: Montelukast 10 MG Tablet PO (08:12)
[2023-01-15] MEDS: Topiramate 25 MG Tablet PO (08:13)
[2023-01-15] MEDS: Ezetimibe 10 MG Tablet PO (08:13)
--- NOTE | 2023-01-15 08:24 | PCM.PN.HOSP ---
Reason for Visit Reason for Visit: Diagnoses Unspecified protein-calorie malnutrition (01/03/23) Heart failure, unspecified (01/03/23) Interstitial pulmonary disease, unspecified (01/03/23) Acute and chronic respiratory failure with hypoxia (01/03/23) Hypoxemia (01/03/23) Subjective Subjective Feels excellent Objective Data Objective Data Vital Signs: Vital Signs Temp Pulse Resp BP Pulse Ox O2 Del Method O2 Flow Rate 36.8 C 84 18 120/83 H 92 Nasal Cannula 3 01/15/23 08:10 01/15/23 08:10 01/15/23 08:10 01/15/23 08:10 01/15/23 08:10 01/15/23 08:10 01/15/23 08:10 FiO2 50 01/08/23 05:23 Oxygen Flow Rate (L/min) [At 4 REST with Oxygen] Oxygen Flow Rate (L/min) [At 4 REST on Room Air] Oxygen Flow Rate (L/min) [ 8 AMBULATING with Oxygen #3] Oxygen Flow Rate (L/min) [ 89 AMBULATING with Oxygen #2] Oxygen Flow Rate (L/min) [ 4 AMBULATING with Oxygen #1] Oxygen Flow Rate (L/min) 3 Oxygen Delivery Method Nasal Cannula Weight: 77.9 kg Body Mass Index (BMI) 26.1 Intake & Output: Intake and Output for Last 24 Hours 01/13/23 01/14/23 01/15/23 23:59 23:59 23:59 Intake Total 240 / 240 240 / 240 Output Total 725 / 1050 750 / 750 460 / 460 Balance -485 / -810 -510 / -510 -460 / -460 Medical Nutrition Assessment Dietitian: Malnutrition Criteria Met Start: 01/04/23 13:37 Freq: Status: Active Protocol: Document 01/13/23 10:05 LO (Rec: 01/13/23 10:05 LO Desktop) Nutrition Malnutrition Evidence of Malnutrition Exists Yes Malnutrition (severe): Acute Illness/Injury Evidenced By Suboptimal Energy Intake ( Severe),Weight Loss (Severe) Clinical Problem Acute Disease or Injury Related Malnutrition Etiology severe, acute malnutrition related to inadequate energy intake w/ increased energy needs d/t resp. 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 status. will discontinue vanilla magic cup w/ lunch RD will order Ensure Pudding with lunch to provide supplemental energy Lab / Micro Data Result Diagrams: 01/10/23 03:45 01/15/23 05:58 Labs: Laboratory Results - last 24 hr 01/15/23 05:58: Sodium 137, Potassium 4.4, Chloride 99, Carbon Dioxide 30.0, Anion Gap 8, BUN 33 H, Creatinine 1.35 H, Estim Creat Clear Calc 43.63, Est GFR (MDRD) Af Amer 66, Est GFR (MDRD) Non-Af 54 L, BUN/Creatinine Ratio 24.4 H, Glucose 164 H, Calcium 9.3 Micro: Microbiology 01/02/23 23:00 Urine, Clean Catch Legionella Antigen - Final 01/02/23 23:00 Urine, Clean Catch Streptococcus pneumoniae Antigen (M - Final Rhythm Strip Rhythm Strip: Sinus Rhythm Rate: 68 Physical Exam Const alert and no apparent distress Resp normal respiratory effort, no retractions, no use of accessory muscles and clear to auscultation bilaterally Cardio regular rate, regular rhythm, S1 normal heart sound and S2 normal heart sound GI normal to inspection, nondistended, normoactive bowel sounds and soft to palpation Assessment & Plan Assessment/Plan (1) Acute and chronic respiratory failure with hypoxia: PLAN: multifactorial 2/2 CHF, pneumonia, asthma Abx dc'd 01/08 on prednisone taper currently on 6 l nc, wean oxygen as tolerated MBS unremarkable continue to encourage IS Ambulated and was 90% with activity on 9 L. Heart rate did go up to the 130s but patient felt better. (2) Congestive heart failure: QUALIFIERS: Heart failure type: other Qualified Code(s): I50.9 - Heart failure, unspecified PLAN: acute HFpEF EF 65% from echo on 01/02 Change furosemide to oral. (3) Protein calorie malnutrition: PLAN: severe protein and caloric malnutrition-related to inadequate energy intake with increased energy needs due to respiratory failure as evidenced by estimated p.o. intake meeting less than 75% of estimated energy needs over 7 days and an unintentional 30.7 pound weight loss over 2 months-continue cardiac diet, patient is being provided vanilla Magic cup with lunch for additional calories/protein if consumed. PLAN: Plan Chronic conditions: chronic [id number] is currently on apixaban, he is not currently on any rate limiting medication, heart rate remains controlled at this time chronic kidney disease-stage IIIa-labs will be monitored, complicates care, medical course, recovery, and prognosis VTE prophylaxis not indicated as pt taking apixaban. Case discussed with the patient's in the hallway today. Discharge home with home care.
--- NOTE | 2023-01-15 11:21 | NURSING ---
Abmbulatory pulse ox completed, patient was 87% with ambulation on 8L NC, next O2 level with portable tank 15L so not tested above 8L NC. Heart rate elevated into the 140's with ambulation. CM notified
--- NOTE | 2023-01-15 12:33 | DCINST_ITS ---
Discharge Instructions Diet Discharge Diet: 6 Cup Fluid Restriction and 2000 mg Sodium Diet Dressing / Incision Call your doctor if you observe: Shortness of breath Follow Up Care Test Results: Test results from this visit will be discussed in further detail at your follow- up appointment, if applicable. Discharge Plan Admission Admit Date/Time: 01/03/23 07:38 Primary Reason for Your Visit: acute on chronic hypoxic respiratory failure. Attending Provider: Tahir Thao Primary Care Provider: Rajeev Fry Consulting Providers: Ching Sadler ; Tino Lindsey ; Shane Montiel Discharge Orders/Prescriptions Prescriptions: New furosemide 40 mg Tablet 40 mg PO DAILY Qty: 30 0RF prednisone 10 mg tablet 10 mg PO DAILY Qty: 22 0RF Rx Instructions: 4 tabs daily for 1 days, then 3 tabs daily for 3 days, then 2 tabs daily for 3 days, then 1 tab daily for 3 days Continued fluticasone propionate 50 mcg/actuation spray,suspension 1 spray intranasal DAILY Rx Instructions: administer into each nostril omeprazole 20 mg capsule,delayed release(DR/EC) 20 mg PO DAILY montelukast [Singulair] 10 mg tablet 10 mg PO DAILY ezetimibe-simvastatin [Vytorin 10-10] 10-10 mg tablet 1 tab PO DAILY multivitamin [Multiple Vitamins] Tablet 1 tab PO DAILY Label Comments: centrum silver omega-3 fatty acids [Fish Oil Concentrate] 1,000 mg capsule 3,000 mg PO DAILY cholecalciferol (vitamin D3) 50 mcg (2,000 unit) tablet,chewable 50 mcg PO DAILY magnesium citrate 100 mg capsule 100 mg PO DAILY coenzyme Q10 100 mg capsule 100 mg PO DAILY Label Comments: COQ10 albuterol sulfate 2.5 mg /3 mL (0.083 %) solution for nebulization 2.5 mg inhalation Q4H PRN (Reason: shortness of breath or wheezing) Qty: 180 3RF Rx Instructions: R05 Chronic Cough topiramate 25 mg tablet 25 mg PO DAILY Eliquis 5 mg tablet 5 mg PO BID Advair HFA 230-21 mcg/actuation HFA aerosol inhaler 2 puff inhalation BID Qty: 3 3RF benzonatate 200 mg capsule 200 mg PO TID PRN (Reason: cough) Qty: 90 0RF guaifenesin 1,200 mg tablet extended release 12hr 1,200 mg PO Q12H Qty: 60 6RF Discontinued amlodipine [Norvasc] 5 mg tablet 5 mg PO DAILY Referrals / Follow Up: [facility] [Provider Group] - Within 1 Month Rajeev Fry DO [Primary Care Provider] - Within 2 Weeks Disposition Disposition (needs filled in before D/C Order can be placed): Home Health Service
--- NOTE | 2023-01-15 12:41 | DS.PCM_ITS ---
Providers Date of Admission: 01/03/23 Primary Care Physician: Dr. Rajeev Fry, Consultations 01/02/23 22:07 Consult: Mixer Blender / Pulmonary Medicine Routine Consulting Provider: Tino Lindsey Reason for Consult: worsening cough EMERGENT Consult: No MD Notified: Yes Date Notified: 01/02/23 Time Notified: 22:08 Method of Notification: Text Reason For Visit: COVID PNEUMONIA Diagnosis Discharge Diagnosis (1) Acute and chronic respiratory failure with hypoxia: Status: Chronic Code(s): J96.21 - Acute and chronic respiratory failure with hypoxia Plan: multifactorial 2/2 CHF, asthma, ILD Abx dc'd 01/08 on prednisone taper currently on 6 l nc, wean oxygen as tolerated MBS unremarkable continue to encourage IS Ambulated and was 90% with activity on 9 L. Heart rate did go up to the 130s but patient felt better. (2) Congestive heart failure: Status: Acute Code(s): I50.9 - Heart failure, unspecified Qualifiers: Heart failure type: other Qualified Code(s): I50.9 - Heart failure, unspecified Plan: acute HFpEF EF 65% from echo on 01/02 Change furosemide to oral. (3) Protein calorie malnutrition: Status: Acute Code(s): E46 - Unspecified protein-calorie malnutrition Plan: severe protein and caloric malnutrition-related to inadequate energy intake with increased energy needs due to respiratory failure as evidenced by estimated p.o. intake meeting less than 75% of estimated energy needs over 7 days and an unintentional 30.7 pound weight loss over 2 months-continue cardiac diet, patient is being provided vanilla Magic cup with lunch for additional calories/protein if consumed. Plan Chronic conditions: * chronic E-pek-[id number] is currently on apixaban, he is not currently on any rat e limiting medication, heart rate remains controlled at this time * chronic kidney disease-stage IIIa-labs will be monitored, complicates care, medical course, recovery, and prognosis VTE prophylaxis not indicated as pt taking apixaban. Case discussed with the patient's in the hallway today. Discharge home with home care. Medications at Discharge Home Medications cholecalciferol (vitamin D3) 50 mcg (2,000 unit) chewable tablet 50 mcg PO DAILY 07/08/21 coenzyme Q10 100 mg capsule 100 mg PO DAILY 07/08/21 ezetimibe 10 mg-simvastatin 10 mg tablet (Vytorin) 1 tab PO DAILY 07/08/21 fluticasone propionate 50 mcg/actuation nasal spray,suspension 1 spray intranasal DAILY 07/08/21 magnesium citrate 100 mg capsule 100 mg PO DAILY 07/08/21 montelukast 10 mg tablet (Singulair) 10 mg PO DAILY 07/08/21 multivitamin (Multiple Vitamins tablet) 1 tab PO DAILY 07/08/21 omega-3 fatty acids 1,000 mg capsule (Fish Oil Concentrate) 3,000 mg PO DAILY 07/08/21 omeprazole 20 mg capsule,delayed release 20 mg PO DAILY 07/08/21 albuterol sulfate 2.5 mg/3 mL (0.083 %) solution for nebulization 2.5 mg (3 mL) inhalation Q4H PRN shortness of breath or wheezing #180 mL 05/20/22 topiramate 25 mg tablet 25 mg PO DAILY 11/09/22 fluticasone propionate 230 mcg-salmeterol 21 mcg/actuation HFA inhaler (Advair HFA) 2 puff inhalation BID #3 ea 12/08/22 benzonatate 200 mg capsule 200 mg PO TID PRN cough #90 caps 12/10/22 guaifenesin 1,200 mg tablet, extended release 12 hr 1,200 mg PO Q12H #60 tabs 12/10/22 apixaban 5 mg tablet (Eliquis) 5 mg PO BID Check with primary doctor 12/27/22 furosemide 40 mg tablet 40 mg PO DAILY #30 tabs 01/15/23 prednisone 10 mg tablet 10 mg PO DAILY #22 tabs 01/15/23 Hospital Course Operations None Procedures 2-D Echocardiogram Summary of Care Provided Minutes Spent on Discharge: 32 Medical Records Data Medical Nutrition Assessment Dietitian: Malnutrition Criteria Met Start: 01/04/23 13: 37 Freq: Status: Active Protocol: Document 01/13/23 10:05 LO (Rec: 01/13/23 10:05 [email or web address] Desktop) Nutrition Malnutrition Evidence of Malnutrition Exists Yes Malnutrition (severe): Acute Illness/Injury Evidenced By Suboptimal Energy Intake ( Severe),Weight Loss (Severe) Clinical Problem Acute Disease or Injury Related Malnutrition Etiology severe, acute malnutrition related to inadequate energy intake w/ increased energy needs d/t resp. failure Signs/Symptoms as evidenced by estimated PO intake meeting <75% estimated energy needs > 7 days bell captain; unintentional 30.7#/15% wt loss x 2 months bell captain Status Active Problem Altered Nutrient-Related Laboratory Values Status Inactive Problem Recommendation Dietitian Recommendations/Changes continue cardiac diet w/ fluid restriction as indicated; may need to consider liberalizing to regular/sodium restricted pending PO intake/ resp. status. will discontinue vanilla magic cup w/ lunch RD will order Ensure Pudding with lunch to provide supplemental energy Weight / BMI Weight Weight: 77.9 kg Body Mass Index (BMI) 26.1 ABG / Lab / Microbiology Data Result Diagrams: 01/10/23 03:45 01/15/23 05:58 Laboratory: Laboratory Results - last 24 hr 01/15/23 05:58: Sodium 137, Potassium 4.4, Chloride 99, Carbon Dioxide 30.0, Anion Gap 8, BUN 33 H, Creatinine 1.35 H, Estim Creat Clear Calc 43.63, Est GFR (MDRD) Af Amer 66, Est GFR (MDRD) Non-Af 54 L, BUN/Creatinine Ratio 24.4 H, Glucose 164 H, Calcium 9.3 Microbiology: Microbiology 01/02/23 23:00 Urine, Clean Catch Legionella Antigen - Final 01/02/23 23:00 Urine, Clean Catch Streptococcus pneumoniae Antigen (M - Final D/C Instructions Discharge Diet: 6 Cup Fluid Restriction and 2000 mg Sodium Diet Call your doctor if you observe: Shortness of breath Meaningful Use Info Meaningful Use Diagnoses (Choose all that apply): CHF CHF TASHI/ARB ordered at discharge?: No Reason TASHI/ARB not ordered?: Worsening renal disease Documented LVEF (%): 65 Discharge Plan Admission Admit Date/Time: 01/03/23 07:38 Primary Reason for Your Visit: acute on chronic hypoxic respiratory failure. Attending Provider: Tahir Thao Primary Care Provider: Rajeev Fry Consulting Providers: Ching Sadler ; Tino Lindsey ; Shane Montiel Discharge Orders/Prescriptions Prescriptions: New furosemide 40 mg Tablet 40 mg PO DAILY Qty: 30 0RF prednisone 10 mg tablet 10 mg PO DAILY Qty: 22 0RF Rx Instructions: 4 tabs daily for 1 days, then 3 tabs daily for 3 days, then 2 tabs daily for 3 days, then 1 tab daily for 3 days Continued fluticasone propionate 50 mcg/actuation spray,suspension 1 spray intranasal DAILY Rx Instructions: administer into each nostril omeprazole 20 mg capsule,delayed release(DR/EC) 20 mg PO DAILY montelukast [Singulair] 10 mg tablet 10 mg PO DAILY ezetimibe-simvastatin [Vytorin 10-10] 10-10 mg tablet 1 tab PO DAILY multivitamin [Multiple Vitamins] Tablet 1 tab PO DAILY Label Comments: centrum silver omega-3 fatty acids [Fish Oil Concentrate] 1,000 mg capsule 3,000 mg PO DAILY cholecalciferol (vitamin D3) 50 mcg (2,000 unit) tablet,chewable 50 mcg PO DAILY magnesium citrate 100 mg capsule 100 mg PO DAILY coenzyme Q10 100 mg capsule 100 mg PO DAILY Label Comments: COQ10 albuterol sulfate 2.5 mg /3 mL (0.083 %) solution for nebulization 2.5 mg inhalation Q4H PRN (Reason: shortness of breath or wheezing) Qty: 180 3RF Rx Instructions: R05 Chronic Cough topiramate 25 mg tablet 25 mg PO DAILY Eliquis 5 mg tablet 5 mg PO BID Advair HFA 230-21 mcg/actuation HFA aerosol inhaler 2 puff inhalation BID Qty: 3 3RF benzonatate 200 mg capsule 200 mg PO TID PRN (Reason: cough) Qty: 90 0RF guaifenesin 1,200 mg tablet extended release 12hr 1,200 mg PO Q12H Qty: 60 6RF Discontinued amlodipine [Norvasc] 5 mg tablet 5 mg PO DAILY Referrals / Follow Up: [facility] [Provider Group] - Within 1 Month Rajeev Fry DO [Primary Care Provider] - Within 2 Weeks Disposition Disposition (needs filled in before D/C Order can be placed): Home Health Service Charges/Coding Visit Charges Inpatient E&M: 59595 Disch Hosp >30min
--- NOTE | 2023-01-15 12:59 | NURSING ---
I spoke with Audrey at [facility] to inform her that the pt is being d/c today. I also faxed over all the d/c summary.
--- NOTE | 2023-01-15 13:02 | CASEMGMT ---
Addendum entered by Inge Davis 01/15/23 13:20: Oxygen script and home O2 testing results [place] [facility] at this time. animal physiology teacher, Saskia, made aware [employer] will need notified when pt is ready to discharge home, so the on-call local company intermodal truck driver can came to [facility] to provide portable tank regulator and to follow pt home. Original Note: VAIBHAV MAN NOTE: Pt being discharged home today. Amb pulse ox testing done. Pt requiring 3.5 l/m @ rest and 9 l/m w/exertion. As per previous note, [facility] unable to provide equipment for > 7 l/m and pt will need to switch to different DME provider. Call placed to Paul @ [facility]. He states they do have 10 L concentrators available/in stock and he has a portable O2 tank regulator that goes up as high as 12 L/M. He states he will deliver the regulator to [facility] when he is ready for discharge and will follow pt and home so he can deliver concentrator and other portable tanks to pt's home right away, as the portable tank will only last about an hour @ 9 l/m. VAIBHAV MAN to room and notified pt of same. He was made aware [employer] affiliated w/[facility] and are the only DME co in [place] that can deliver oxygen over the W/E. Pt states he is agreeable to [employer], but he asked VAIBHAV MNA to discuss this with his . Call placed to pt's @ this time and she was notified of all of the above. She voices understanding and is agreeable to pt switching to [employer]. Further questions answered. advised to contact [facility] on Tuesday to have them berry picker their oxygen equipment. She voices understanding. Bam AGGARWAL RN, CM
== END 2023-01-15 15:03 | disposition home health service (06) | DRG 291 ==
LOC: ICU 01-14 10:28 → PCU 01-14 17:51
PROVIDERS: Hospitalist; Internal Medicine; Internal Medicine Critical Care Medicine; Admitting Provider Family Medicine; PCP Family Medicine
DX: I13.0 Hypertensive heart and chronic kidney disease with heart failure and stage 1 through stage 4 chronic kidney disease, or unspecified chronic kidney disease (principal); J96.21 Acute and chronic respiratory failure with hypoxia; E43 Unspecified severe protein-calorie malnutrition; I50.31 Acute diastolic (congestive) heart failure; J84.9 Interstitial pulmonary disease, unspecified; Z99.81 Dependence on supplemental oxygen; Z79.01 Long term (current) use of anticoagulants; I48.0 Paroxysmal atrial fibrillation; N18.31 Chronic kidney disease, stage 3a; E78.00 Pure hypercholesterolemia, unspecified; K21.9 Gastro-esophageal reflux disease without esophagitis; R19.7 Diarrhea, unspecified; J45.991 Cough variant asthma; Z68.26 Body mass index [BMI] 26.0-26.9, adult; Z79.899 Other long term (current) drug therapy; Z86.16 Personal history of COVID-19; Z87.891 Personal history of nicotine dependence
CPT/HCPCS: 36415; 71045; 74230; 80048; 80053; 80202; 83605; 83880; 85025; 87449; 87641; 92526; 92610; 92611; 93005; 93306; 94003; 94640; 94660; 94668; 94762; 97110; 97116; 97162; 97166; 97530; 97535; 99252; J7050; A4216; G0463; J1940

== ENCOUNTER → 2023-02-22 | Outpatient (CLI) | payer MEDICARE, OTHER, SELFPAY ==
[2023-02-22 10:45] VITALS: PULSE 105; PULSE 106; PULSE 110; PULSE 112; PULSE 93; PULSE 95; PULSE 97; O2SAT 80; O2SAT 84; O2SAT 87; O2SAT 90; O2SAT 91; O2SAT 95; O2SAT 96
--- NOTE | 2023-02-22 11:26 | CPS ---
pt arrived on 2L nc he was placed on Room air. sats 84% on room air. placed back on 2L nc sats increased to 95%. Walk began and at 1 min sats 80% increased to 3L nc. sats 91%. At 3 min had to increased to 87% placed on 4L nc. sats 94%. As we finished out the walk he at 6min dropped to 87% so increased to 6L and sats increased to 95%. With sitting patients sats increased to 97% with rest.
--- NOTE | 2023-02-23 10:08 | PCM.PSN.6M ---
PSN 6 Minute Walk Test 6 Minute Walk Test 6 Minute Walk Test: 6 Minute Walk Test PSN:6-Minute Walk Test Start: 02/22/23 11:10 Freq: Status: Active Protocol: [id number] Document 02/22/23 10:45 EW (Rec: 02/22/23 11:39 EW [id number]) 6 Minute Walk Test Date Performed 02/22/23 Time Performed 10:45 Height 5 ft 8 in Weight: 172 lb Weight in Pounds 172.[address]: Ari Enciso Assistive device used: None Pre-test Oxygen Delivery Method Room Air Pulse Ox (%) 84 Pulse Rate (60-100 beats/min) 93 Dyspnea Tanya Scale (0-10) 1 Exertion Tanya Scale (6-20) 9 1st minute Oxygen Flow Rate (L/min) (L/min) 2 Oxygen Delivery Method Nasal Cannula Pulse Ox (%) 80 Pulse Rate (60-100 beats/min) 112 H 2nd minute Oxygen Flow Rate (L/min) (L/min) 3 Oxygen Delivery Method Nasal Cannula Pulse Ox (%) 91 Pulse Rate (60-100 beats/min) 97 3rd minute Oxygen Flow Rate (L/min) (L/min) 3 Oxygen Delivery Method Nasal Cannula Pulse Ox (%) 87 Pulse Rate (60-100 beats/min) 93 4th minute Oxygen Flow Rate (L/min) (L/min) 4 Oxygen Delivery Method Nasal Cannula Pulse Ox (%) 96 Pulse Rate (60-100 beats/min) 106 H 5th minute Oxygen Flow Rate (L/min) (L/min) 4 Oxygen Delivery Method Nasal Cannula Pulse Ox (%) 90 Pulse Rate (60-100 beats/min) 105 H 6th minute Oxygen Flow Rate (L/min) (L/min) 4 Oxygen Delivery Method Nasal Cannula Pulse Ox (%) 87 Pulse Rate (60-100 beats/min) 110 H Post-test Oxygen Flow Rate (L/min) (L/min) 6 Oxygen Delivery Method Nasal Cannula Pulse Ox (%) 95 Pulse Rate (60-100 beats/min) 95 Dyspnea Tanya Scale (0-10) 2 Exertion Tanya Scale (6-20) 13 Full Laps Walked 8 Partial Lap, Number of Tiles Walked 0 Total Distance Walked (ft) 472 02/22/23 11:26 Cardiopulmonary Services by Isela Sadler pt arrived on 2L nc he was placed on Room air. sats 84% on room air. placed back on 2L nc sats increased to 95%. Walk began and at 1 min sats 80% increased to 3L nc. sats 91%. At 3 min had to increased to 87% placed on 4L nc. sats 94%. As we finished out the walk he at 6min dropped to 87% so increased to 6L and sats increased to 95%. With sitting patients sats increased to 97% with rest. Initialized on 02/22/23 11:26 - END OF NOTE Interpretation Interpretation: The patient ambulated 472 feet over the course of 6 minutes. Pretesting oxygen saturation was noted to be 84% on room air. The patient began his test on 2 L/min of supplemental oxygen. He subsequently desaturated on several occasions throughout testing requiring an escalation in flow rate to 6 L/min with exertion to maintain appropriate saturations. Recommendations Recommendations: 2 L/min of supplemental oxygen is required at rest, while 6 L/min is required with exertion.
== END | disposition home or self-care (01) ==
PROVIDERS: PCP Family Medicine; Referring Provider Internal Medicine Critical Care Medicine; Visit Provider Internal Medicine Critical Care Medicine
DX: R05.3 Chronic cough (principal)
CPT/HCPCS: 94618